=== PATIENT | female | born 1940 | race Caucasian/White ===

== ENCOUNTER 2024-12-20 15:51 | Inpatient (IN) ==
--- NOTE | 2024-12-20 16:07 | Emergency Department Note ---
Impression & Plan Pneumonia, Acute respiratory acidosis, Respiratory failure, AMS (altered mental status) ED Provider Note NAME: CLINTON GALICIA AGE: 84 SEX: F : 1940 ARRIVES VIA: Ambulance INFORMANT: Patient, EMS, the patient's family. ED PROVIDER(S): Lenny Roth DO CHIEF COMPLAINT: Altered mental status HPI: The patient is an 84-year-old female who presented [facility] the emergency department [facility] jail for an evaluation of altered mental status. The patient was having worsening chest pain and difficulty breathing over the course of the last several days. The family went to visit the patient and they sent the patient to the emergency department for further evaluation. The patient himself is not really able to get my history. History is obtained from the family as well as EMS. ROS: See above HPI for pertinent positives & negatives. A total of 10 systems reviewed and were otherwise negative. PAST MEDICAL HISTORY: See Below PAST SURGICAL HISTORY: See Below FAMILY HISTORY: See Below SOCIAL HISTORY: See Below HOME MEDICATIONS: See Below ALLERGIES: See Below VITALS: See Below PHYSICAL EXAMINATION: GENERAL: The patient is listless and slow to respond to questions. EYES: The conjunctivae are clear. The pupils are round and reactive. EARS, NOSE, MOUTH AND THROAT: The nose is without any evidence of any deformity. NECK: The neck is nontender and supple. RESPIRATORY: Diminished breath sounds were noted throughout. Rales are noted in the right lung field. There was significant tachypnea noted. CARDIOVASCULAR: Regular rate and rhythm noted there no murmurs rubs or gallops normal S1 normal S2. GASTROINTESTINAL: The abdomen is soft. Abdomen is nontender. MUSCULOSKELETAL/EXTREMITIES: There is no evidence of gross deformity full range of motion is noted in the hips and shoulders. SKIN: Skin was cool and dry. Pedal edema was noted bilaterally. NEUROLOGIC: Patient is awake to loud verbal commands. Strength was diminished but symmetric. MEDICAL DECISION MAKING: The patient is an 84-year-old female who presented to the emergency department for an evaluation of difficulty breathing. The patient has been having worsening breathing difficulty at her jail over the course the last several days. The patient was seen by the daughter today and was sent to the emergency department for concerns of worsening symptoms. The patient was obtunded. She had abnormal lung sounds. Chest x-ray does appear to be consistent with pneumonia. There was no reported aspiration or vomiting but it is possible that this represents aspiration as well given the location of the infiltrate. The patient was treated with IV fluids and IV antibiotics. The patient was also treated with bronchodilator therapy. I discussed patient's laboratory and radiographic studies with the daughter. At this time the family would still not want the patient to get CPR or be on a ventilator. I [facility] the [facility] have agreed to evaluate the patient in the emergency department for further management and disposition. Triage Nursing notes reviewed. Prior medical records reviewed Vital Signs: reviewed and remarkable for tachypnea and hypoxia. Differential diagnosis: Reactive airway disease, pneumonia, pneumothorax, COPD, CHF, infections, cardiac ischemia, pulmonary embolism, musculoskeletal, gastrointestinal, as well as other pathologies. ER treatment provided: See below Diagnostics interpreted by me: ECG: EKG was obtained in the emergency department. My interpretation is normal sinus rhythm at 84 bpm. There is no ectopy. There is no acute ST segment abnormalities noted. This was compared to a tracing from October 17, 2020. No changes were noted. Cardiac Monitoring: An order was placed for continuous cardiac monitoring. The monitor shows a rate of 73 bpm with sinus rhythm. Laboratory studies: As stated above and show below. Imaging studies: See below. Radiographic imaging was reviewed by myself Consultation(s): Dr. Cummins who [facility]. ED COURSE: Procedures: none Critical Care: I have personally spent greater than 40 minutes of critical care time in the direct management of this patient. This includes bedside care, interpretation of diagnostic studies, and testing, discussion with consultants, patient, and family members, and other required patient management activities. This 40 minutes is in excess of all separately billable procedures. Past Med/Surg History Problem List (Updated 12/20/24 @ 18:00 by Lenny Roth DO) AMS (altered mental status) (Acute) Respiratory failure (Acute) Acute respiratory acidosis (Acute) Pneumonia (Acute) Boles cyst Osteoarthritis of left knee Obesity (BMI 30-39.9) GERD (gastroesophageal reflux disease) Dementia Social History Smoking Status: Unknown if ever smoked Current Living Situation: [facility] current occupational status: retired Feels Safe at Home: Yes Allergies Allergies Allergy/AdvReac Type Severity Reaction Status Date / Time iodine Allergy Unknown ON CENTRE Verified 12/20/24 16:45 CARE MED LIST Penicillins Allergy Unknown ON CENTRE Verified 12/20/24 16:45 CARE MED LIST Sulfa (Sulfonamide Allergy Unknown ON CENTRE Verified 12/20/24 16:45 Antibiotics) CARE MED LIST sulfamethoxazole Allergy Unknown ON CENTRE Verified 12/20/24 16:45 [From Bactrim] CARE MED LIST trimethoprim [From Bactrim] Allergy Unknown ON CENTRE Verified 12/20/24 16:45 CARE MED LIST cephalexin [From Keflex] Allergy ON CENTRE Verified 12/20/24 16:45 CARE MED LIST 131 tositumomab Allergy Unknown ON CENTRE Uncoded 12/20/24 16:45 CARE MED LIST Home Meds Home Medications Medication Instructions Recorded Confirmed acetaminophen 325 mg tablet 650 mg PO Q6 PRN PAIN/FEVER 10/17/20 12/20/24 (Tylenol) bisacodyl 10 mg rectal suppository 10 mg SC DAILY PRN Constipation 10/17/20 12/20/24 (Dulcolax (bisacodyl)) escitalopram oxalate 10 mg tablet 10 mg PO HS 10/17/20 12/20/24 (Lexapro) ferrous sulfate 325 mg (65 mg 325 mg PO QAM 10/17/20 12/20/24 iron) tablet (FeroSul) gabapentin 100 mg tablet 100 mg PO TIDM 10/17/20 12/20/24 lidocaine 4 % topical patch 1 patch topical DAILY 10/17/20 12/20/24 memantine 10 mg tablet 10 mg PO BIDM 10/17/20 12/20/24 nitroglycerin 0.4 mg sublingual 0.4 mg sublingual UD PRN Chest Pain 10/17/20 12/20/24 tablet (Nitrostat) pantoprazole 40 mg tablet,delayed 40 mg PO HS 10/17/20 12/20/24 release Bacillus coagulans 2 billion 1 tab PO BID 12/20/24 12/20/24 cell-vitamin D3 5 mcg chewable tablet (Probiotic (with Vitamin D3)) acetaminophen 325 mg tablet 650 mg PO TIDM 12/20/24 12/20/24 (Tylenol) aluminum-mag hydroxide-simethicone 15 ml PO Q6H PRN EPIGASTRIC PAIN 12/20/24 12/20/24 400 mg-400 mg-40 mg/5 mL oral susp aspirin 81 mg tablet,delayed 81 mg PO DAILY 12/20/24 12/20/24 release atropine 1 % eye drops 2 drp buccal Q1H PRN EXCESSIVE 12/20/24 12/20/24 SECRETIONS bupropion HCl 100 mg tablet 200 mg PO BIDM 12/20/24 12/20/24 lamotrigine 25 mg tablet (Lamictal) 25 mg PO HS 12/20/24 12/20/24 morphine concentrate 20 mg/mL oral 10 mg sublingual Q1H PRN Pain 12/20/24 12/20/24 syringe (FOR ORAL USE ONLY) polyethylene glycol 3350 17 17 g PO DAILY 12/20/24 12/20/24 gram/dose oral powder (Miralax) promethazine 25 mg/mL injection 25 mg IM Q8H PRN NAUSEA/VOMITING 12/20/24 12/20/24 solution FOR 14 DAYS risperidone 0.25 mg tablet 0.25 mg PO BIDM 12/20/24 12/20/24 sennosides 8.6 mg-docusate sodium 1 tab-cap PO BIDM 12/20/24 12/20/24 50 mg tablet (Senna Plus) Results & Data (ED) Vital Signs Vital Signs - 24 hr 12/20/24 16:10 12/20/24 16:10 12/20/24 16:20 Temperature 36.9 C Temperature Source Axillary Pulse Rate 84 Pulse Rate [Apical] 98 H 83 Pulse Rhythm [Apical] Regular Respiratory Rate 26 H 24 25 H Respiratory Effort / Characteristics Spontaneous Labored Spontaneous Labored Spontaneous Labored Respiratory Depth Normal Blood Pressure 95/70 L Blood Pressure [Right Arm] 100/52 L 87/56 L Blood Pressure Mean 78 Blood Pressure Mean [Right Arm] 68 66 Pulse Oximetry 95 94 95 Oxygen Delivery Method Room Air Non-rebreather Non-rebreather Oxygen Flow Rate 15 15 Sepsis Recent Fever Within 48 Hours No Sepsis New/Unexplained Change in Mental Status N/A Sepsis Action Taken by Nursing Physician Notified 12/20/24 16:30 12/20/24 16:33 12/20/24 16:45 Temperature Temperature Source Pulse Rate 81 Pulse Rate [Apical] 83 88 Pulse Rhythm [Apical] Respiratory Rate 24 25 H Respiratory Effort / Characteristics Spontaneous Labored Spontaneous Labored Respiratory Depth Blood Pressure Blood Pressure [Right Arm] 95/70 L 118/62 Blood Pressure Mean Blood Pressure Mean [Right Arm] 78 80 Pulse Oximetry 94 93 Oxygen Delivery Method Non-rebreather Non-rebreather Oxygen Flow Rate 13 13 Sepsis Recent Fever Within 48 Hours Sepsis New/Unexplained Change in Mental Status Sepsis Action Taken by Nursing 12/20/24 16:59 Temperature Temperature Source Pulse Rate 73 Pulse Rate [Apical] Pulse Rhythm [Apical] Respiratory Rate Respiratory Effort / Characteristics Respiratory Depth Blood Pressure Blood Pressure [Right Arm] Blood Pressure Mean Blood Pressure Mean [Right Arm] Pulse Oximetry 93 Oxygen Delivery Method Non-rebreather Oxygen Flow Rate 13 Sepsis Recent Fever Within 48 Hours Sepsis New/Unexplained Change in Mental Status Sepsis Action Taken by [facility] Medications Current Medication List: was personally reviewed by me Laboratory Data Attestation: I reviewed the patient's lab results. 12/20/24 16:03 12/20/24 16:03 Lab Results 12/20/24 12/20/24 12/20/24 Range/Units 16:03 16:41 17:05 WBC 2.96 L (4.8-10.8) K/ul RBC 3.52 L (4.20-5.40) M/uL Hgb 11.0 L (12.0-16.0) g/dl Hct 35.2 L (37.0-47.0) % MCV 100.0 (80.0-100.0) fL MCH 31.3 (25.0-34.0) pg MCHC 31.3 L (32.0-36.0) g/dL RDW Std Deviation 49.1 H (36.4-46.3) fL RDW Coeff of Guilherme 13.3 (11.5-14.5) % Plt Count 169 (130-400) K/uL MPV 10.4 (9.4-12.4) fL Immature Gran % (Auto) 0.3 % Neut % (Auto) 73.0 % Lymph % (Auto) 15.9 % [place] % (Auto) 10.1 % Eos % (Auto) 0.0 % Baso % (Auto) 0.7 % Neut # (Auto) 2.16 (1.40-6.50) K/uL Lymph # (Auto) 0.47 L (1.20-3.40) K/uL [place] # (Auto) 0.30 (0.11-0.59) K/uL Eos # (Auto) 0.00 (0.00-0.50) K/uL Baso # (Auto) 0.02 (0.00-0.20) K/uL Immature Gran # (Auto) 0.01 (0.01-0.20) K/uL PT 11.4 (9.0-12.0) Seconds INR 1.1 (0.9-1.1) APTT 25 (21-31) Seconds PTT Ratio 0.9 VBG pH 7.27 L (7.36-7.41) VBG pCO2 60 H (38-50) mmHg VBG pO2 30 mmHg VBG HCO3 28 mmol/L VBG O2 Saturation < 60.0 % VBG Base Excess -0.6 mEq/L Sodium 142 (136-145) mmol/L Potassium 4.1 (3.5-5.1) mmol/L Chloride 109 H (98-107) mmol/L Carbon Dioxide 27 (21-32) mmol/L Anion Gap 6 (3-11) BUN 23 (6-23) mg/dl Creatinine 0.73 (0.6-1.2) mg/dl Est Cr Clr Drug Dosing 65.3 ml/min eGFR 81.55 BUN/Creatinine Ratio 31.5 H (10-20) Glucose 109 H (70-99(Fasting)) mg/dl Lactate 2.1 H* (0.4-2.0) mmol/L Calcium 8.1 L (8.6-10.3) mg/dl Magnesium 1.8 (1.7-2.4) mg/dl Total Bilirubin 0.8 (0.2-1.0) mg/dl Direct Bilirubin TNP AST 19 (13-39) U/L ALT 10 (7-52) U/L Alkaline Phosphatase 59 (34-104) U/L Troponin I High Sens 37.9 H (0-14) pg/ml Total Protein 5.5 L (6.0-8.3) gm/dl Albumin 3.0 L (3.4-5.0) gm/dl Procalcitonin 2.10 H (0-0.5) ng/ml Urine Color Urine Appearance (Clear) Urine pH (4.5-7.5) Ur Specific [place] (1.000-1.030) Urine Protein (Negative) Urine Glucose (UA) (Negative) Urine Ketones (Negative) Urine Blood (Negative) Urine Nitrite (Negative) Urine Bilirubin (Negative) Urine Urobilinogen (Negative) Ur Leukocyte Esterase (Negative) Urine RBC (0-2) /hpf Urine WBC (0-5) /hpf Ur Epithelial Cells (0-2) /hpf Calcium Oxalate Crystal (None Prsent) Urine Bacteria (None Seen) Urine Comment Adenovirus (PCR) Not Detected (NotDetected) B. pertussis DNA (PCR) Not Detected (NotDetected) B.parapertussis DNA PCR Not Detected (NotDetected) C. pneumoniae DNA (PCR) Not Detected (NotDetected) Coronavirus OC43 (PCR) Not Detected (NotDetected) Coronavirus HKU1 (PCR) Not Detected (NotDetected) Coronavirus 229E (PCR) Not Detected (NotDetected) SARS-CoV-2 (PCR) Not Detected (NotDetected) Coronavirus NL63 (PCR) Not Detected (NotDetected) Human Metapneumovir PCR Not Detected (NotDetected) Influenza Type A (PCR) Not Detected (NotDetected) Influenza Type B (PCR) Not Detected (NotDetected) M. pneumoniae (PCR) Not Detected (NotDetected) Parainfluenza 1 (PCR) Not Detected (NotDetected) Parainfluenza 2 (PCR) Not Detected (NotDetected) Parainfluenza 3 (PCR) Not Detected (NotDetected) Parainfluenza 4 (PCR) Not Detected (NotDetected) RSV (PCR) Not Detected (NotDetected) Entero/Rhino (PCR) Not Detected (NotDetected) 12/20/24 12/20/24 Range/Units 17:07 17:33 WBC (4.8-10.8) K/ul RBC (4.20-5.40) M/uL Hgb (12.0-16.0) g/dl Hct (37.0-47.0) % MCV (80.0-100.0) fL MCH (25.0-34.0) pg MCHC (32.0-36.0) g/dL RDW Std Deviation (36.4-46.3) fL RDW Coeff of Guilherme (11.5-14.5) % Plt Count (130-400) K/uL MPV (9.4-12.4) fL Immature Gran % (Auto) % Neut % (Auto) % Lymph % (Auto) % [place] % (Auto) % Eos % (Auto) % Baso % (Auto) % Neut # (Auto) (1.40-6.50) K/uL Lymph # (Auto) (1.20-3.40) K/uL [place] # (Auto) (0.11-0.59) K/uL Eos # (Auto) (0.00-0.50) K/uL Baso # (Auto) (0.00-0.20) K/uL Immature Gran # (Auto) (0.01-0.20) K/uL PT (9.0-12.0) Seconds INR (0.9-1.1) APTT (21-31) Seconds PTT Ratio VBG pH (7.36-7.41) VBG pCO2 (38-50) mmHg VBG pO2 mmHg VBG HCO3 mmol/L VBG O2 Saturation % VBG Base Excess mEq/L Sodium (136-145) mmol/L Potassium (3.5-5.1) mmol/L Chloride (98-107) mmol/L Carbon Dioxide (21-32) mmol/L Anion Gap (3-11) BUN (6-23) mg/dl Creatinine (0.6-1.2) mg/dl Est Cr Clr Drug Dosing ml/min eGFR BUN/Creatinine Ratio (10-20) Glucose (70-99(Fasting)) mg/dl Lactate (0.4-2.0) mmol/L Calcium (8.6-10.3) mg/dl Magnesium (1.7-2.4) mg/dl Total Bilirubin (0.2-1.0) mg/dl Direct Bilirubin 0.3 H AST (13-39) U/L ALT (7-52) U/L Alkaline Phosphatase (34-104) U/L Troponin I High Sens (0-14) pg/ml Total Protein (6.0-8.3) gm/dl Albumin (3.4-5.0) gm/dl Procalcitonin (0-0.5) ng/ml Urine Color Yellow Urine Appearance Cloudy A (Clear) Urine pH 5.5 (4.5-7.5) Ur Specific [place] 1.025 (1.000-1.030) Urine Protein Trace H (Negative) Urine Glucose (UA) Negative (Negative) Urine Ketones Negative (Negative) Urine Blood Negative (Negative) Urine Nitrite Negative (Negative) Urine Bilirubin Negative (Negative) Urine Urobilinogen Negative (Negative) Ur Leukocyte Esterase 1+ H (Negative) Urine RBC 0-2 (0-2) /hpf Urine WBC 21-50 H (0-5) /hpf Ur Epithelial Cells 11-20 H (0-2) /hpf Calcium Oxalate Crystal Present A (None Prsent) Urine Bacteria 3+ H (None Seen) Urine Comment Adenovirus (PCR) (NotDetected) B. pertussis DNA (PCR) (NotDetected) B.parapertussis DNA PCR (NotDetected) C. pneumoniae DNA (PCR) (NotDetected) Coronavirus OC43 (PCR) (NotDetected) Coronavirus HKU1 (PCR) (NotDetected) Coronavirus 229E (PCR) (NotDetected) SARS-CoV-2 (PCR) (NotDetected) Coronavirus NL63 (PCR) (NotDetected) Human Metapneumovir PCR (NotDetected) Influenza Type A (PCR) (NotDetected) Influenza Type B (PCR) (NotDetected) M. pneumoniae (PCR) (NotDetected) Parainfluenza 1 (PCR) (NotDetected) Parainfluenza 2 (PCR) (NotDetected) Parainfluenza 3 (PCR) (NotDetected) Parainfluenza 4 (PCR) (NotDetected) RSV (PCR) (NotDetected) Entero/Rhino (PCR) (NotDetected) Administered Medications Discontinued Medications Albuterol (Albut/Ipratrop 3mg/0.5mg Neb 3 Ml Vial) 3 ml NEB NOW STA; Protocol Stop: 12/20/24 17:51 Last Admin: 12/20/24 18:07 Dose: 3 ml Documented By: SELENA Ceftriaxone Sodium (Rocephin) 2,000 mg in 50 mls @ 100 mls/hr IV NOW STA Stop: 12/20/24 16:49 Last Admin: 12/20/24 18:01 Dose: 100 mls/hr Documented By: SELENA Sodium Chloride (Nss) 500 mls @ 999 mls/hr IV .Q31M ONE Stop: 12/20/24 17:10 Last Admin: 12/20/24 17:52 Dose: 999 mls/hr Documented By: SELENA Imaging Data Attestation: I personally reviewed and interpreted this imaging study as follows: My Impression: 1 view chest x-ray was obtained in the emergency department. My interpretation is right lower lobe infiltrate with elevation of the right hemidiaphragm, final report below. Radiologist's Impression: Chest X-Ray 12/20/24 15:55 Exam: Chest one view portable Reason for exam: Sepsis Previous studies: 10/17/2020. FINDINGS: Heart is moderately enlarged. Extensive right perihilar lung consolidation is seen with less extensive consolidation in the left perihilar and lower lobe regions. On the right further consolidation seen in the right middle and lower lobe as well. Underlying pulmonary venous congestion is most likely present. Small bilateral pleural effusions present. Chronic elevation of the right hemidiaphragm is unchanged. IMPRESSION: 1. Cardiomegaly with significant pulmonary venous hypertension. 2. Significant abnormal perihilar and lower lobe as well as right middle lobe lung consolidation, right side greater than left, with small pleural effusions. 3. Findings may represent CHF, ARDS with sepsis and/or pneumonitis. Radiographic follow-up is recommended. Electronically signed by Bridger Núñez 12-20-2024 5:01 PM Discharge Plan Visit Data Stated Complaint: CHEST PAIN, SOB ED Provider: Lenny Roth Discharge Problem: Pneumonia, Acute respiratory acidosis, Respiratory failure, AMS (altered mental status) Patient Disposition: Being Evaluated by Hospitalist Condition: Fair Prescriptions Prescriptions: No Action acetaminophen [Tylenol] 325 mg Tablet 650 mg PO Q6 MDD 3 GRAMS APAP/24 HOURS PRN (Reason: PAIN/FEVER) lidocaine 4 % Adhesive Patch,Medicated 1 patch TOPICAL DAILY Rx Instructions: PUT ON QAM, REMOVE AT HS bisacodyl [Dulcolax (bisacodyl)] 10 mg Suppository 10 mg SC DAILY PRN (Reason: Constipation) Rx Instructions: per bowel protocol pantoprazole 40 mg Tablet,Delayed Release (Dr/Ec) 40 mg PO HS ferrous sulfate [FeroSul] 325 mg (65 mg iron) tablet 325 mg PO QAM nitroglycerin [Nitrostat] 0.4 mg Tablet, Sublingual 0.4 mg sublingual UD PRN (Reason: Chest Pain) escitalopram oxalate [Lexapro] 10 mg Tablet 10 mg PO HS memantine 10 mg Tablet 10 mg PO BIDM gabapentin 100 mg Tablet 100 mg PO TIDM acetaminophen [Tylenol] 325 mg Tablet 650 mg PO TIDM MDD 3 GRAMS APAP/24 HOURS sennosides-docusate sodium [Senna Plus] 8.6-50 mg Tablet 1 tab-cap PO BIDM risperidone [Risperdal] 0.25 mg Tablet 0.25 mg PO BIDM aspirin 81 mg Tablet,Delayed Release (Dr/Ec) 81 mg PO DAILY lamotrigine [Lamictal] 25 mg Tablet 25 mg PO HS bupropion HCl 100 mg tablet 200 mg PO BIDM promethazine 25 mg/mL Solution 25 mg IM Q8H PRN (Reason: NAUSEA/VOMITING FOR 14 DAYS) Rx Instructions: STARTED 12/20/24 polyethylene glycol 3350 [Miralax] 17 gram/dose Powder 17 g PO DAILY atropine 1 % Drops 2 drp BUCCAL Q1H PRN (Reason: EXCESSIVE SECRETIONS) alum-mag hydroxide-simeth [Maalox Plus Extra Strength] 400-400-40 mg/5 mL Suspension 15 ml PO Q6H PRN (Reason: EPIGASTRIC PAIN) morphine concentrate 20 mg/mL Syringe 10 mg SUBLINGUAL Q1H PRN (Reason: Pain) Probiotic (with Vitamin D3) 2 billion cell- 5 mcg Tablet,Chewable 1 tab PO BID Referrals Referrals: [facility] [Primary Care Provider] -
[2024-12-20 16:42] LABS: Hematocrit (blood only) 35.2 % (37.0-47.0); Hemoglobin 11.0 g/dl (12.0-16.0); Mean Corpuscular Hemoglobin 31.3 pg (25.0-34.0); Mean Corpuscular Volume 100.0 fL (80.0-100.0); Platelet Count 169 K/uL (130-400); RDW Standard Deviation 49.1 fL (36.4-46.3); Red Blood Count 3.52 M/uL (4.20-5.40); White Blood Count 2.96 K/ul (4.8-10.8)
[2024-12-20 16:43] LABS: Immature Granulocytes # (auto) 0.01 K/uL (0.01-0.20); Immature Granulocytes % (auto) 0.3 %
[2024-12-20 16:49] LABS: Alanine Aminotransferase 10 U/L (7-52); Alkaline Phosphatase 59 U/L (34-104); Anion Gap 6 (3-11); Bilirubin,Total 0.8 mg/dl (0.2-1.0); Blood Urea Nitrogen 23 mg/dl (6-23); Calcium 8.1 mg/dl (8.6-10.3); Carbon Dioxide 27 mmol/L (21-32); Chloride 109 mmol/L (98-107); Creatinine Clr Calc Pharmacy 65.3 ml/min; Glucose 109 mg/dl (70-99(Fasting)); Magnesium 1.8 mg/dl (1.7-2.4); Potassium 4.1 mmol/L (3.5-5.1); Sodium 142 mmol/L (136-145); Total Protein 5.5 gm/dl (6.0-8.3)
[2024-12-20 16:52] LABS: INR 1.1 (0.9-1.1); Partial Thromboplastin Time 25 Seconds (21-31); Prothrombin Time 11.4 Seconds (9.0-12.0)
--- NOTE | 2024-12-20 17:01 | XRay Report ---
Exam: Chest one view portable Reason for exam: Sepsis Previous studies: 10/17/2020. FINDINGS: Heart is moderately enlarged. Extensive right perihilar lung consolidation is seen with less extensive consolidation in the left perihilar and lower lobe regions. On the right further consolidation seen in the right middle and lower lobe as well. Underlying pulmonary venous congestion is most likely present. Small bilateral pleural effusions present. Chronic elevation of the right hemidiaphragm is unchanged. IMPRESSION: 1. Cardiomegaly with significant pulmonary venous hypertension. 2. Significant abnormal perihilar and lower lobe as well as right middle lobe lung consolidation, right side greater than left, with small pleural effusions. 3. Findings may represent CHF, ARDS with sepsis and/or pneumonitis. Radiographic follow-up is recommended. Electronically signed by Bridger úNñez 12-20-2024 5:01 PM
[2024-12-20 17:28] LABS: Base Excess VBG -0.6 mEq/L; HCO3 VBG 28 mmol/L; Oxygen Saturation VBG < 60.0 %; PCO2 VBG 60 mmHg (38-50); PO2 VBG 30 mmHg; pH VBG 7.27 (7.36-7.41)
[2024-12-20 17:47] LABS: Appearance Urine Cloudy (Clear); Glucose Urine UA Negative (Negative)
[2024-12-20 17:48] LABS: Chlamydia pneumoniae PCR Not Detected (NotDetected); Coronavirus 229E PCR Not Detected (NotDetected); Coronavirus CoV-2 (COVID19)PCR Not Detected (NotDetected); Coronavirus HKU1 PCR Not Detected (NotDetected); Coronavirus NL63 PCR Not Detected (NotDetected); Coronavirus OC43PCR Not Detected (NotDetected); Human Metapneumovirus PCR Not Detected (NotDetected); Parainfluenza Virus 1 PCR Not Detected (NotDetected); Parainfluenza Virus 2 PCR Not Detected (NotDetected); Parainfluenza Virus 3 PCR Not Detected (NotDetected); Parainfluenza Virus 4 PCR Not Detected (NotDetected); Respiratory Syncytial VirusPCR Not Detected (NotDetected); Rhinovirus/Enterovirus PCR Not Detected (NotDetected)
[2024-12-20] MEDS: SODIUM CHLORIDE 0.9% 500 ML IV ONE ×2 (17:52→18:56)
[2024-12-20] MEDS: cefTRIAXone SODIUM 2,000 MG/50 ML BAG IV STA (18:01)
[2024-12-20] MEDS: ALBUT/IPRATROP 3MG/0.5MG NEB 3 ML VIAL NEB STA (18:07)
[2024-12-20] MEDS ORDERED: VANCOMYCIN CONSULT ACTIVE PRN (19:06)
--- NOTE | 2024-12-20 19:23 | History & Physical Report ---
Date of Service December 20, 2024 Assessment & Plan (1) Respiratory failure: (2) Acute respiratory acidosis: (3) AMS (altered mental status): (4) Pneumonia: Plan #Hypoxic respiratory failure/hypercapnic respiratory failure appears to have an infiltrateher leukopenia and tachypnea would make this sepsis present on admission, concern about septic shock given her at times hypotensive readings. Concurrently, I have significant concerns about her having pulmonary edema at the same timegiven that that would be indicative of a very severe multiorgan decompensation that may not be able to be stabilized. To better delineate what is going on in her lungs I have ordered a stat noncontrast chest CT to better discern how much is infiltrate and how much is pulmonary edema, case signed out to overnight coverage for ongoing vigilance and follow-up as far as the pneumonia itselfgiven her borderline septic shock as well as respiratory failure, will cover for both MRSA and Pseudomonas until she stabilizes or proven otherwisevancomycin and cefepime for now, MRSA naris, follow cultures, serial exams. - As far as the potential for pulmonary edemaif she has pulmonary edema, it would really depend on what her blood pressures are doingwould hesitate to use bolus dosing of diuretics, but where her pressures are currently could be amenable to a diuretic drip, certainly BiPAP would be of benefit, and she may need ICU for cardiac pressors (daughter is okay with this) #hypotension if it is all sepsis/septic shock, certainly could give more fluid boluses, but if there is pulmonary edema obviously this would be contraindicatedand then we may need to moved to ICU for peripheral vasoconstrictor pressor support sooner rather than later depending on her progress. #Delirium from all of above. Unclear baseline with her history of dementia, although it sounds like it is certainly far better than this. As I described delirium to the patient's daughter she recognized the syndrome and remembered that the patient had it previously about 7 years ago. Discussed the natural history of deliriums and how they often outlast the inciting illnesses #dementia Home meds will have to be on hold until she is alert enough to safely swallow #DVT prophylaxis Lovenox #elevated troponin appears to be consistent with demand ischemia given her hypoxia and hypotensioncontinue to trend until peak. Echocardiogram in the morning. Case discussed with overnight coverage as well as overnight ICU coverage. History of Present Illness Chief Complaint: unresponsive Primary Care Provider: [facility] patient is an 84-year-old female presenting from [facility] unresponsive. Her daughter notes that on Friday she was in her normal state of healthnoting that they were playing [employer] and the patient was correcting some of the daughter's mistakes. Today she found her to be unresponsive. She had very coarse respirations. No HPI or review of systems obtainable from patient. She was sent to the ER for further evaluation. Here she was found to be hypoxic as well as hypercapnic with a chest x-ray consistent with infiltrate and possibly pulmonary edema. Allergies Allergy/AdvReac Type Severity Reaction Status Date / Time iodine Allergy Unknown ON CENTRE Verified 12/20/24 16:45 CARE MED LIST Penicillins Allergy Unknown ON CENTRE Verified 12/20/24 16:45 CARE MED LIST Sulfa (Sulfonamide Allergy Unknown ON CENTRE Verified 12/20/24 16:45 Antibiotics) CARE MED LIST sulfamethoxazole Allergy Unknown ON CENTRE Verified 12/20/24 16:45 [From Bactrim] CARE MED LIST trimethoprim [From Bactrim] Allergy Unknown ON CENTRE Verified 12/20/24 16:45 CARE MED LIST cephalexin [From Keflex] Allergy ON CENTRE Verified 12/20/24 16:45 CARE MED LIST 131 tositumomab Allergy Unknown ON CENTRE Uncoded 12/20/24 16:45 CARE MED LIST Home Medications Medication Instructions Recorded Confirmed Type acetaminophen 325 mg tablet 650 mg PO Q6 PRN PAIN/FEVER 10/17/20 12/20/24 History (Tylenol) bisacodyl 10 mg rectal suppository 10 mg CO DAILY PRN Constipation 10/17/20 12/20/24 History (Dulcolax (bisacodyl)) escitalopram oxalate 10 mg tablet 10 mg PO HS 10/17/20 12/20/24 History (Lexapro) ferrous sulfate 325 mg (65 mg 325 mg PO QAM 10/17/20 12/20/24 History iron) tablet (FeroSul) gabapentin 100 mg tablet 100 mg PO TIDM 10/17/20 12/20/24 History lidocaine 4 % topical patch 1 patch topical DAILY 10/17/20 12/20/24 History memantine 10 mg tablet 10 mg PO BIDM 10/17/20 12/20/24 History nitroglycerin 0.4 mg sublingual 0.4 mg sublingual UD PRN Chest Pain 10/17/20 12/20/24 History tablet (Nitrostat) pantoprazole 40 mg tablet,delayed 40 mg PO HS 10/17/20 12/20/24 History release Bacillus coagulans 2 billion 1 tab PO BID 12/20/24 12/20/24 History cell-vitamin D3 5 mcg chewable tablet (Probiotic (with Vitamin D3)) acetaminophen 325 mg tablet 650 mg PO TIDM 12/20/24 12/20/24 History (Tylenol) aluminum-mag hydroxide-simethicone 15 ml PO Q6H PRN EPIGASTRIC PAIN 12/20/24 12/20/24 History 400 mg-400 mg-40 mg/5 mL oral susp aspirin 81 mg tablet,delayed 81 mg PO DAILY 12/20/24 12/20/24 History release atropine 1 % eye drops 2 drp buccal Q1H PRN EXCESSIVE 12/20/24 12/20/24 History SECRETIONS bupropion HCl 100 mg tablet 200 mg PO BIDM 12/20/24 12/20/24 History lamotrigine 25 mg tablet (Lamictal) 25 mg PO HS 12/20/24 12/20/24 History morphine concentrate 20 mg/mL oral 10 mg sublingual Q1H PRN Pain 12/20/24 12/20/24 History syringe (FOR ORAL USE ONLY) polyethylene glycol 3350 17 17 g PO DAILY 12/20/24 12/20/24 History gram/dose oral powder (Miralax) promethazine 25 mg/mL injection 25 mg IM Q8H PRN NAUSEA/VOMITING 12/20/24 12/20/24 History solution FOR 14 DAYS risperidone 0.25 mg tablet 0.25 mg PO BIDM 12/20/24 12/20/24 History sennosides 8.6 mg-docusate sodium 1 tab-cap PO BIDM 12/20/24 12/20/24 History 50 mg tablet (Senna Plus) Past Med/Surg History Problem List AMS (altered mental status) (Acute) Respiratory failure (Acute) Acute respiratory acidosis (Acute) Pneumonia (Acute) Boles cyst Osteoarthritis of left knee Obesity (BMI 30-39.9) GERD (gastroesophageal reflux disease) Dementia Social History Smoking Status: Unknown if ever smoked Current Living Situation: [facility] current occupational status: retired Feels Safe at Home: Yes Review of Systems Review of Systems: Unobtainable due to cognitive status Physical Exam Physical Exam: Sedated and still appears to be in a degree of respiratory distress with mild degree of tachypnea and occasional accessory muscles. Normocephalic atraumatic mucous membranes moist. Cardio is distant and obscured by lung sounds. Lungs are coarse bilaterally probably a little more quiet on the right than the left, rhonchi maybe scattered rales no overt wheezes occasional accessory muscle use. Abdomen is soft nondistended no notable tenderness guarding rebound or rigidity. Extremities show bilateral lower extremity edema fairly symmetric. Neuro shows cranial nerves II through XII be grossly intact although no real neuroexam was able to be donejust no asymmetry at rest. Muscle tone appears to be equal at rest. Skin with mild pallor. Her CBC shows leukopenia with a white count of 3 hemoglobin 11, platelets 169, VBG shows a respiratory acidosis with a pCO2 of 60 and a pH of 7.27,, chest x-ray shows a right-sided infiltrate and question of some pulmonary edemavery difficult to interpret film. Procalcitonin 2.1. When I was in the room, her blood pressure was briefly 75 systolic, although I am not sure of the reliability of that reading given that rechecks a few minutes later had her up to 90/60 with no intervention. Results & Data Results & Data Vital Signs (Past 12 Hours) Vital Signs Temp Pulse Pulse Resp BP BP Pulse Ox 12/20/24 18:51 81 26 H 114/72 94 12/20/24 18:45 74/57 L 12/20/24 18:24 85 23 91/69 L 92 12/20/24 18:18 77 28 H 90/61 L 93 12/20/24 18:15 77 30 H 75/51 L 97 12/20/24 18:03 80 25 H 92/65 L 95 12/20/24 17:27 85 24 103/47 L 91 12/20/24 16:59 73 93 12/20/24 16:45 88 25 H 118/62 93 12/20/24 16:33 81 12/20/24 16:30 73 23 118/62 92 12/20/24 16:30 83 24 95/70 L 94 12/20/24 16:20 83 25 H 87/56 L 95 12/20/24 16:10 98 H 24 100/52 L 94 12/20/24 16:10 98.4 F 84 26 H 95/70 L 95 O2 Del Method O2 Flow Rate 12/20/24 18:51 Oxymask 7 12/20/24 18:45 12/20/24 18:24 Nebulizer 7 12/20/24 18:18 Nebulizer 12/20/24 18:15 Non-rebreather 12/20/24 18:03 Non-rebreather 12/20/24 17:27 Non-rebreather 12/20/24 16:59 Non-rebreather 12/20/24 16:45 Non-rebreather 12/20/24 16:33 12/20/24 16:30 Non-rebreather 12/20/24 16:30 Non-rebreather 12/20/24 16:20 Non-rebreather 12/20/24 16:10 Non-rebreather 12/20/24 16:10 Room Air PG Care Time/CCT Total # of Minutes Spent Total Time Spent with Patient: Total time spent is greater than 50% in coordination of care (as documented) at patient's floor/unit and/or counseling patient: Coding Level of Care Code 97511 INT INP/OBS CARE 3/75MIN Diagnoses Respiratory failure J96.90 Acute respiratory acidosis J96.02 AMS (altered mental status) R41.82 Pneumonia J18.9
--- NOTE | 2024-12-20 19:51 | CT Scan Report ---
EXAMINATION: Chest CT without CLINICAL HISTORY: Hypoxia, infiltrate versus edema COMPARISON: 12/20/2024 chest radiograph TECHNIQUE: Contiguous axial images were obtained through the chest without the use of intravenous contrast. Sagittal and coronal reformations are supplied. FINDINGS: Severe motion artifact noted. Allowing for this, confluent airspace consolidation present within the lower lobes as well as right upper and right middle lobes. Air bronchograms present. Small bilateral pleural effusions noted. Trachea and mainstem bronchi calcified and patent. Distal bronchioles not well evaluated. Heart size mildly to moderately enlarged. No adenopathy identified. Limited visualization of the upper abdomen shows no acute abnormality with advanced motion artifact. Surgical hardware present on the lumbar spine. Osseous demineralization noted. No displaced rib fracture or pneumothorax. IMPRESSION: Bibasilar airspace consolidation with air bronchograms and patchy opacification throughout the right upper and right middle lobes, likely representing multifocal pneumonia. Close clinical and imaging follow-up suggested. ACT 112: Positive. There are findings on this examination that require communication between the performing entity and the patient following Patient Test Result Information Act ([place] ACT 112) guidelines. Electronically signed by Charlotte Mata 12-20-2024 7:51 PM
[2024-12-20] MEDS: VANCOMYCIN HCL 2,000 MG in SODIUM CHLORIDE 0.9% 500 ML IV ONE (19:53)
[2024-12-20 20:05] LABS: Base Excess VBG -1.7 mEq/L; HCO3 VBG 27 mmol/L; Oxygen Saturation VBG < 60.0 %; PCO2 VBG 61 mmHg (38-50); PO2 VBG < 20 mmHg; pH VBG 7.25 (7.36-7.41)
--- NOTE | 2024-12-20 20:32 | Pharmacy Report ---
Pharmacy PK ABX Note - Date of Service December 20, 2024 - Assessment and Plan Assessment 84 year old F started on vancomycin and cefepime for hypoxic respiratory failure/sepsis and concerns for pneumonia. MRSA nasal and blood cultures pending. Plan Vancomycin * Loading dose: 2000 mg IV x 1 * Maintenance dose: 1000 mg IV every 12 hours * Regimen is predicted to achieve target AUC/SUDHIR of 400-600 mg/L.hr * Plan to obtain level if continued >48 hours Pharmacy will continue to follow and will adjust dose/frequency as necessary. Thank you. Pharmacy has transitioned to AUC monitoring for vancomycin. AUC/SUDHIR is the preferred PK/PD target and is associated with decreased risk of nephrotoxicity compared to traditional trough targets.
[2024-12-20] MEDS: CEFEPIME 2000MG 2,000 MG/20 ML SYR IV SCH (21:24)
[2024-12-20] MEDS ORDERED: GLUCAGON FOR INJ 1 MG VIAL SQ PRN (22:30)
[2024-12-20] MEDS ORDERED: DEXTROSE 50% 50 ML SYRINGE IV PRN (22:30)
[2024-12-20] MEDS ORDERED: GLUCOSE 10 TAB/TUBE PO PRN (22:30)
[2024-12-20] MEDS ORDERED: GLUCOSE 40% GEL 15 GM TUBE PO PRN (22:30)
[2024-12-20] MEDS ORDERED: CARBOHYDRATES FOR HYPOGLYCEMIA PO PRN (22:30)
[2024-12-20] MEDS: INSULIN ASPART PER UNIT CHARGE SC SCH (23:05)
[2024-12-20] MEDS: LACTATED RINGER'S 1,000 ML IV SCH (23:06)
[2024-12-20] MEDS: ENOXAPARIN INJ 40 MG/0.4 ML SYR SQ SCH (23:07)
[2024-12-21 02:27] LABS: Hematocrit (blood only) 36.8 % (37.0-47.0); Hemoglobin 11.5 g/dl (12.0-16.0); Mean Corpuscular Hemoglobin 31.3 pg (25.0-34.0); Mean Corpuscular Volume 100.3 fL (80.0-100.0); Platelet Count 150 K/uL (130-400); RDW Standard Deviation 49.8 fL (36.4-46.3); Red Blood Count 3.67 M/uL (4.20-5.40); White Blood Count 4.52 K/ul (4.8-10.8)
[2024-12-21 02:39] LABS: Anion Gap 6.0 (3-11); Blood Urea Nitrogen 25.0 mg/dl (6-23); Calcium 8.3 mg/dl (8.6-10.3); Carbon Dioxide 23.0 mmol/L (21-32); Chloride 111.0 mmol/L (98-107); Creatinine Clr Calc Pharmacy 67.0 ml/min; Glucose 101.0 mg/dl (70-99(Fasting)); Potassium 4.2 mmol/L (3.5-5.1); Sodium 140.0 mmol/L (136-145)
[2024-12-21 03:20] LABS: ALC (manual) 1.72 K/uL (1.2-3.4); ANC (manual) 2.31 K/uL (1.4-6.5); Large Granular Lymph # (manua 0.86 K/uL; Large Granular Lymph % (manual) 19 %; Polychromasia 1+
[2024-12-21] MEDS: VANCOMYCIN HCL / NSS 1,000 MG/270 ML BAG IV SCH (05:16)
[2024-12-21] MEDS ORDERED: Nursing to Pharmacy Communication SCH (06:15)
[2024-12-21] MEDS: INSULIN ASPART PER UNIT CHARGE SC SCH (06:28)
[2024-12-21] MEDS: ONDANSETRON INJ 2 MG/ML 2 ML VIAL IV PRN (08:08)
--- NOTE | 2024-12-21 09:10 | XCELERA ---
[id number]
[2024-12-21] MEDS: ALBUT/IPRATROP 3MG/0.5MG NEB 3 ML VIAL NEB SCH (09:39)
[2024-12-21] MEDS: SODIUM CHLOR 7% 4 ML NEB NEB SCH (09:39)
--- NOTE | 2024-12-21 09:41 | Electrocardiogram Report ---
Test Reason : Blood Pressure : */* mmHG Vent. Rate : 84 BPM Atrial Rate : 84 BPM P-R Int : 168 ms QRS Dur : 72 ms QT Int : 398 ms P-R-T Axes : 79 -7 33 degrees QTcB Int : 470 ms Normal sinus rhythm Low voltage QRS Poor R wave progression, consider anterior KS vs. lead placement vs. LVH Abnormal ECG When compared with ECG of 17-Oct-2020 12:42, Questionable change in initial forces of Septal leads Nonspecific T wave abnormality now evident in Lateral leads Confirmed by Lenny De León ([id number]) on 12/21/2024 9:41:14 AM Referred By: REFERRED SELF Confirmed By: Lenny De León
--- NOTE | 2024-12-21 10:00 | Electrocardiogram Report ---
Test Reason : Blood Pressure : */* mmHG Vent. Rate : 73 BPM Atrial Rate : 76 BPM P-R Int : 152 ms QRS Dur : 82 ms QT Int : 388 ms P-R-T Axes : 32 -10 87 degrees QTcB Int : 427 ms Normal sinus rhythm Low voltage QRS Septal infarct (cited on or before 17-Oct-2020) Abnormal ECG When compared with ECG of 20-Dec-2024 16:00, Questionable change in initial forces of Septal leads Confirmed by Lenny De León ([id number]) on 12/21/2024 10:00:10 AM Referred By: REFERRED SELF Confirmed By: Lenny De León
[2024-12-21] MEDS: guaiFENesin 600 MG TABCR PO SCH (10:10)
[2024-12-21] MEDS ORDERED: ACETYLCYSTEINE 20% INHAL SOLN 4ML ***DISPENSED BY RESP. INH SCH (11:15)
[2024-12-21] MEDS ORDERED: CEFEPIME 2000MG 2,000 MG/20 ML SYR IV SCH (11:15)
[2024-12-21] MEDS: ALBUMIN 25% 12.5 GM/50 ML VIAL IV ONE (11:20)
[2024-12-21] MEDS: PIPERACILLIN/TAZOBACTAM 4.5 GM/100 ML BAG IV SCH (11:24)
[2024-12-21 11:42] LABS: Hematocrit (blood only) 34.5 % (37.0-47.0); Hemoglobin 10.9 g/dl (12.0-16.0); Mean Corpuscular Hemoglobin 32.0 pg (25.0-34.0); Mean Corpuscular Volume 101.2 fL (80.0-100.0); Platelet Count 141 K/uL (130-400); RDW Standard Deviation 50.0 fL (36.4-46.3); Red Blood Count 3.41 M/uL (4.20-5.40); White Blood Count 7.58 K/ul (4.8-10.8)
[2024-12-21] MEDS: metroNIDAZOLE 500 MG/100 ML BAG IV SCH (11:53)
[2024-12-21 11:58] LABS: Alanine Aminotransferase 14.0 U/L (7-52); Albumin Globulin Ratio 1.2 (0.9-2); Alkaline Phosphatase 59.0 U/L (34-104); Anion Gap 6.0 (3-11); Bilirubin,Total 0.8 mg/dl (0.2-1.0); Blood Urea Nitrogen 27.0 mg/dl (6-23); Calcium 8.7 mg/dl (8.6-10.3); Carbon Dioxide 25.0 mmol/L (21-32); Chloride 111.0 mmol/L (98-107); Creatinine Clr Calc Pharmacy 69.0 ml/min; Globulin 2.5 gm/dl (2.5-4.0); Glucose 88.0 mg/dl (70-99(Fasting)); Potassium 4.2 mmol/L (3.5-5.1); Sodium 142.0 mmol/L (136-145); Total Protein 5.6 gm/dl (6.0-8.3)
[2024-12-21] MEDS: MIDODRINE HCL 2.5 MG TAB PO SCH (12:29)
--- NOTE | 2024-12-21 15:06 | Hospitalist Progress Note ---
Date of Service December 21, 2024 Assessment & Plan (1) Respiratory failure: (2) Acute respiratory acidosis: (3) AMS (altered mental status): (4) Pneumonia: Plan Gloria Romero is a 84 yo woman with PMH of dementia, bipolar depression, shes live in long term and is wheelchair bound her sister is a retired pscyhiatrist. daughter noticed she been having coughing spell and wheezing since last week, on 12/20/2024, presented to our hospital with hypoxic, septic shock, CT chest show pneumonia 12/21, 10-15 liter of oxygen, started on vapoteherm. flagyl added for aspiration coverage, #Hypoxic respiratory failure/hypercapnic respiratory failure septic shock f/u on lactate level cefepime, flagyl and vancomycin suspect microaspiration, HOB at 30 degree speech eval, stright NPO CT chest is more suggestive of pulmonary edema septic shock, lactate elevated was on IV fluid, hold fluid today given concern for volume overload gentle IV albumin, midrodrine monitor lactate level #Delirium, component of septic metabolic encephalopathy from all of above. Unclear baseline with her history of dementia, although it sounds like it is certainly far better than this. As I described delirium to the patient's daughter she recognized the syndrome and remembered that the patient had it previously about 7 years ago. Discussed the natural history of deliriums and how they often outlast the inciting illnesses #dementia Home meds will have to be on hold until she is alert enough to safely swallow - she's can no longer remember what she has for breakfast however, patient still highly verbal and interactive with daughter wheelchair dependence bipolar depression #DVT prophylaxis Lovenox #elevated troponin appears to be consistent with demand ischemia given her hypoxia and hypotensioncontinue to trend until peak. Echocardiogram in the morning. family update, daughter updated in person on 12/21/2024 Admission and Anticipated Discharge Date Admission Date: December 20, 2024 Subjective she's on 10-14 liter of oxygen added flagyl to cefepime for aspiration coverage, off fluid she should be straight NPO until her mental status improved per daughter, last week, have wheezing episode she has memory impairment for many year, but normally verbal and interactive patient can recognize the daughter, her sister is a retired psychiatry Review of Systems Review of Systems: Unable to obtain full ROS given AMS respiratory + for wheezing psych: + for bipolar depression Physical Exam Physical Exam: VITALS: Reviewed. WEIGHT/BMI reviewed. GEN: ill appearing psych; no psychosis HEENT -Head: NC/AT; -Mouth and throat: MMM. Normal gums, muc ernesto, palate,. Good dentition. NECK: Supple, with no masses. CV: RRR, no m/r/g. LUNGS: congested breath sound; wheezing; on 10-15 liter oxygen ABD: Soft, NT/ND, NBS, no masses or organomegaly. : N/A MSK: warm to touch EXT: No clubbing, cyanosis, or edema. NEURO: non-verbal, unable to follow comand Results & Data Results & Data Vital Signs (Past 12 Hours) Vital Signs Temp Pulse Pulse Resp BP Pulse Ox O2 Del Method 12/21/24 14:40 73 12/21/24 14:39 56 L 12/21/24 13:31 76 24 92 Oxymask 12/21/24 11:12 36.2 C L 71 22 124/62 90 Oxymask 12/21/24 09:39 66 24 90 Oxymask 12/21/24 08:08 36.7 C 70 28 H 155/97 H 92 Nasal Cannula 12/21/24 07:37 Oxymask 12/21/24 05:40 63 28 H 100/37 L 97 Oxymask 12/21/24 04:37 76 28 H 116/74 90 Oxymask O2 Flow Rate 12/21/24 14:40 12/21/24 14:39 12/21/24 13:31 13 12/21/24 11:12 15 12/21/24 09:39 5 12/21/24 08:08 5 12/21/24 07:37 5 12/21/24 05:40 5 12/21/24 04:37 4 Laboratory Results Laboratory Results - last 72 hr 12/20/24 12/20/24 12/20/24 16:03 16:41 17:05 WBC 2.96 L RBC 3.52 L Hgb 11.0 L Hct 35.2 L MCV 100.0 MCH 31.3 MCHC 31.3 L RDW Std Deviation 49.1 H RDW Coeff of Guilherme 13.3 Plt Count 169 MPV 10.4 Immature Gran % (Auto) 0.3 Neut % (Auto) 73.0 Lymph % (Auto) 15.9 Mckenzie % (Auto) 10.1 Eos % (Auto) 0.0 Baso % (Auto) 0.7 Neut # (Auto) 2.16 Lymph # (Auto) 0.47 L Mckenzie # (Auto) 0.30 Eos # (Auto) 0.00 Baso # (Auto) 0.02 Immature Gran # (Auto) 0.01 Neutrophils % (Manual) Lymphocytes % (Manual) Monocytes % (Manual) Basophils % (Manual) Metamyelocytes % (Man) Neutrophils # (Manual) Total Absolute Neuts Lymphocytes # (Manual) Total Abs Lymphocytes Monocytes # (Manual) Basophils # (Manual) Metamyelocytes # (Man) Large Granular Lymphs # Lrg Granular Lymphs Polychromasia Echinocytes PT 11.4 INR 1.1 APTT 25 PTT Ratio 0.9 VBG pH 7.27 L VBG pCO2 60 H VBG pO2 30 VBG HCO3 28 VBG O2 Saturation < 60.0 VBG Base Excess -0.6 Sodium 142 Potassium 4.1 Chloride 109 H Carbon Dioxide 27 Anion Gap 6 BUN 23 Creatinine 0.73 Est Cr Clr Drug Dosing 65.3 eGFR 81.55 BUN/Creatinine Ratio 31.5 H Glucose 109 H POC Glucose Lactate 2.1 H* Calcium 8.1 L Magnesium 1.8 Total Bilirubin 0.8 Direct Bilirubin TNP AST 19 ALT 10 Alkaline Phosphatase 59 Troponin I High Sens 37.9 H C-Reactive Protein B-Natriuretic Peptide Total Protein 5.5 L Albumin 3.0 L Globulin Albumin/Globulin Ratio Procalcitonin 2.10 H Urine Color Urine Appearance Urine pH Ur Specific Bern Urine Protein Urine Glucose (UA) Urine Ketones Urine Blood Urine Nitrite Urine Bilirubin Urine Urobilinogen Ur Leukocyte Esterase Urine RBC Urine WBC Ur Epithelial Cells Calcium Oxalate Crystal Urine Bacteria Urine Comment Nasal Screen MRSA (PCR) Adenovirus (PCR) Not Detected B. pertussis DNA (PCR) Not Detected B.parapertussis DNA PCR Not Detected C. pneumoniae DNA (PCR) Not Detected Coronavirus OC43 (PCR) Not Detected Coronavirus HKU1 (PCR) Not Detected Coronavirus 229E (PCR) Not Detected SARS-CoV-2 (PCR) Not Detected Coronavirus NL63 (PCR) Not Detected Human Metapneumovir PCR Not Detected Influenza Type A (PCR) Not Detected Influenza Type B (PCR) Not Detected M. pneumoniae (PCR) Not Detected Parainfluenza 1 (PCR) Not Detected Parainfluenza 2 (PCR) Not Detected Parainfluenza 3 (PCR) Not Detected Parainfluenza 4 (PCR) Not Detected RSV (PCR) Not Detected Entero/Rhino (PCR) Not Detected 12/20/24 12/20/24 12/20/24 17:07 17:33 17:50 WBC RBC Hgb Hct MCV MCH MCHC RDW Std Deviation RDW Coeff of Guilherme Plt Count MPV Immature Gran % (Auto) Neut % (Auto) Lymph % (Auto) Mckenzie % (Auto) Eos % (Auto) Baso % (Auto) Neut # (Auto) Lymph # (Auto) Mckenzie # (Auto) Eos # (Auto) Baso # (Auto) Immature Gran # (Auto) Neutrophils % (Manual) Lymphocytes % (Manual) Monocytes % (Manual) Basophils % (Manual) Metamyelocytes % (Man) Neutrophils # (Manual) Total Absolute Neuts Lymphocytes # (Manual) Total Abs Lymphocytes Monocytes # (Manual) Basophils # (Manual) Metamyelocytes # (Man) Large Granular Lymphs # Lrg Granular Lymphs Polychromasia Echinocytes PT INR APTT PTT Ratio VBG pH VBG pCO2 VBG pO2 VBG HCO3 VBG O2 Saturation VBG Base Excess Sodium Potassium Chloride Carbon Dioxide Anion Gap BUN Creatinine Est Cr Clr Drug Dosing eGFR BUN/Creatinine Ratio Glucose POC Glucose Lactate Calcium Magnesium Total Bilirubin Direct Bilirubin 0.3 H AST ALT Alkaline Phosphatase Troponin I High Sens 67.3 H* D C-Reactive Protein B-Natriuretic Peptide Total Protein Albumin Globulin Albumin/Globulin Ratio Procalcitonin Urine Color Yellow Urine Appearance Cloudy A Urine pH 5.5 Ur Specific Bern 1.025 Urine Protein Trace H Urine Glucose (UA) Negative Urine Ketones Negative Urine Blood Negative Urine Nitrite Negative Urine Bilirubin Negative Urine Urobilinogen Negative Ur Leukocyte Esterase 1+ H Urine RBC 0-2 Urine WBC 21-50 H Ur Epithelial Cells 11-20 H Calcium Oxalate Crystal Present A Urine Bacteria 3+ H Urine Comment Nasal Screen MRSA (PCR) Adenovirus (PCR) B. pertussis DNA (PCR) B.parapertussis DNA PCR C. pneumoniae DNA (PCR) Coronavirus OC43 (PCR) Coronavirus HKU1 (PCR) Coronavirus 229E (PCR) SARS-CoV-2 (PCR) Coronavirus NL63 (PCR) Human Metapneumovir PCR Influenza Type A (PCR) Influenza Type B (PCR) M. pneumoniae (PCR) Parainfluenza 1 (PCR) Parainfluenza 2 (PCR) Parainfluenza 3 (PCR) Parainfluenza 4 (PCR) RSV (PCR) Entero/Rhino (PCR) 12/20/24 12/20/24 12/20/24 19:44 21:29 22:23 WBC RBC Hgb Hct MCV MCH MCHC RDW Std Deviation RDW Coeff of Guilherme Plt Count MPV Immature Gran % (Auto) Neut % (Auto) Lymph % (Auto) Mckenzie % (Auto) Eos % (Auto) Baso % (Auto) Neut # (Auto) Lymph # (Auto) Mckenzie # (Auto) Eos # (Auto) Baso # (Auto) Immature Gran # (Auto) Neutrophils % (Manual) Lymphocytes % (Manual) Monocytes % (Manual) Basophils % (Manual) Metamyelocytes % (Man) Neutrophils # (Manual) Total Absolute Neuts Lymphocytes # (Manual) Total Abs Lymphocytes Monocytes # (Manual) Basophils # (Manual) Metamyelocytes # (Man) Large Granular Lymphs # Lrg Granular Lymphs Polychromasia Echinocytes PT INR APTT PTT Ratio VBG pH 7.25 L VBG pCO2 61 H VBG pO2 < 20 VBG HCO3 27 VBG O2 Saturation < 60.0 VBG Base Excess -1.7 Sodium Potassium Chloride Carbon Dioxide Anion Gap BUN Creatinine Est Cr Clr Drug Dosing eGFR BUN/Creatinine Ratio Glucose POC Glucose 97 Lactate 3.2 H* Calcium Magnesium Total Bilirubin Direct Bilirubin AST ALT Alkaline Phosphatase Troponin I High Sens C-Reactive Protein 7.93 H B-Natriuretic Peptide 444 H Total Protein Albumin Globulin Albumin/Globulin Ratio Procalcitonin Urine Color Urine Appearance Urine pH Ur Specific Bern Urine Protein Urine Glucose (UA) Urine Ketones Urine Blood Urine Nitrite Urine Bilirubin Urine Urobilinogen Ur Leukocyte Esterase Urine RBC Urine WBC Ur Epithelial Cells Calcium Oxalate Crystal Urine Bacteria Urine Comment Nasal Screen MRSA (PCR) Negative Adenovirus (PCR) B. pertussis DNA (PCR) B.parapertussis DNA PCR C. pneumoniae DNA (PCR) Coronavirus OC43 (PCR) Coronavirus HKU1 (PCR) Coronavirus 229E (PCR) SARS-CoV-2 (PCR) Coronavirus NL63 (PCR) Human Metapneumovir PCR Influenza Type A (PCR) Influenza Type B (PCR) M. pneumoniae (PCR) Parainfluenza 1 (PCR) Parainfluenza 2 (PCR) Parainfluenza 3 (PCR) Parainfluenza 4 (PCR) RSV (PCR) Entero/Rhino (PCR) 12/21/24 12/21/24 12/21/24 02:08 06:05 07:41 WBC 4.52 L RBC 3.67 L Hgb 11.5 L Hct 36.8 L MCV 100.3 H MCH 31.3 MCHC 31.3 L RDW Std Deviation 49.8 H RDW Coeff of Guilherme 13.4 Plt Count 150 MPV 9.9 Immature Gran % (Auto) Neut % (Auto) Lymph % (Auto) Mckenzie % (Auto) Eos % (Auto) Baso % (Auto) Neut # (Auto) Lymph # (Auto) Mckenzie # (Auto) Eos # (Auto) Baso # (Auto) Immature Gran # (Auto) Neutrophils % (Manual) 51 Lymphocytes % (Manual) 19 Monocytes % (Manual) 7 Basophils % (Manual) 2 Metamyelocytes % (Man) 2 Neutrophils # (Manual) 2.31 Total Absolute Neuts 2.31 Lymphocytes # (Manual) 0.86 L Total Abs Lymphocytes 1.72 Monocytes # (Manual) 0.32 Basophils # (Manual) 0.09 Metamyelocytes # (Man) 0.09 H Large Granular Lymphs 19 # Lrg Granular Lymphs 0.86 Polychromasia 1+ Echinocytes 1+ PT INR APTT PTT Ratio VBG pH VBG pCO2 VBG pO2 VBG HCO3 VBG O2 Saturation VBG Base Excess Sodium 140 Potassium 4.2 Chloride 111 H Carbon Dioxide 23 Anion Gap 6 BUN 25 H Creatinine 0.71 Est Cr Clr Drug Dosing 67.0 eGFR 84.31 BUN/Creatinine Ratio 35.2 H Glucose 101 H POC Glucose 91 Lactate Calcium 8.3 L Magnesium Total Bilirubin Direct Bilirubin AST ALT Alkaline Phosphatase Troponin I High Sens 109.0 H* D 125.6 H* C-Reactive Protein 14.23 H B-Natriuretic Peptide Total Protein Albumin Globulin Albumin/Globulin Ratio Procalcitonin Urine Color Urine Appearance Urine pH Ur Specific Bern Urine Protein Urine Glucose (UA) Urine Ketones Urine Blood Urine Nitrite Urine Bilirubin Urine Urobilinogen Ur Leukocyte Esterase Urine RBC Urine WBC Ur Epithelial Cells Calcium Oxalate Crystal Urine Bacteria Urine Comment Nasal Screen MRSA (PCR) Adenovirus (PCR) B. pertussis DNA (PCR) B.parapertussis DNA PCR C. pneumoniae DNA (PCR) Coronavirus OC43 (PCR) Coronavirus HKU1 (PCR) Coronavirus 229E (PCR) SARS-CoV-2 (PCR) Coronavirus NL63 (PCR) Human Metapneumovir PCR Influenza Type A (PCR) Influenza Type B (PCR) M. pneumoniae (PCR) Parainfluenza 1 (PCR) Parainfluenza 2 (PCR) Parainfluenza 3 (PCR) Parainfluenza 4 (PCR) RSV (PCR) Entero/Rhino (PCR) 12/21/24 12/21/24 11:23 14:17 WBC 7.58 RBC 3.41 L Hgb 10.9 L Hct 34.5 L MCV 101.2 H MCH 32.0 MCHC 31.6 L RDW Std Deviation 50.0 H RDW Coeff of Guilherme 13.5 Plt Count 141 MPV 10.2 Immature Gran % (Auto) Neut % (Auto) Lymph % (Auto) Mckenzie % (Auto) Eos % (Auto) Baso % (Auto) Neut # (Auto) Lymph # (Auto) Mckenzie # (Auto) Eos # (Auto) Baso # (Auto) Immature Gran # (Auto) Neutrophils % (Manual) Lymphocytes % (Manual) Monocytes % (Manual) Basophils % (Manual) Metamyelocytes % (Man) Neutrophils # (Manual) Total Absolute Neuts Lymphocytes # (Manual) Total Abs Lymphocytes Monocytes # (Manual) Basophils # (Manual) Metamyelocytes # (Man) Large Granular Lymphs # Lrg Granular Lymphs Polychromasia Echinocytes PT INR APTT PTT Ratio VBG pH VBG pCO2 VBG pO2 VBG HCO3 VBG O2 Saturation VBG Base Excess Sodium 142 Potassium 4.2 Chloride 111 H Carbon Dioxide 25 Anion Gap 6 BUN 27 H Creatinine 0.69 Est Cr Clr Drug Dosing 69.0 eGFR 86.06 BUN/Creatinine Ratio 39.1 H Glucose 88 POC Glucose 86 Lactate 1.7 Calcium 8.7 Magnesium Total Bilirubin 0.8 Direct Bilirubin AST 23 ALT 14 Alkaline Phosphatase 59 Troponin I High Sens C-Reactive Protein B-Natriuretic Peptide Total Protein 5.6 L Albumin 3.1 L Globulin 2.5 Albumin/Globulin Ratio 1.2 Procalcitonin Urine Color Urine Appearance Urine pH Ur Specific Bern Urine Protein Urine Glucose (UA) Urine Ketones Urine Blood Urine Nitrite Urine Bilirubin Urine Urobilinogen Ur Leukocyte Esterase Urine RBC Urine WBC Ur Epithelial Cells Calcium Oxalate Crystal Urine Bacteria Urine Comment Nasal Screen MRSA (PCR) Adenovirus (PCR) B. pertussis DNA (PCR) B.parapertussis DNA PCR C. pneumoniae DNA (PCR) Coronavirus OC43 (PCR) Coronavirus HKU1 (PCR) Coronavirus 229E (PCR) SARS-CoV-2 (PCR) Coronavirus NL63 (PCR) Human Metapneumovir PCR Influenza Type A (PCR) Influenza Type B (PCR) M. pneumoniae (PCR) Parainfluenza 1 (PCR) Parainfluenza 2 (PCR) Parainfluenza 3 (PCR) Parainfluenza 4 (PCR) RSV (PCR) Entero/Rhino (PCR) Medications Administered Current Inpatient Medications Acetylcysteine (Acetylcysteine 20% Inhal Soln 4ml Dispensed By Resp.) 5 ml INH Q12R [facility] Stop: 01/20/25 18:59 Albuterol (Albut/Ipratrop 3mg/0.5mg Neb 3 Ml Vial) 3 ml NEB Q6R [facility]; Protocol Stop: 01/20/25 10:34 Last Admin: 12/21/24 13:30 Dose: 3 ml Dextrose (Dextrose 50% 50 Ml Syringe) 25 - 50 ml IV UD PRN; Protocol PRN Reason: Hypoglycemia Protocol Stop: 01/19/25 22:29 Enoxaparin Sodium (Enoxaparin Inj 40 Mg/0.4 Ml Syr) 40 mg SQ Q24H [facility] Stop: 01/19/25 21:59 Last Admin: 12/20/24 23:07 Dose: 40 mg Glucagon (Glucagon For Inj 1 Mg Vial) 1 mg SQ UD PRN; Protocol PRN Reason: Hypoglycemia Protocol Stop: 01/19/25 22:29 Glucose (Glucose 40% Gel 15 Gm Tube) 15 - 30 gm PO UD PRN; Protocol PRN Reason: Hypoglycemia Protocol Stop: 01/19/25 22:29 Glucose (Glucose 10 Tab/Tube) 4 - 8 tab PO UD PRN; Protocol PRN Reason: Hypoglycemia Protocol Stop: 01/19/25 22:29 Guaifenesin (Guaifenesin 600 Mg Tabcr) 1,200 mg PO Q12 [facility] Stop: 01/20/25 08:59 Last Admin: 12/21/24 10:10 Dose: 1,200 mg Cefepime HCl (Maxipime 2000mg) 2,000 mg in 20 mls @ 5 mls/min IV Q8H [facility]; Protocol Stop: 12/25/24 20:59 Last Admin: 12/21/24 12:58 Dose: 5 mls/min Methylprednisolone 20 mg/ (Syringe) 0.32 mls @ 1.5 mls/min IV Q8H [facility] Stop: 01/20/25 11:14 Last Admin: 12/21/24 12:22 Dose: 1.5 mls/min Metronidazole (Flagyl) 500 mg in 100 mls @ 100 mls/hr IV Q8H [facility]; Protocol Stop: 12/26/24 11:14 Last Infusion: 12/21/24 12:57 Dose: Infused Insulin Aspart (Insulin Aspart Per Unit Charge) 0 units SC Q6 [facility] Stop: 01/19/25 22:16 Last Admin: 12/21/24 12:24 Dose: Not Given Midodrine (Midodrine Hcl 2.5 Mg Tab) 5 mg PO TID@0800,1200,1700 [facility] Stop: 01/20/25 11:59 Last Admin: 12/21/24 12:29 Dose: 5 mg Miscellaneous (Carbohydrates For Hypoglycemia ) 15 - 30 gm PO UD PRN PRN Reason: Hypoglycemia Treatment Stop: 01/19/25 22:29 Ondansetron HCl (Ondansetron Inj 2 Mg/Ml 2 Ml Vial) 4 mg IV Q6H PRN PRN Reason: Nausea Stop: 01/19/25 22:16 Last Admin: 12/21/24 08:08 Dose: 4 mg Sodium Chloride (Sodium Chlor 7% 4 Ml Neb) 4 ml NEB BIDR [facility] Stop: 01/20/25 09:59 Last Admin: 12/21/24 09:39 Dose: 4 ml PG Care Time/CCT Total # of Minutes Spent Total Time Spent with Patient: Total time spent is greater than 50% in coordination of care (as documented) at patient's floor/unit and/or counseling patient: Coding Level of Care Code 29079 SUB INP/OBS CARE 2/35MIN Diagnoses Respiratory failure J96.90 Acute respiratory acidosis J96.02 AMS (altered mental status) R41.82 Pneumonia J18.9
[2024-12-21] MEDS ORDERED: ACETAMINOPHEN 10MG/ML Custom 1,000 MG in EMPTY BAG 0 ML IV PRN (18:07)
[2024-12-21] MEDS: ACETAMINOPHEN 1,000 MG/100 ML VIAL IV PRN (18:24)
[2024-12-21] MEDS: ACETYLCYSTEINE 20% INHAL SOLN 4ML ***DISPENSED BY RESP. INH SCH (19:51)
[2024-12-22 07:18] LABS: Hematocrit (blood only) 34.6 % (37.0-47.0); Hemoglobin 10.8 g/dl (12.0-16.0); Mean Corpuscular Hemoglobin 31.4 pg (25.0-34.0); Mean Corpuscular Volume 100.6 fL (80.0-100.0); Platelet Count 135 K/uL (130-400); RDW Standard Deviation 50.1 fL (36.4-46.3); Red Blood Count 3.44 M/uL (4.20-5.40); White Blood Count 9.07 K/ul (4.8-10.8)
[2024-12-22 07:41] LABS: Anion Gap 6.0 (3-11); Bilirubin,Total 0.8 mg/dl (0.2-1.0); Calcium 9.1 mg/dl (8.6-10.3); Carbon Dioxide 22.0 mmol/L (21-32); Chloride 111.0 mmol/L (98-107); Potassium 4.1 mmol/L (3.5-5.1); Sodium 139.0 mmol/L (136-145)
[2024-12-22 07:47] LABS: Alanine Aminotransferase 12.0 U/L (7-52); Albumin Globulin Ratio 1.2 (0.9-2); Alkaline Phosphatase 56.0 U/L (34-104); Blood Urea Nitrogen 28.0 mg/dl (6-23); Creatinine Clr Calc Pharmacy 88.1 ml/min; Globulin 2.7 gm/dl (2.5-4.0); Glucose 112.0 mg/dl (70-99(Fasting)); Total Protein 6.0 gm/dl (6.0-8.3)
[2024-12-22] MEDS: MoRPHine SULFATE 2 MG/ML CARP IV PRN (09:16)
[2024-12-22] MEDS: FUROSEMIDE INJ 20 MG/2 ML VIAL IV ONE (12:13)
--- NOTE | 2024-12-22 12:36 | Hospitalist Progress Note ---
Date of Service December 22, 2024 Assessment & Plan (1) Respiratory failure: (2) Acute respiratory acidosis: (3) AMS (altered mental status): (4) Pneumonia: Plan Gloria Romero is a 84 yo woman with PMH of dementia, bipolar depression, [facility]s [facility] and is wheelchair bound her sister is a retired pscyhiatrist. daughter noticed she been having coughing spell and wheezing since last week, on 12/20/2024, presented to our hospital with hypoxic, septic shock, CT chest show pneumonia 12/21, 10-15 liter of oxygen, started on vapoteherm. flagyl added for aspiration coverage, 12/22/ on 60 liter oxygen; straight NPO, lactate improved. low dose IV lasix. 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 Unclear baseline with her history of dementia, although it sounds like it is certainly far better than this. As I described delirium to the patient's daughter she recognized the syndrome and remembered that the patient had it previously about 7 years ago. Discussed the natural history of deliriums and how they often outlast the inciting illnesses #dementia Home meds will have to be on hold until she is alert enough to safely swallow - she's can no longer remember what she has for breakfast however, patient still highly verbal and interactive with daughter code status; intubation okay; no CPR wheelchair dependence bipolar depression #DVT prophylaxis Lovenox #elevated troponin appears to be consistent with demand ischemia given her hypoxia and hypotensioncontinue to trend until peak. Echocardiogram in the morning. family update, daughter updated in person on 12/21/2024, sister updated on 12/21/2024 5pm Admission and Anticipated Discharge Date Admission Date: December 20, 2024 Subjective she is now on 60 liter, her BP since improved to 150 significant respiratory distress; low dose morphine her sister, who is a retired psychiatrist, agreeable for ventilator if she's decompensated, but no CPR c/w cefepime, flagyl, straight NPo given AMS low dose IV lasix 20mg Physical Exam Physical Exam: VITALS: Reviewed. WEIGHT/BMI reviewed. GEN: chronically ill appearing; PSYCH: no hallucination HEENT -Head: NC/AT; -Ears: External ears are normal. Normal TMs. -Mouth and throat: MMM. Normal gums, muc ernesto, palate,. Good dentition. NECK: no JVD noted CV: RRR, no m/r/g. LUNGS: congested breath sound; on 60 liter ABD: Soft, NT/ND, NBS, no masses or organomegaly. MSK: No deformities, Normal gait. EXT: No clubbing, cyanosis, or edema. NEURO: only oriented to herself; follow simple command Results & Data Results & Data Vital Signs (Past 12 Hours) Vital Signs Temp Pulse Resp BP Pulse Ox O2 Del Method O2 Flow Rate 12/22/24 11:28 37 C 85 24 150/96 H 100 High Flow Nasal Cannula 60 12/22/24 10:43 82 18 100 High Flow Nasal Cannula 60 12/22/24 08:19 36.6 C 76 23 136/73 99 High Flow Nasal Cannula 10 12/22/24 07:45 High Flow Nasal Cannula 40 12/22/24 06:17 77 31 H 94 High Flow Nasal Cannula 40 12/22/24 05:49 78 32 H 89 L Oxymask 15 12/22/24 03:11 37.0 C 82 24 101/55 L 94 Oxymask 10 12/22/24 01:31 77 25 H 93 Oxymask 11 FiO2 12/22/24 11:28 90 12/22/24 10:43 90 12/22/24 08:19 12/22/24 07:45 100 12/22/24 06:17 100 12/22/24 05:49 12/22/24 03:11 12/22/24 01:31 Laboratory Results Laboratory Results - last 72 hr 12/20/24 12/20/24 12/20/24 16:03 16:41 17:05 WBC 2.96 L RBC 3.52 L Hgb 11.0 L Hct 35.2 L MCV 100.0 MCH 31.3 MCHC 31.3 L RDW Std Deviation 49.1 H RDW Coeff of Guilherme 13.3 Plt Count 169 MPV 10.4 Immature Gran % (Auto) 0.3 Neut % (Auto) 73.0 Lymph % (Auto) 15.9 [place] % (Auto) 10.1 Eos % (Auto) 0.0 Baso % (Auto) 0.7 Neut # (Auto) 2.16 Lymph # (Auto) 0.47 L [place] # (Auto) 0.30 Eos # (Auto) 0.00 Baso # (Auto) 0.02 Immature Gran # (Auto) 0.01 Neutrophils % (Manual) Lymphocytes % (Manual) Monocytes % (Manual) Basophils % (Manual) Metamyelocytes % (Man) Neutrophils # (Manual) Total Absolute Neuts Lymphocytes # (Manual) Total Abs Lymphocytes Monocytes # (Manual) Basophils # (Manual) Metamyelocytes # (Man) Large Granular Lymphs # Lrg Granular Lymphs Polychromasia Echinocytes PT 11.4 INR 1.1 APTT 25 PTT Ratio 0.9 VBG pH 7.27 L VBG pCO2 60 H VBG pO2 30 VBG HCO3 28 VBG O2 Saturation < 60.0 VBG Base Excess -0.6 Sodium 142 Potassium 4.1 Chloride 109 H Carbon Dioxide 27 Anion Gap 6 BUN 23 Creatinine 0.73 Est Cr Clr Drug Dosing 65.3 eGFR 81.55 BUN/Creatinine Ratio 31.5 H Glucose 109 H POC Glucose Lactate 2.1 H* Calcium 8.1 L Magnesium 1.8 Total Bilirubin 0.8 Direct Bilirubin TNP AST 19 ALT 10 Alkaline Phosphatase 59 Troponin I High Sens 37.9 H C-Reactive Protein B-Natriuretic Peptide Total Protein 5.5 L Albumin 3.0 L Globulin Albumin/Globulin Ratio Procalcitonin 2.10 H Urine Color Urine Appearance Urine pH Ur Specific [place] Urine Protein Urine Glucose (UA) Urine Ketones Urine Blood Urine Nitrite Urine Bilirubin Urine Urobilinogen Ur Leukocyte Esterase Urine RBC Urine WBC Ur Epithelial Cells Calcium Oxalate Crystal Urine Bacteria Urine Comment Nasal Screen MRSA (PCR) Adenovirus (PCR) Not Detected B. pertussis DNA (PCR) Not Detected B.parapertussis DNA PCR Not Detected C. pneumoniae DNA (PCR) Not Detected Coronavirus OC43 (PCR) Not Detected Coronavirus HKU1 (PCR) Not Detected Coronavirus 229E (PCR) Not Detected SARS-CoV-2 (PCR) Not Detected Coronavirus NL63 (PCR) Not Detected Human Metapneumovir PCR Not Detected Influenza Type A (PCR) Not Detected Influenza Type B (PCR) Not Detected M. pneumoniae (PCR) Not Detected Parainfluenza 1 (PCR) Not Detected Parainfluenza 2 (PCR) Not Detected Parainfluenza 3 (PCR) Not Detected Parainfluenza 4 (PCR) Not Detected RSV (PCR) Not Detected Entero/Rhino (PCR) Not Detected 12/20/24 12/20/24 12/20/24 17:07 17:33 17:50 WBC RBC Hgb Hct MCV MCH MCHC RDW Std Deviation RDW Coeff of Guilherme Plt Count MPV Immature Gran % (Auto) Neut % (Auto) Lymph % (Auto) [place] % (Auto) Eos % (Auto) Baso % (Auto) Neut # (Auto) Lymph # (Auto) [place] # (Auto) Eos # (Auto) Baso # (Auto) Immature Gran # (Auto) Neutrophils % (Manual) Lymphocytes % (Manual) Monocytes % (Manual) Basophils % (Manual) Metamyelocytes % (Man) Neutrophils # (Manual) Total Absolute Neuts Lymphocytes # (Manual) Total Abs Lymphocytes Monocytes # (Manual) Basophils # (Manual) Metamyelocytes # (Man) Large Granular Lymphs # Lrg Granular Lymphs Polychromasia Echinocytes PT INR APTT PTT Ratio VBG pH VBG pCO2 VBG pO2 VBG HCO3 VBG O2 Saturation VBG Base Excess Sodium Potassium Chloride Carbon Dioxide Anion Gap BUN Creatinine Est Cr Clr Drug Dosing eGFR BUN/Creatinine Ratio Glucose POC Glucose Lactate Calcium Magnesium Total Bilirubin Direct Bilirubin 0.3 H AST ALT Alkaline Phosphatase Troponin I High Sens 67.3 H* D C-Reactive Protein B-Natriuretic Peptide Total Protein Albumin Globulin Albumin/Globulin Ratio Procalcitonin Urine Color Yellow Urine Appearance Cloudy A Urine pH 5.5 Ur Specific [place] 1.025 Urine Protein Trace H Urine Glucose (UA) Negative Urine Ketones Negative Urine Blood Negative Urine Nitrite Negative Urine Bilirubin Negative Urine Urobilinogen Negative Ur Leukocyte Esterase 1+ H Urine RBC 0-2 Urine WBC 21-50 H Ur Epithelial Cells 11-20 H Calcium Oxalate Crystal Present A Urine Bacteria 3+ H Urine Comment Nasal Screen MRSA (PCR) Adenovirus (PCR) B. pertussis DNA (PCR) B.parapertussis DNA PCR C. pneumoniae DNA (PCR) Coronavirus OC43 (PCR) Coronavirus HKU1 (PCR) Coronavirus 229E (PCR) SARS-CoV-2 (PCR) Coronavirus NL63 (PCR) Human Metapneumovir PCR Influenza Type A (PCR) Influenza Type B (PCR) M. pneumoniae (PCR) Parainfluenza 1 (PCR) Parainfluenza 2 (PCR) Parainfluenza 3 (PCR) Parainfluenza 4 (PCR) RSV (PCR) Entero/Rhino (PCR) 12/20/24 12/20/24 12/20/24 19:44 21:29 22:23 WBC RBC Hgb Hct MCV MCH MCHC RDW Std Deviation RDW Coeff of Guilherme Plt Count MPV Immature Gran % (Auto) Neut % (Auto) Lymph % (Auto) [place] % (Auto) Eos % (Auto) Baso % (Auto) Neut # (Auto) Lymph # (Auto) [place] # (Auto) Eos # (Auto) Baso # (Auto) Immature Gran # (Auto) Neutrophils % (Manual) Lymphocytes % (Manual) Monocytes % (Manual) Basophils % (Manual) Metamyelocytes % (Man) Neutrophils # (Manual) Total Absolute Neuts Lymphocytes # (Manual) Total Abs Lymphocytes Monocytes # (Manual) Basophils # (Manual) Metamyelocytes # (Man) Large Granular Lymphs # Lrg Granular Lymphs Polychromasia Echinocytes PT INR APTT PTT Ratio VBG pH 7.25 L VBG pCO2 61 H VBG pO2 < 20 VBG HCO3 27 VBG O2 Saturation < 60.0 VBG Base Excess -1.7 Sodium Potassium Chloride Carbon Dioxide Anion Gap BUN Creatinine Est Cr Clr Drug Dosing eGFR BUN/Creatinine Ratio Glucose POC Glucose 97 Lactate 3.2 H* Calcium Magnesium Total Bilirubin Direct Bilirubin AST ALT Alkaline Phosphatase Troponin I High Sens C-Reactive Protein 7.93 H B-Natriuretic Peptide 444 H Total Protein Albumin Globulin Albumin/Globulin Ratio Procalcitonin Urine Color Urine Appearance Urine pH Ur Specific [place] Urine Protein Urine Glucose (UA) Urine Ketones Urine Blood Urine Nitrite Urine Bilirubin Urine Urobilinogen Ur Leukocyte Esterase Urine RBC Urine WBC Ur Epithelial Cells Calcium Oxalate Crystal Urine Bacteria Urine Comment Nasal Screen MRSA (PCR) Negative Adenovirus (PCR) B. pertussis DNA (PCR) B.parapertussis DNA PCR C. pneumoniae DNA (PCR) Coronavirus OC43 (PCR) Coronavirus HKU1 (PCR) Coronavirus 229E (PCR) SARS-CoV-2 (PCR) Coronavirus NL63 (PCR) Human Metapneumovir PCR Influenza Type A (PCR) Influenza Type B (PCR) M. pneumoniae (PCR) Parainfluenza 1 (PCR) Parainfluenza 2 (PCR) Parainfluenza 3 (PCR) Parainfluenza 4 (PCR) RSV (PCR) Entero/Rhino (PCR) 12/21/24 12/21/24 12/21/24 02:08 06:05 07:41 WBC 4.52 L RBC 3.67 L Hgb 11.5 L Hct 36.8 L MCV 100.3 H MCH 31.3 MCHC 31.3 L RDW Std Deviation 49.8 H RDW Coeff of Guilherme 13.4 Plt Count 150 MPV 9.9 Immature Gran % (Auto) Neut % (Auto) Lymph % (Auto) [place] % (Auto) Eos % (Auto) Baso % (Auto) Neut # (Auto) Lymph # (Auto) [place] # (Auto) Eos # (Auto) Baso # (Auto) Immature Gran # (Auto) Neutrophils % (Manual) 51 Lymphocytes % (Manual) 19 Monocytes % (Manual) 7 Basophils % (Manual) 2 Metamyelocytes % (Man) 2 Neutrophils # (Manual) 2.31 Total Absolute Neuts 2.31 Lymphocytes # (Manual) 0.86 L Total Abs Lymphocytes 1.72 Monocytes # (Manual) 0.32 Basophils # (Manual) 0.09 Metamyelocytes # (Man) 0.09 H Large Granular Lymphs 19 # Lrg Granular Lymphs 0.86 Polychromasia 1+ Echinocytes 1+ PT INR APTT PTT Ratio VBG pH VBG pCO2 VBG pO2 VBG HCO3 VBG O2 Saturation VBG Base Excess Sodium 140 Potassium 4.2 Chloride 111 H Carbon Dioxide 23 Anion Gap 6 BUN 25 H Creatinine 0.71 Est Cr Clr Drug Dosing 67.0 eGFR 84.31 BUN/Creatinine Ratio 35.2 H Glucose 101 H POC Glucose 91 Lactate Calcium 8.3 L Magnesium Total Bilirubin Direct Bilirubin AST ALT Alkaline Phosphatase Troponin I High Sens 109.0 H* D 125.6 H* C-Reactive Protein 14.23 H B-Natriuretic Peptide Total Protein Albumin Globulin Albumin/Globulin Ratio Procalcitonin Urine Color Urine Appearance Urine pH Ur Specific [place] Urine Protein Urine Glucose (UA) Urine Ketones Urine Blood Urine Nitrite Urine Bilirubin Urine Urobilinogen Ur Leukocyte Esterase Urine RBC Urine WBC Ur Epithelial Cells Calcium Oxalate Crystal Urine Bacteria Urine Comment Nasal Screen MRSA (PCR) Adenovirus (PCR) B. pertussis DNA (PCR) B.parapertussis DNA PCR C. pneumoniae DNA (PCR) Coronavirus OC43 (PCR) Coronavirus HKU1 (PCR) Coronavirus 229E (PCR) SARS-CoV-2 (PCR) Coronavirus NL63 (PCR) Human Metapneumovir PCR Influenza Type A (PCR) Influenza Type B (PCR) M. pneumoniae (PCR) Parainfluenza 1 (PCR) Parainfluenza 2 (PCR) Parainfluenza 3 (PCR) Parainfluenza 4 (PCR) RSV (PCR) Entero/Rhino (PCR) 12/21/24 12/21/24 12/21/24 11:23 14:17 18:26 WBC 7.58 RBC 3.41 L Hgb 10.9 L Hct 34.5 L MCV 101.2 H MCH 32.0 MCHC 31.6 L RDW Std Deviation 50.0 H RDW Coeff of Guilherme 13.5 Plt Count 141 MPV 10.2 Immature Gran % (Auto) Neut % (Auto) Lymph % (Auto) [place] % (Auto) Eos % (Auto) Baso % (Auto) Neut # (Auto) Lymph # (Auto) [place] # (Auto) Eos # (Auto) Baso # (Auto) Immature Gran # (Auto) Neutrophils % (Manual) Lymphocytes % (Manual) Monocytes % (Manual) Basophils % (Manual) Metamyelocytes % (Man) Neutrophils # (Manual) Total Absolute Neuts Lymphocytes # (Manual) Total Abs Lymphocytes Monocytes # (Manual) Basophils # (Manual) Metamyelocytes # (Man) Large Granular Lymphs # Lrg Granular Lymphs Polychromasia Echinocytes PT INR APTT PTT Ratio VBG pH VBG pCO2 VBG pO2 VBG HCO3 VBG O2 Saturation VBG Base Excess Sodium 142 Potassium 4.2 Chloride 111 H Carbon Dioxide 25 Anion Gap 6 BUN 27 H Creatinine 0.69 Est Cr Clr Drug Dosing 69.0 eGFR 86.06 BUN/Creatinine Ratio 39.1 H Glucose 88 POC Glucose 86 89 Lactate 1.7 Calcium 8.7 Magnesium Total Bilirubin 0.8 Direct Bilirubin AST 23 ALT 14 Alkaline Phosphatase 59 Troponin I High Sens 81.1 H* D C-Reactive Protein B-Natriuretic Peptide Total Protein 5.6 L Albumin 3.1 L Globulin 2.5 Albumin/Globulin Ratio 1.2 Procalcitonin Urine Color Urine Appearance Urine pH Ur Specific [place] Urine Protein Urine Glucose (UA) Urine Ketones Urine Blood Urine Nitrite Urine Bilirubin Urine Urobilinogen Ur Leukocyte Esterase Urine RBC Urine WBC Ur Epithelial Cells Calcium Oxalate Crystal Urine Bacteria Urine Comment Nasal Screen MRSA (PCR) Adenovirus (PCR) B. pertussis DNA (PCR) B.parapertussis DNA PCR C. pneumoniae DNA (PCR) Coronavirus OC43 (PCR) Coronavirus HKU1 (PCR) Coronavirus 229E (PCR) SARS-CoV-2 (PCR) Coronavirus NL63 (PCR) Human Metapneumovir PCR Influenza Type A (PCR) Influenza Type B (PCR) M. pneumoniae (PCR) Parainfluenza 1 (PCR) Parainfluenza 2 (PCR) Parainfluenza 3 (PCR) Parainfluenza 4 (PCR) RSV (PCR) Entero/Rhino (PCR) 12/21/24 12/22/24 12/22/24 20:30 00:08 06:14 WBC RBC Hgb Hct MCV MCH MCHC RDW Std Deviation RDW Coeff of Guilherme Plt Count MPV Immature Gran % (Auto) Neut % (Auto) Lymph % (Auto) [place] % (Auto) Eos % (Auto) Baso % (Auto) Neut # (Auto) Lymph # (Auto) [place] # (Auto) Eos # (Auto) Baso # (Auto) Immature Gran # (Auto) Neutrophils % (Manual) Lymphocytes % (Manual) Monocytes % (Manual) Basophils % (Manual) Metamyelocytes % (Man) Neutrophils # (Manual) Total Absolute Neuts Lymphocytes # (Manual) Total Abs Lymphocytes Monocytes # (Manual) Basophils # (Manual) Metamyelocytes # (Man) Large Granular Lymphs # Lrg Granular Lymphs Polychromasia Echinocytes PT INR APTT PTT Ratio VBG pH VBG pCO2 VBG pO2 VBG HCO3 VBG O2 Saturation VBG Base Excess Sodium Potassium Chloride Carbon Dioxide Anion Gap BUN Creatinine Est Cr Clr Drug Dosing eGFR BUN/Creatinine Ratio Glucose POC Glucose 100 H 99 Lactate Calcium Magnesium Total Bilirubin Direct Bilirubin AST ALT Alkaline Phosphatase Troponin I High Sens 59.5 H* D C-Reactive Protein B-Natriuretic Peptide Total Protein Albumin Globulin Albumin/Globulin Ratio Procalcitonin Urine Color Urine Appearance Urine pH Ur Specific [place] Urine Protein Urine Glucose (UA) Urine Ketones Urine Blood Urine Nitrite Urine Bilirubin Urine Urobilinogen Ur Leukocyte Esterase Urine RBC Urine WBC Ur Epithelial Cells Calcium Oxalate Crystal Urine Bacteria Urine Comment Nasal Screen MRSA (PCR) Adenovirus (PCR) B. pertussis DNA (PCR) B.parapertussis DNA PCR C. pneumoniae DNA (PCR) Coronavirus OC43 (PCR) Coronavirus HKU1 (PCR) Coronavirus 229E (PCR) SARS-CoV-2 (PCR) Coronavirus NL63 (PCR) Human Metapneumovir PCR Influenza Type A (PCR) Influenza Type B (PCR) M. pneumoniae (PCR) Parainfluenza 1 (PCR) Parainfluenza 2 (PCR) Parainfluenza 3 (PCR) Parainfluenza 4 (PCR) RSV (PCR) Entero/Rhino (PCR) 12/22/24 12/22/24 06:54 12:11 WBC 9.07 RBC 3.44 L Hgb 10.8 L Hct 34.6 L MCV 100.6 H MCH 31.4 MCHC 31.2 L RDW Std Deviation 50.1 H RDW Coeff of Guilherme 13.6 Plt Count 135 MPV 10.6 Immature Gran % (Auto) Neut % (Auto) Lymph % (Auto) [place] % (Auto) Eos % (Auto) Baso % (Auto) Neut # (Auto) Lymph # (Auto) [place] # (Auto) Eos # (Auto) Baso # (Auto) Immature Gran # (Auto) Neutrophils % (Manual) Lymphocytes % (Manual) Monocytes % (Manual) Basophils % (Manual) Metamyelocytes % (Man) Neutrophils # (Manual) Total Absolute Neuts Lymphocytes # (Manual) Total Abs Lymphocytes Monocytes # (Manual) Basophils # (Manual) Metamyelocytes # (Man) Large Granular Lymphs # Lrg Granular Lymphs Polychromasia Echinocytes PT INR APTT PTT Ratio VBG pH VBG pCO2 VBG pO2 VBG HCO3 VBG O2 Saturation VBG Base Excess Sodium 139 Potassium 4.1 Chloride 111 H Carbon Dioxide 22 Anion Gap 6 BUN 28 H Creatinine 0.54 L Est Cr Clr Drug Dosing 88.1 eGFR 91.29 BUN/Creatinine Ratio 51.9 H Glucose 112 H POC Glucose 124 H Lactate Calcium 9.1 Magnesium Total Bilirubin 0.8 Direct Bilirubin AST 23 ALT 12 Alkaline Phosphatase 56 Troponin I High Sens 32.1 H D C-Reactive Protein B-Natriuretic Peptide Total Protein 6.0 Albumin 3.3 L Globulin 2.7 Albumin/Globulin Ratio 1.2 Procalcitonin Urine Color Urine Appearance Urine pH Ur Specific [place] Urine Protein Urine Glucose (UA) Urine Ketones Urine Blood Urine Nitrite Urine Bilirubin Urine Urobilinogen Ur Leukocyte Esterase Urine RBC Urine WBC Ur Epithelial Cells Calcium Oxalate Crystal Urine Bacteria Urine Comment Nasal Screen MRSA (PCR) Adenovirus (PCR) B. pertussis DNA (PCR) B.parapertussis DNA PCR C. pneumoniae DNA (PCR) Coronavirus OC43 (PCR) Coronavirus HKU1 (PCR) Coronavirus 229E (PCR) SARS-CoV-2 (PCR) Coronavirus NL63 (PCR) Human Metapneumovir PCR Influenza Type A (PCR) Influenza Type B (PCR) M. pneumoniae (PCR) Parainfluenza 1 (PCR) Parainfluenza 2 (PCR) Parainfluenza 3 (PCR) Parainfluenza 4 (PCR) RSV (PCR) Entero/Rhino (PCR) PG Care Time/CCT Total # of Minutes Spent Total Time Spent with Patient: Total time spent is greater than 50% in coordination of care (as documented) at patient's floor/unit and/or counseling patient: Coding Level of Care Code 85422 SUB INP/OBS CARE 2/35MIN Diagnoses Respiratory failure J96.90 Acute respiratory acidosis J96.02 AMS (altered mental status) R41.82 Pneumonia J18.9 Time Spent (min) 35
--- NOTE | 2024-12-22 14:41 | Ultrasound Report ---
BILATERAL LOWER EXTREMITY VENOUS DOPPLER HISTORY: resp failure, wheelchair bounded COMPARISON STUDY: 10/17/2020 FINDINGS: No evidence of DVT seen in the right lower extremity. Evaluation of the left lower extremity was not completed due to patient refusal to complete the exam. No DVT seen at the left common femoral vein or greater saphenous vein. IMPRESSION: Incomplete evaluation of the left lower extremity. No DVT seen bilaterally. ACT 112: Negative or not required by law. Electronically signed by: Bridger Henry M.D. 12/22/2024 2:40 PM
[2024-12-22] MEDS: FAMOTIDINE 20MG IV PUSH 20 MG/5 ML SYR IV STA (20:51)
[2024-12-22 23:57] LABS: Base Excess VBG 3.1 mEq/L; HCO3 VBG 30 mmol/L; Oxygen Saturation VBG 82.7 %; PCO2 VBG 51 mmHg (38-50); PO2 VBG 50 mmHg; pH VBG 7.37 (7.36-7.41)
[2024-12-23] MEDS: FUROSEMIDE INJ 20 MG/2 ML VIAL IV ONE ×2 (00:20→07:38)
--- NOTE | 2024-12-23 01:50 | XRay Report ---
Exam(s): XR CXR 1 VIEW EXAM: XR Chest, 1 View CLINICAL HISTORY: Reason for exam: hypoxia. TECHNIQUE: Frontal view of the chest. COMPARISON: 12/20/2024. FINDINGS: Lungs: There are bilateral areas of consolidation.. Pleural space: No pleural effusion is seen.. No pneumothorax. Heart: The heart appears top normal in size.. Mediastinum: There is uncoiling of thoracic aorta. . IMPRESSION: Poor inspiratory effort. There are bilateral areas of consolidation which have worsened compared to previous exam Electronically signed by: Kareem Lora MD 12/23/24 01:49 AM
[2024-12-23 05:55] LABS: Hematocrit (blood only) 34.6 % (37.0-47.0); Hemoglobin 11.3 g/dl (12.0-16.0); Mean Corpuscular Hemoglobin 32.4 pg (25.0-34.0); Mean Corpuscular Volume 99.1 fL (80.0-100.0); Platelet Count 151 K/uL (130-400); RDW Standard Deviation 48.6 fL (36.4-46.3); Red Blood Count 3.49 M/uL (4.20-5.40); White Blood Count 11.22 K/ul (4.8-10.8)
[2024-12-23 06:18] LABS: Bilirubin,Total 0.7 mg/dl (0.2-1.0); Calcium 9.4 mg/dl (8.6-10.3); Carbon Dioxide 26.0 mmol/L (21-32)
[2024-12-23 06:24] LABS: Alanine Aminotransferase 11.0 U/L (7-52); Albumin Globulin Ratio 1.0 (0.9-2); Alkaline Phosphatase 60.0 U/L (34-104); Blood Urea Nitrogen 28.0 mg/dl (6-23); Creatinine Clr Calc Pharmacy 79.3 ml/min; Globulin 3.1 gm/dl (2.5-4.0); Glucose 90.0 mg/dl (70-99(Fasting)); Total Protein 6.3 gm/dl (6.0-8.3)
[2024-12-23 06:33] LABS: Anion Gap 7.0 (3-11); Chloride 109.0 mmol/L (98-107); Potassium 3.9 mmol/L (3.5-5.1); Sodium 142.0 mmol/L (136-145)
[2024-12-23] MEDS ORDERED: HALOPERIDOL LACTATE 5 MG/ML 1 ML VIAL IV PRN (07:36)
--- NOTE | 2024-12-23 10:11 | Pulmonary Consultation ---
Date of Consultation December 23, 2024 Assessment & Plan (1) ARDS (adult respiratory distress syndrome): Patient essentially with ARDS. We are transitioning to BiPAP. Suspect aspiration likely culprit for patient's ARDS. Patient is rapidly worsening and may need intubation with mechanical ventilation. Given her dementia status and the severity of her pneumonia, her mortality at this time is high. We are trying to reach out to family to discuss goals of care. Palliative care has been consulted and were discussed with them as well. Otherwise, continue cefepime, Flagyl and azithromycin. Continue to maintain euvolemia and even hypovolemia given ARDS status. (2) AMS (altered mental status): Altered mental status likely related to hypoxemia delirium while in the hospital. (3) Respiratory failure: See comments above. Plan I spent 60 minutes reviewing the electronic medical record/relevant imaging, 30 minutes discussing diagnosis and treatment plan with patient/family, and 30 minutes discussing care plan with ancillary staff such as RT/RN/pharmacist/camp housekeeper/PT/OT/other consulting medical services. CRITICAL CARE TIME I have personally spent 60 minutes of critical care time in the direct management of this patient. This is a life/limb threatening event. This includes time spent evaluating patient, direct bedside care, chart review, placing orders, interpretation of diagnostic studies, discussion with consultants, patient, and family members, as well as other required patient management activities. This time is exclusive of all separately billable procedures, and teaching time and separate from and in addition to any other critical care service time. History of Present Illness Reason for Consultation: Pneumonia and hypoxic respiratory failure Attending Physician: Jennifer Moncada DO History of Present Illness 84-year-old female with a past medical history of dementia, bipolar depression and GERD who is presenting to the hospital due to worsening shortness of breath and hypoxemia. Upon my evaluation the patient is confused and has high flow oxygen along with an oxy mask. She feels very lethargic and says that she feels like "shit". She denies any chest pain. No fevers or chills. Her cough is weak. Chest CT imaging this admission revealed dense consolidations bilaterally, right greater than left. She has a mildly elevated BNP. MRSA screen was - 12/20/2024. Urine cultures 12/20/2024 revealed E. coli. Blood cultures have been negative. Patient currently on vancomycin, azithromycin and cefepime. She has also been started on methylprednisone 40 mg every 8 by the hospitalist service for severe pneumonia. She also has chronic hypotension and is on midodrine. Family was attempted to be contacted by the pulmonary [employer], but the patient's daughter's voicemail was full. Right now the patient is a DNR, but okay for intubation per the CODE STATUS listed. Allergies Allergy/AdvReac Type Severity Reaction Status Date / Time iodine Allergy Unknown ON CENTRE Verified 12/20/24 16:45 CARE MED LIST Penicillins Allergy Unknown ON CENTRE Verified 12/20/24 16:45 CARE MED LIST Sulfa (Sulfonamide Allergy Unknown ON CENTRE Verified 12/20/24 16:45 Antibiotics) CARE MED LIST sulfamethoxazole Allergy Unknown ON CENTRE Verified 12/20/24 16:45 [From Bactrim] CARE MED LIST trimethoprim [From Bactrim] Allergy Unknown ON CENTRE Verified 12/20/24 16:45 CARE MED LIST cephalexin [From Keflex] Allergy ON CENTRE Verified 12/20/24 16:45 CARE MED LIST 131 tositumomab Allergy Unknown ON CENTRE Uncoded 12/20/24 16:45 CARE MED LIST Home Medications Medication Instructions Recorded Confirmed Type acetaminophen 325 mg tablet 650 mg PO Q6 PRN PAIN/FEVER 10/17/20 12/20/24 History (Tylenol) bisacodyl 10 mg rectal suppository 10 mg AR DAILY PRN Constipation 10/17/2012/06 History (Dulcolax (bisacodyl)) escitalopram oxalate 10 mg tablet 10 mg PO HS 10/17/20 12/20/24 History (Lexapro) ferrous sulfate 325 mg (65 mg 325 mg PO QAM 10/17/20 12/20/24 History iron) tablet (FeroSul) gabapentin 100 mg tablet 100 mg PO TIDM 10/17/20 12/20/24 History lidocaine 4 % topical patch 1 patch topical DAILY 10/17/20 12/20/24 History memantine 10 mg tablet 10 mg PO BIDM 10/17/20 12/20/24 History nitroglycerin 0.4 mg sublingual 0.4 mg sublingual UD PRN Chest Pain 10/17/20 12/20/24 History tablet (Nitrostat) pantoprazole 40 mg tablet,delayed 40 mg PO HS 10/17/20 12/20/24 History release Bacillus coagulans 2 billion 1 tab PO BID 12/20/24 12/20/24 History cell-vitamin D3 5 mcg chewable tablet (Probiotic (with Vitamin D3)) acetaminophen 325 mg tablet 650 mg PO TIDM 12/20/24 12/20/24 History (Tylenol) aluminum-mag hydroxide-simethicone 15 ml PO Q6H PRN EPIGASTRIC PAIN 12/20/24 12/20/24 History 400 mg-400 mg-40 mg/5 mL oral susp aspirin 81 mg tablet,delayed 81 mg PO DAILY 12/20/24 12/20/24 History release atropine 1 % eye drops 2 drp buccal Q1H PRN EXCESSIVE 12/20/24 12/20/24 History SECRETIONS bupropion HCl 100 mg tablet 200 mg PO BIDM 12/20/24 12/20/24 History lamotrigine 25 mg tablet (Lamictal) 25 mg PO HS 12/20/24 12/20/24 History morphine concentrate 20 mg/mL oral 10 mg sublingual Q1H PRN Pain 12/20/24 12/20/24 History syringe (FOR ORAL USE ONLY) polyethylene glycol 3350 17 17 g PO DAILY 12/20/24 12/20/24 History gram/dose oral powder (Miralax) promethazine 25 mg/mL injection 25 mg IM Q8H PRN NAUSEA/VOMITING 12/20/24 12/20/24 History solution FOR 14 DAYS risperidone 0.25 mg tablet 0.25 mg PO BIDM 12/20/24 12/20/24 History sennosides 8.6 mg-docusate sodium 1 tab-cap PO BIDM 12/20/24 12/20/24 History 50 mg tablet (Senna Plus) Patient History Social History Smoking Status: Never smoker Hx Substance Use: No Communication Ability: Impaired Current Living Situation: [facility] Current Living Situation Comment: [facility] current occupational status: retired Feels Safe at Home: Yes Assistive Devices: Walker and Wheelchair Assistive Devices Comment: Home O2 (uncertain if continuous) Review of Systems Review of Systems: All systems reviewed & are unremarkable except as noted in HPI & below Physical Exam Physical Exam: Constitutional: Obese. Elderly appearing fatigued. Fragile. Eyes: Pupils are equal round and reactive to light. Conjunctivae are normal. Anicteric sclera. Ears nose, mouth and throat: Mallampati class 2. Normal posterior oropharynx. Uvula is midline. Nasal cannula in place. Perioral cyanosis noted. Neck: Trachea is midline. Visual inspection is normal. Respiratory: Diffuse rhonchi and crackles in the lower lobes. Tachypneic. Cardiovascular: Regular rate and rhythm. No murmurs. No edema. Gastrointestinal: Normal bowel sounds, soft, nontender and nondistended. No hepatosplenomegaly noted. Musculoskeletal: No cyanosis. Patient is able to move all extremities. Strength is 5 out of 5 in the upper and lower extremities. Skin: No rashes, warm dry and intact. Neurologic: No obvious focal neurological deficits seen. Psychiatric: Alert and oriented x1 with a depressed mood. Results & Data Results & Data Vital Signs (Past 12 Hours) Vital Signs Temp Pulse Pulse Resp BP Pulse Ox O2 Del Method 12/23/24 08:00 Oxymask, High Flow Nasal Cannula 12/23/24 07:47 76 24 90 High Flow Nasal Cannula 12/23/24 06:55 36.5 C 77 24 138/77 92 Oxymask, High Flow Nasal Cannula 12/23/24 03:31 78 18 92 Oxymask, High Flow Nasal Cannula 12/23/24 03:28 76 12/23/24 02:43 37.1 C 75 30 H 123/70 91 Oxymask, High Flow Nasal Cannula 12/22/24 23:30 36.6 C 73 26 H 119/75 91 Oxymask, High Flow Nasal Cannula 12/22/24 23:29 80 26 H 89 L Oxymask, High Flow Nasal Cannula O2 Flow Rate FiO2 12/23/24 08:00 75 100 12/23/24 07:47 60 100 12/23/24 06:55 60 99 12/23/24 03:31 60 100 12/23/24 03:28 12/23/24 02:43 60 100 12/22/24 23:30 60 12/22/24 23:29 60 100 PG Care Time/CCT Total # of Minutes Spent Total Time Spent with Patient: Total time spent is greater than 50% in coordination of care (as documented) at patient's floor/unit and/or counseling patient: Coding Level of Care Code 30349 CRITICAL CARE 1ST 30-74M Diagnoses ARDS (adult respiratory distress syndrome) J80 AMS (altered mental status) R41.82 Respiratory failure J96.90
[2024-12-23] MEDS: AZITHROMYCIN 500 MG/255 ML BAG IV SCH (11:41)
--- NOTE | 2024-12-23 12:16 | Hospitalist Progress Note ---
Date of Service December 23, 2024 Assessment & Plan (1) Respiratory failure: (2) Acute respiratory acidosis: (3) AMS (altered mental status): (4) Pneumonia: Plan Gloria Romero is a 84 yo woman with PMH of dementia, bipolar depression, shes live in intermediate and is wheelchair bound her sister is a retired pscyhiatrist. daughter noticed she been having coughing spell and wheezing since last week, on 12/20/2024, presented to our hospital with hypoxic, septic shock, CT chest show pneumonia 12/21, 10-15 liter of oxygen, started on vapoteherm. flagyl added for aspiration coverage, 12/22/ on 60 liter oxygen; straight NPO, lactate improved. low dose IV lasix. #Hypoxic respiratory failure/hypercapnic respiratory failure septic shock she's currently on 60 liter oxygen, physiotherapy vest. 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 Unclear baseline with her history of dementia, although it sounds like it is certainly far better than this. As I described delirium to the patient's daughter she recognized the syndrome and remembered that the patient had it previously about 7 years ago. Discussed the natural history of deliriums and how they often outlast the inciting illnesses #dementia Home meds will have to be on hold until she is alert enough to safely swallow - she's can no longer remember what she has for breakfast however, patient still highly verbal and interactive with daughter code status; intubation okay; no CPR wheelchair dependence bipolar depression #DVT prophylaxis Lovenox #elevated troponin appears to be consistent with demand ischemia given her hypoxia and hypotensioncontinue to trend until peak. Echocardiogram in the morning. family update, daughter updated in person on 12/21/2024, sister updated on 12/21/2024 5pm Admission and Anticipated Discharge Date Admission Date: December 20, 2024 Subjective she still on 60 liter oxygen, she's on cefepime and flagyl pulmoary cognos consultant s/p low dose morphine for comfort s/p low dose lasix, BP stable sister mentioned paradoxic disinhibition with ativan Physical Exam Physical Exam: VITALS: Reviewed. WEIGHT/BMI reviewed. GEN: chronically ill appearing -Head: NC/AT; NECK: Supple, with no masses. CV: RRR, no m/r/g. LUNGS: congested breath sound; on 60 liter oxygen; crackles. ABD: Soft, NT/ND, NBS, no masses or organomegaly. SKIN: Warm, well perfused. No skin rashes or abnormal lesions. MSK: + for edema EXT: No clubbing, cyanosis, or edema. NEURO: able to follow command. slow mentation Results & Data Results & Data Vital Signs (Past 12 Hours) Vital Signs Temp Pulse Pulse Resp BP Pulse Ox O2 Del Method 12/23/24 11:00 37.1 C 71 24 115/73 98 BiPAP 12/23/24 10:10 151/83 H 12/23/24 10:03 71 27 H 94 12/23/24 08:00 Oxymask, High Flow Nasal Cannula 12/23/24 07:47 76 24 90 High Flow Nasal Cannula 12/23/24 07:00 78 12/23/24 06:55 36.5 C 77 24 138/77 92 Oxymask, High Flow Nasal Cannula 12/23/24 03:31 78 18 92 Oxymask, High Flow Nasal Cannula 12/23/24 03:28 76 12/23/24 02:43 37.1 C 75 30 H 123/70 91 Oxymask, High Flow Nasal Cannula O2 Flow Rate FiO2 12/23/24 11:00 12/23/24 10:10 12/23/24 10:03 60 12/23/24 08:00 75 100 12/23/24 07:47 60 100 12/23/24 07:00 12/23/24 06:55 60 99 12/23/24 03:31 60 100 12/23/24 03:28 12/23/24 02:43 60 100 Laboratory Results Laboratory Results - last 72 hr 12/20/24 12/20/24 12/20/24 16:03 16:41 17:05 WBC 2.96 L RBC 3.52 L Hgb 11.0 L Hct 35.2 L MCV 100.0 MCH 31.3 MCHC 31.3 L RDW Std Deviation 49.1 H RDW Coeff of Guilherme 13.3 Plt Count 169 MPV 10.4 Immature Gran % (Auto) 0.3 Neut % (Auto) 73.0 Lymph % (Auto) 15.9 [place] % (Auto) 10.1 Eos % (Auto) 0.0 Baso % (Auto) 0.7 Neut # (Auto) 2.16 Lymph # (Auto) 0.[address] [place] # (Auto) 0.30 Eos # (Auto) 0.00 Baso # (Auto) 0.02 Immature Gran # (Auto) 0.01 Neutrophils % (Manual) Lymphocytes % (Manual) Monocytes % (Manual) Basophils % (Manual) Metamyelocytes % (Man) Neutrophils # (Manual) Total Absolute Neuts Lymphocytes # (Manual) Total Abs Lymphocytes Monocytes # (Manual) Basophils # (Manual) Metamyelocytes # (Man) Large Granular Lymphs # Lrg Granular Lymphs Polychromasia Echinocytes PT 11.4 INR 1.1 APTT 25 PTT Ratio 0.9 VBG pH 7.27 L VBG pCO2 60 H VBG pO2 30 VBG HCO3 28 VBG O2 Saturation < 60.0 VBG Base Excess -0.6 Sodium 142 Potassium 4.1 Chloride 109 H Carbon Dioxide 27 Anion Gap 6 BUN 23 Creatinine 0.73 Est Cr Clr Drug Dosing 65.3 eGFR 81.55 BUN/Creatinine Ratio 31.5 H Glucose 109 H POC Glucose Lactate 2.1 H* Calcium 8.1 L Magnesium 1.8 Total Bilirubin 0.8 Direct Bilirubin TNP AST 19 ALT 10 Alkaline Phosphatase 59 Troponin I High Sens 37.9 H C-Reactive Protein B-Natriuretic Peptide Total Protein 5.5 L Albumin 3.0 L Globulin Albumin/Globulin Ratio Procalcitonin 2.10 H Urine Color Urine Appearance Urine pH Ur Specific [place] Urine Protein Urine Glucose (UA) Urine Ketones Urine Blood Urine Nitrite Urine Bilirubin Urine Urobilinogen Ur Leukocyte Esterase Urine RBC Urine WBC Ur Epithelial Cells Calcium Oxalate Crystal Urine Bacteria Urine Comment Nasal Screen MRSA (PCR) Adenovirus (PCR) Not Detected B. pertussis DNA (PCR) Not Detected B.parapertussis DNA PCR Not Detected C. pneumoniae DNA (PCR) Not Detected Coronavirus OC43 (PCR) Not Detected Coronavirus HKU1 (PCR) Not Detected Coronavirus 229E (PCR) Not Detected SARS-CoV-2 (PCR) Not Detected Coronavirus NL63 (PCR) Not Detected Human Metapneumovir PCR Not Detected Influenza Type A (PCR) Not Detected Influenza Type B (PCR) Not Detected M. pneumoniae (PCR) Not Detected Parainfluenza 1 (PCR) Not Detected Parainfluenza 2 (PCR) Not Detected Parainfluenza 3 (PCR) Not Detected Parainfluenza 4 (PCR) Not Detected RSV (PCR) Not Detected Entero/Rhino (PCR) Not Detected 12/20/24 12/20/24 12/20/24 17:07 17:33 17:50 WBC RBC Hgb Hct MCV MCH MCHC RDW Std Deviation RDW Coeff of Guilherme Plt Count MPV Immature Gran % (Auto) Neut % (Auto) Lymph % (Auto) [place] % (Auto) Eos % (Auto) Baso % (Auto) Neut # (Auto) Lymph # (Auto) [place] # (Auto) Eos # (Auto) Baso # (Auto) Immature Gran # (Auto) Neutrophils % (Manual) Lymphocytes % (Manual) Monocytes % (Manual) Basophils % (Manual) Metamyelocytes % (Man) Neutrophils # (Manual) Total Absolute Neuts Lymphocytes # (Manual) Total Abs Lymphocytes Monocytes # (Manual) Basophils # (Manual) Metamyelocytes # (Man) Large Granular Lymphs # Lrg Granular Lymphs Polychromasia Echinocytes PT INR APTT PTT Ratio VBG pH VBG pCO2 VBG pO2 VBG HCO3 VBG O2 Saturation VBG Base Excess Sodium Potassium Chloride Carbon Dioxide Anion Gap BUN Creatinine Est Cr Clr Drug Dosing eGFR BUN/Creatinine Ratio Glucose POC Glucose Lactate Calcium Magnesium Total Bilirubin Direct Bilirubin 0.3 H AST ALT Alkaline Phosphatase Troponin I High Sens 67.3 H* D C-Reactive Protein B-Natriuretic Peptide Total Protein Albumin Globulin Albumin/Globulin Ratio Procalcitonin Urine Color Yellow Urine Appearance Cloudy A Urine pH 5.5 Ur Specific [place] 1.025 Urine Protein Trace H Urine Glucose (UA) Negative Urine Ketones Negative Urine Blood Negative Urine Nitrite Negative Urine Bilirubin Negative Urine Urobilinogen Negative Ur Leukocyte Esterase 1+ H Urine RBC 0-2 Urine WBC 21-50 H Ur Epithelial Cells 11-20 H Calcium Oxalate Crystal Present A Urine Bacteria 3+ H Urine Comment Nasal Screen MRSA (PCR) Adenovirus (PCR) B. pertussis DNA (PCR) B.parapertussis DNA PCR C. pneumoniae DNA (PCR) Coronavirus OC43 (PCR) Coronavirus HKU1 (PCR) Coronavirus 229E (PCR) SARS-CoV-2 (PCR) Coronavirus NL63 (PCR) Human Metapneumovir PCR Influenza Type A (PCR) Influenza Type B (PCR) M. pneumoniae (PCR) Parainfluenza 1 (PCR) Parainfluenza 2 (PCR) Parainfluenza 3 (PCR) Parainfluenza 4 (PCR) RSV (PCR) Entero/Rhino (PCR) 12/20/24 12/20/24 12/20/24 19:44 21:29 22:23 WBC RBC Hgb Hct MCV MCH MCHC RDW Std Deviation RDW Coeff of Guilherme Plt Count MPV Immature Gran % (Auto) Neut % (Auto) Lymph % (Auto) [place] % (Auto) Eos % (Auto) Baso % (Auto) Neut # (Auto) Lymph # (Auto) [place] # (Auto) Eos # (Auto) Baso # (Auto) Immature Gran # (Auto) Neutrophils % (Manual) Lymphocytes % (Manual) Monocytes % (Manual) Basophils % (Manual) Metamyelocytes % (Man) Neutrophils # (Manual) Total Absolute Neuts Lymphocytes # (Manual) Total Abs Lymphocytes Monocytes # (Manual) Basophils # (Manual) Metamyelocytes # (Man) Large Granular Lymphs # Lrg Granular Lymphs Polychromasia Echinocytes PT INR APTT PTT Ratio VBG pH 7.25 L VBG pCO2 61 H VBG pO2 < 20 VBG HCO3 27 VBG O2 Saturation < 60.0 VBG Base Excess -1.7 Sodium Potassium Chloride Carbon Dioxide Anion Gap BUN Creatinine Est Cr Clr Drug Dosing eGFR BUN/Creatinine Ratio Glucose POC Glucose 97 Lactate 3.2 H* Calcium Magnesium Total Bilirubin Direct Bilirubin AST ALT Alkaline Phosphatase Troponin I High Sens C-Reactive Protein 7.93 H B-Natriuretic Peptide 444 H Total Protein Albumin Globulin Albumin/Globulin Ratio Procalcitonin Urine Color Urine Appearance Urine pH Ur Specific [place] Urine Protein Urine Glucose (UA) Urine Ketones Urine Blood Urine Nitrite Urine Bilirubin Urine Urobilinogen Ur Leukocyte Esterase Urine RBC Urine WBC Ur Epithelial Cells Calcium Oxalate Crystal Urine Bacteria Urine Comment Nasal Screen MRSA (PCR) Negative Adenovirus (PCR) B. pertussis DNA (PCR) B.parapertussis DNA PCR C. pneumoniae DNA (PCR) Coronavirus OC43 (PCR) Coronavirus HKU1 (PCR) Coronavirus 229E (PCR) SARS-CoV-2 (PCR) Coronavirus NL63 (PCR) Human Metapneumovir PCR Influenza Type A (PCR) Influenza Type B (PCR) M. pneumoniae (PCR) Parainfluenza 1 (PCR) Parainfluenza 2 (PCR) Parainfluenza 3 (PCR) Parainfluenza 4 (PCR) RSV (PCR) Entero/Rhino (PCR) 12/21/24 12/21/24 12/21/24 02:08 06:05 07:41 WBC 4.52 L RBC 3.67 L Hgb 11.5 L Hct 36.8 L MCV 100.3 H MCH 31.3 MCHC 31.3 L RDW Std Deviation 49.8 H RDW Coeff of Guilherme 13.4 Plt Count 150 MPV 9.9 Immature Gran % (Auto) Neut % (Auto) Lymph % (Auto) [place] % (Auto) Eos % (Auto) Baso % (Auto) Neut # (Auto) Lymph # (Auto) [place] # (Auto) Eos # (Auto) Baso # (Auto) Immature Gran # (Auto) Neutrophils % (Manual) 51 Lymphocytes % (Manual) 19 Monocytes % (Manual) 7 Basophils % (Manual) 2 Metamyelocytes % (Man) 2 Neutrophils # (Manual) 2.31 Total Absolute Neuts 2.31 Lymphocytes # (Manual) 0.86 L Total Abs Lymphocytes 1.72 Monocytes # (Manual) 0.32 Basophils # (Manual) 0.09 Metamyelocytes # (Man) 0.09 H Large Granular Lymphs 19 # Lrg Granular Lymphs 0.86 Polychromasia 1+ Echinocytes 1+ PT INR APTT PTT Ratio VBG pH VBG pCO2 VBG pO2 VBG HCO3 VBG O2 Saturation VBG Base Excess Sodium 140 Potassium 4.2 Chloride 111 H Carbon Dioxide 23 Anion Gap 6 BUN 25 H Creatinine 0.71 Est Cr Clr Drug Dosing 67.0 eGFR 84.31 BUN/Creatinine Ratio 35.2 H Glucose 101 H POC Glucose 91 Lactate Calcium 8.3 L Magnesium Total Bilirubin Direct Bilirubin AST ALT Alkaline Phosphatase Troponin I High Sens 109.0 H* D 125.6 H* C-Reactive Protein 14.23 H B-Natriuretic Peptide Total Protein Albumin Globulin Albumin/Globulin Ratio Procalcitonin Urine Color Urine Appearance Urine pH Ur Specific [place] Urine Protein Urine Glucose (UA) Urine Ketones Urine Blood Urine Nitrite Urine Bilirubin Urine Urobilinogen Ur Leukocyte Esterase Urine RBC Urine WBC Ur Epithelial Cells Calcium Oxalate Crystal Urine Bacteria Urine Comment Nasal Screen MRSA (PCR) Adenovirus (PCR) B. pertussis DNA (PCR) B.parapertussis DNA PCR C. pneumoniae DNA (PCR) Coronavirus OC43 (PCR) Coronavirus HKU1 (PCR) Coronavirus 229E (PCR) SARS-CoV-2 (PCR) Coronavirus NL63 (PCR) Human Metapneumovir PCR Influenza Type A (PCR) Influenza Type B (PCR) M. pneumoniae (PCR) Parainfluenza 1 (PCR) Parainfluenza 2 (PCR) Parainfluenza 3 (PCR) Parainfluenza 4 (PCR) RSV (PCR) Entero/Rhino (PCR) 12/21/24 12/21/24 12/21/24 11:23 14:17 18:26 WBC 7.58 RBC 3.41 L Hgb 10.9 L Hct 34.5 L MCV 101.2 H MCH 32.0 MCHC 31.6 L RDW Std Deviation 50.0 H RDW Coeff of Guilherme 13.5 Plt Count 141 MPV 10.2 Immature Gran % (Auto) Neut % (Auto) Lymph % (Auto) [place] % (Auto) Eos % (Auto) Baso % (Auto) Neut # (Auto) Lymph # (Auto) [place] # (Auto) Eos # (Auto) Baso # (Auto) Immature Gran # (Auto) Neutrophils % (Manual) Lymphocytes % (Manual) Monocytes % (Manual) Basophils % (Manual) Metamyelocytes % (Man) Neutrophils # (Manual) Total Absolute Neuts Lymphocytes # (Manual) Total Abs Lymphocytes Monocytes # (Manual) Basophils # (Manual) Metamyelocytes # (Man) Large Granular Lymphs # Lrg Granular Lymphs Polychromasia Echinocytes PT INR APTT PTT Ratio VBG pH VBG pCO2 VBG pO2 VBG HCO3 VBG O2 Saturation VBG Base Excess Sodium 142 Potassium 4.2 Chloride 111 H Carbon Dioxide 25 Anion Gap 6 BUN 27 H Creatinine 0.69 Est Cr Clr Drug Dosing 69.0 eGFR 86.06 BUN/Creatinine Ratio 39.1 H Glucose 88 POC Glucose 86 89 Lactate 1.7 Calcium 8.7 Magnesium Total Bilirubin 0.8 Direct Bilirubin AST 23 ALT 14 Alkaline Phosphatase 59 Troponin I High Sens 81.1 H* D C-Reactive Protein B-Natriuretic Peptide Total Protein 5.6 L Albumin 3.1 L Globulin 2.5 Albumin/Globulin Ratio 1.2 Procalcitonin Urine Color Urine Appearance Urine pH Ur Specific [place] Urine Protein Urine Glucose (UA) Urine Ketones Urine Blood Urine Nitrite Urine Bilirubin Urine Urobilinogen Ur Leukocyte Esterase Urine RBC Urine WBC Ur Epithelial Cells Calcium Oxalate Crystal Urine Bacteria Urine Comment Nasal Screen MRSA (PCR) Adenovirus (PCR) B. pertussis DNA (PCR) B.parapertussis DNA PCR C. pneumoniae DNA (PCR) Coronavirus OC43 (PCR) Coronavirus HKU1 (PCR) Coronavirus 229E (PCR) SARS-CoV-2 (PCR) Coronavirus NL63 (PCR) Human Metapneumovir PCR Influenza Type A (PCR) Influenza Type B (PCR) M. pneumoniae (PCR) Parainfluenza 1 (PCR) Parainfluenza 2 (PCR) Parainfluenza 3 (PCR) Parainfluenza 4 (PCR) RSV (PCR) Entero/Rhino (PCR) 12/21/24 12/22/24 12/22/24 20:30 00:08 06:14 WBC RBC Hgb Hct MCV MCH MCHC RDW Std Deviation RDW Coeff of Guilherme Plt Count MPV Immature Gran % (Auto) Neut % (Auto) Lymph % (Auto) [place] % (Auto) Eos % (Auto) Baso % (Auto) Neut # (Auto) Lymph # (Auto) [place] # (Auto) Eos # (Auto) Baso # (Auto) Immature Gran # (Auto) Neutrophils % (Manual) Lymphocytes % (Manual) Monocytes % (Manual) Basophils % (Manual) Metamyelocytes % (Man) Neutrophils # (Manual) Total Absolute Neuts Lymphocytes # (Manual) Total Abs Lymphocytes Monocytes # (Manual) Basophils # (Manual) Metamyelocytes # (Man) Large Granular Lymphs # Lrg Granular Lymphs Polychromasia Echinocytes PT INR APTT PTT Ratio VBG pH VBG pCO2 VBG pO2 VBG HCO3 VBG O2 Saturation VBG Base Excess Sodium Potassium Chloride Carbon Dioxide Anion Gap BUN Creatinine Est Cr Clr Drug Dosing eGFR BUN/Creatinine Ratio Glucose POC Glucose 100 H 99 Lactate Calcium Magnesium Total Bilirubin Direct Bilirubin AST ALT Alkaline Phosphatase Troponin I High Sens 59.5 H* D C-Reactive Protein B-Natriuretic Peptide Total Protein Albumin Globulin Albumin/Globulin Ratio Procalcitonin Urine Color Urine Appearance Urine pH Ur Specific [place] Urine Protein Urine Glucose (UA) Urine Ketones Urine Blood Urine Nitrite Urine Bilirubin Urine Urobilinogen Ur Leukocyte Esterase Urine RBC Urine WBC Ur Epithelial Cells Calcium Oxalate Crystal Urine Bacteria Urine Comment Nasal Screen MRSA (PCR) Adenovirus (PCR) B. pertussis DNA (PCR) B.parapertussis DNA PCR C. pneumoniae DNA (PCR) Coronavirus OC43 (PCR) Coronavirus HKU1 (PCR) Coronavirus 229E (PCR) SARS-CoV-2 (PCR) Coronavirus NL63 (PCR) Human Metapneumovir PCR Influenza Type A (PCR) Influenza Type B (PCR) M. pneumoniae (PCR) Parainfluenza 1 (PCR) Parainfluenza 2 (PCR) Parainfluenza 3 (PCR) Parainfluenza 4 (PCR) RSV (PCR) Entero/Rhino (PCR) 12/22/24 12/22/24 12/22/24 06:54 12:11 17:26 WBC 9.07 RBC 3.44 L Hgb 10.8 L Hct 34.6 L MCV 100.6 H MCH 31.4 MCHC 31.2 L RDW Std Deviation 50.1 H RDW Coeff of Guilherme 13.6 Plt Count 135 MPV 10.6 Immature Gran % (Auto) Neut % (Auto) Lymph % (Auto) [place] % (Auto) Eos % (Auto) Baso % (Auto) Neut # (Auto) Lymph # (Auto) [place] # (Auto) Eos # (Auto) Baso # (Auto) Immature Gran # (Auto) Neutrophils % (Manual) Lymphocytes % (Manual) Monocytes % (Manual) Basophils % (Manual) Metamyelocytes % (Man) Neutrophils # (Manual) Total Absolute Neuts Lymphocytes # (Manual) Total Abs Lymphocytes Monocytes # (Manual) Basophils # (Manual) Metamyelocytes # (Man) Large Granular Lymphs # Lrg Granular Lymphs Polychromasia Echinocytes PT INR APTT PTT Ratio VBG pH VBG pCO2 VBG pO2 VBG HCO3 VBG O2 Saturation VBG Base Excess Sodium 139 Potassium 4.1 Chloride 111 H Carbon Dioxide 22 Anion Gap 6 BUN 28 H Creatinine 0.54 L Est Cr Clr Drug Dosing 88.1 eGFR 91.29 BUN/Creatinine Ratio 51.9 H Glucose 112 H POC Glucose 124 H 100 H Lactate Calcium 9.1 Magnesium Total Bilirubin 0.8 Direct Bilirubin AST 23 ALT 12 Alkaline Phosphatase 56 Troponin I High Sens 32.1 H D C-Reactive Protein B-Natriuretic Peptide Total Protein 6.0 Albumin 3.3 L Globulin 2.7 Albumin/Globulin Ratio 1.2 Procalcitonin Urine Color Urine Appearance Urine pH Ur Specific [place] Urine Protein Urine Glucose (UA) Urine Ketones Urine Blood Urine Nitrite Urine Bilirubin Urine Urobilinogen Ur Leukocyte Esterase Urine RBC Urine WBC Ur Epithelial Cells Calcium Oxalate Crystal Urine Bacteria Urine Comment Nasal Screen MRSA (PCR) Adenovirus (PCR) B. pertussis DNA (PCR) B.parapertussis DNA PCR C. pneumoniae DNA (PCR) Coronavirus OC43 (PCR) Coronavirus HKU1 (PCR) Coronavirus 229E (PCR) SARS-CoV-2 (PCR) Coronavirus NL63 (PCR) Human Metapneumovir PCR Influenza Type A (PCR) Influenza Type B (PCR) M. pneumoniae (PCR) Parainfluenza 1 (PCR) Parainfluenza 2 (PCR) Parainfluenza 3 (PCR) Parainfluenza 4 (PCR) RSV (PCR) Entero/Rhino (PCR) 12/22/24 12/23/24 12/23/24 23:43 00:02 05:38 WBC 11.22 H RBC 3.49 L Hgb 11.3 L Hct 34.6 L MCV 99.1 MCH 32.4 MCHC 32.7 RDW Std Deviation 48.6 H RDW Coeff of Guilherme 13.3 Plt Count 151 MPV 10.6 Immature Gran % (Auto) Neut % (Auto) Lymph % (Auto) [place] % (Auto) Eos % (Auto) Baso % (Auto) Neut # (Auto) Lymph # (Auto) [place] # (Auto) Eos # (Auto) Baso # (Auto) Immature Gran # (Auto) Neutrophils % (Manual) Lymphocytes % (Manual) Monocytes % (Manual) Basophils % (Manual) Metamyelocytes % (Man) Neutrophils # (Manual) Total Absolute Neuts Lymphocytes # (Manual) Total Abs Lymphocytes Monocytes # (Manual) Basophils # (Manual) Metamyelocytes # (Man) Large Granular Lymphs # Lrg Granular Lymphs Polychromasia Echinocytes PT INR APTT PTT Ratio VBG pH 7.37 VBG pCO2 51 H VBG pO2 50 VBG HCO3 30 VBG O2 Saturation 82.7 VBG Base Excess 3.1 Sodium 142 Potassium 3.9 Chloride 109 H Carbon Dioxide 26 Anion Gap 7 BUN 28 H Creatinine 0.60 Est Cr Clr Drug Dosing 79.3 eGFR 89.01 BUN/Creatinine Ratio 46.7 H Glucose 90 POC Glucose 105 H Lactate Calcium 9.4 Magnesium Total Bilirubin 0.7 Direct Bilirubin AST 18 ALT 11 Alkaline Phosphatase 60 Troponin I High Sens C-Reactive Protein B-Natriuretic Peptide Total Protein 6.3 Albumin 3.2 L Globulin 3.1 Albumin/Globulin Ratio 1.0 Procalcitonin Urine Color Urine Appearance Urine pH Ur Specific [place] Urine Protein Urine Glucose (UA) Urine Ketones Urine Blood Urine Nitrite Urine Bilirubin Urine Urobilinogen Ur Leukocyte Esterase Urine RBC Urine WBC Ur Epithelial Cells Calcium Oxalate Crystal Urine Bacteria Urine Comment Nasal Screen MRSA (PCR) Adenovirus (PCR) B. pertussis DNA (PCR) B.parapertussis DNA PCR C. pneumoniae DNA (PCR) Coronavirus OC43 (PCR) Coronavirus HKU1 (PCR) Coronavirus 229E (PCR) SARS-CoV-2 (PCR) Coronavirus NL63 (PCR) Human Metapneumovir PCR Influenza Type A (PCR) Influenza Type B (PCR) M. pneumoniae (PCR) Parainfluenza 1 (PCR) Parainfluenza 2 (PCR) Parainfluenza 3 (PCR) Parainfluenza 4 (PCR) RSV (PCR) Entero/Rhino (PCR) 12/23/24 12/23/24 05:41 11:49 WBC RBC Hgb Hct MCV MCH MCHC RDW Std Deviation RDW Coeff of Guilherme Plt Count MPV Immature Gran % (Auto) Neut % (Auto) Lymph % (Auto) [place] % (Auto) Eos % (Auto) Baso % (Auto) Neut # (Auto) Lymph # (Auto) [place] # (Auto) Eos # (Auto) Baso # (Auto) Immature Gran # (Auto) Neutrophils % (Manual) Lymphocytes % (Manual) Monocytes % (Manual) Basophils % (Manual) Metamyelocytes % (Man) Neutrophils # (Manual) Total Absolute Neuts Lymphocytes # (Manual) Total Abs Lymphocytes Monocytes # (Manual) Basophils # (Manual) Metamyelocytes # (Man) Large Granular Lymphs # Lrg Granular Lymphs Polychromasia Echinocytes PT INR APTT PTT Ratio VBG pH VBG pCO2 VBG pO2 VBG HCO3 VBG O2 Saturation VBG Base Excess Sodium Potassium Chloride Carbon Dioxide Anion Gap BUN Creatinine Est Cr Clr Drug Dosing eGFR BUN/Creatinine Ratio Glucose POC Glucose 96 Lactate 1.1 Calcium Magnesium Total Bilirubin Direct Bilirubin AST ALT Alkaline Phosphatase Troponin I High Sens C-Reactive Protein B-Natriuretic Peptide Total Protein Albumin Globulin Albumin/Globulin Ratio Procalcitonin Urine Color Urine Appearance Urine pH Ur Specific [place] Urine Protein Urine Glucose (UA) Urine Ketones Urine Blood Urine Nitrite Urine Bilirubin Urine Urobilinogen Ur Leukocyte Esterase Urine RBC Urine WBC Ur Epithelial Cells Calcium Oxalate Crystal Urine Bacteria Urine Comment Nasal Screen MRSA (PCR) Adenovirus (PCR) B. pertussis DNA (PCR) B.parapertussis DNA PCR C. pneumoniae DNA (PCR) Coronavirus OC43 (PCR) Coronavirus HKU1 (PCR) Coronavirus 229E (PCR) SARS-CoV-2 (PCR) Coronavirus NL63 (PCR) Human Metapneumovir PCR Influenza Type A (PCR) Influenza Type B (PCR) M. pneumoniae (PCR) Parainfluenza 1 (PCR) Parainfluenza 2 (PCR) Parainfluenza 3 (PCR) Parainfluenza 4 (PCR) RSV (PCR) Entero/Rhino (PCR) PG Care Time/CCT Total # of Minutes Spent Total Time Spent with Patient: Total time spent is greater than 50% in coordination of care (as documented) at patient's floor/unit and/or counseling patient: Coding Level of Care Code 10173 SUB INP/OBS CARE 1/25MIN Diagnoses Respiratory failure J96.90 Acute respiratory acidosis J96.02 AMS (altered mental status) R41.82 Pneumonia J18.9 Time Spent (min) 25
[2024-12-23 13:30] LABS: iSTAT Art Bld Gas Base Excess 4.0 meg/L (-9-1.8); iSTAT Art Bld Gas pCO2 Correct 45 mmHg (35-46); iSTAT Art Bld Gas pH Corrected 7.408 (7.35-7.45); iSTAT Arterial Blood Gas pO2 C 69
[2024-12-23] MEDS: HALOPERIDOL LACTATE 5 MG/ML 1 ML VIAL IV PRN (23:55)
[2024-12-24 06:41] LABS: Hematocrit (blood only) 36.1 % (37.0-47.0); Hemoglobin 11.4 g/dl (12.0-16.0); Mean Corpuscular Hemoglobin 31.6 pg (25.0-34.0); Mean Corpuscular Volume 100.0 fL (80.0-100.0); Platelet Count 170 K/uL (130-400); RDW Standard Deviation 49.2 fL (36.4-46.3); Red Blood Count 3.61 M/uL (4.20-5.40); White Blood Count 10.70 K/ul (4.8-10.8)
[2024-12-24 07:03] LABS: Alanine Aminotransferase 10.0 U/L (7-52); Albumin Globulin Ratio 1.1 (0.9-2); Alkaline Phosphatase 57.0 U/L (34-104); Anion Gap 8.0 (3-11); Bilirubin,Total 0.6 mg/dl (0.2-1.0); Blood Urea Nitrogen 39.0 mg/dl (6-23); Calcium 9.2 mg/dl (8.6-10.3); Carbon Dioxide 29.0 mmol/L (21-32); Chloride 108.0 mmol/L (98-107); Creatinine Clr Calc Pharmacy 86.4 ml/min; Globulin 2.8 gm/dl (2.5-4.0); Glucose 112.0 mg/dl (70-99(Fasting)); Potassium 3.7 mmol/L (3.5-5.1); Sodium 145.0 mmol/L (136-145); Total Protein 5.9 gm/dl (6.0-8.3)
[2024-12-24] MEDS: FUROSEMIDE 40 MG/4 ML VIAL IV ONE (12:00)
--- NOTE | 2024-12-24 12:03 | Hospitalist Progress Note ---
Date of Service December 24, 2024 Assessment & Plan (1) Respiratory failure: (2) Acute respiratory acidosis: (3) AMS (altered mental status): (4) Pneumonia: Plan Gloria Romero is a 84 yo woman with PMH of dementia, bipolar depression, shes live in jail and is wheelchair bound her sister is a retired pscyhiatrist. daughter noticed she been having coughing spell and wheezing since last week, on 12/20/2024, presented to our hospital with hypoxic, septic shock, CT chest show pneumonia 12/21, 10-15 liter of oxygen, started on vapoteherm. flagyl added for aspiration coverage, 12/22/ on 60 liter oxygen; straight NPO, lactate improved. low dose IV lasix. 12/23/ started on bipap; tolerating, mentation stable, lasix 20mg IV, creatinine stable 12/23; tolreating bipap overnight, BP stable, lasix 40mg IV #Hypoxic respiratory failure/hypercapnic respiratory failure septic shock she's currently on 60 liter oxygen, started on bipap on 12/23. tolerating that . 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 Unclear baseline with her history of dementia, although it sounds like it is certainly far better than this. As I described delirium to the patient's daughter she recognized the syndrome and remembered that the patient had it previously about 7 years ago. Discussed the natural history of deliriums and how they often outlast the inciting illnesses #dementia Home meds will have to be on hold until she is alert enough to safely swallow - she's can no longer remember what she has for breakfast however, patient still highly verbal and interactive with daughter code status; intubation okay; no CPR wheelchair dependence bipolar depression in the past, jail try to take off her risperidone and that result in psychosis she's also on lamital before #DVT prophylaxis Lovenox #elevated troponin appears to be consistent with demand ischemia given her hypoxia and hypotensioncontinue to trend until peak. Echocardiogram in the morning. family update, daughter updated in person on 12/21/2024, sister updated on 12/21/2024 5pm Admission and Anticipated Discharge Date Admission Date: December 20, 2024 Subjective she tolerating bipap overnight. BP stable, daughter at bedside, stated mentation is stable pulmonary following c/w lasix for volume overload still has leg edema Physical Exam Physical Exam: VITALS: Reviewed. WEIGHT/BMI reviewed. GEN: Healthy appearing, well-developed, NAD. -Head: NC/AT; -Eyes: PERRL, EOMI. No discharge or redn ess; -Ears: External ears are normal. Normal TMs. CV: RRR, no m/r/g. LUNGS: CTAB, no w/r/c. congested breath sound on bipap ABD: Soft, NT/ND, NBS, no masses or organomegaly. : N/A MSK: No deformities, Normal gait. EXT: + for edema NEURO: able to follow command, open/close eye spontaneously Results & Data Results & Data Vital Signs (Past 12 Hours) Vital Signs Temp Pulse Pulse Resp BP Pulse Ox O2 Del Method 12/24/24 11:05 36.6 C 74 17 130/96 94 BiPAP 12/24/24 10:17 54 L 12/24/24 07:46 55 L 21 95 12/24/24 07:45 56 L 21 94 BiPAP 12/24/24 07:38 BiPAP 12/24/24 07:05 36.6 C 69 23 167/88 H 99 BiPAP 12/24/24 04:59 36.9 C 55 L 21 133/69 91 CPAP 12/24/24 03:39 70 31 H 96 12/24/24 00:37 66 22 97 Nasal Cannula O2 Flow Rate FiO2 12/24/24 11:05 12/24/24 10:17 12/24/24 07:46 60 12/24/24 07:45 60 12/24/24 07:38 12/24/24 07:05 12/24/24 04:59 12/24/24 03:39 50 12/24/24 00:37 10 Laboratory Results Laboratory Results - last 72 hr 12/21/24 12/21/24 12/21/24 14:17 18:26 20:30 WBC RBC Hgb POC Hgb Hct POC Hct MCV MCH MCHC RDW Std Deviation RDW Coeff of Guilherme Plt Count MPV Specimen Type Sample Site POC pH POC pCO2 POC pO2 POC HCO3 POC Total CO2 POC Base Excess O2 Sat Pulse Oximetry ABG pH (Temp Correct) ABG pCO2 (Temp Corrct POC ABG pO2 at Pt Temp POC ABG O2 Sat Nabor Test VBG pH VBG pCO2 VBG pO2 VBG HCO3 VBG O2 Saturation VBG Base Excess O2 Delivery Device POC FiO2 EPAP IPAP POC Sodium Sodium POC Potassium Potassium Chloride Carbon Dioxide Anion Gap BUN Creatinine Est Cr Clr Drug Dosing eGFR BUN/Creatinine Ratio Glucose POC Glucose 89 Lactate 1.7 Calcium Total Bilirubin AST ALT Alkaline Phosphatase Troponin I High Sens 81.1 H* D 59.5 H* D Total Protein Albumin Globulin Albumin/Globulin Ratio 12/22/24 12/22/24 12/22/24 00:08 06:14 06:54 WBC 9.07 RBC 3.44 L Hgb 10.8 L POC Hgb Hct 34.6 L POC Hct MCV 100.6 H MCH 31.4 MCHC 31.2 L RDW Std Deviation 50.1 H RDW Coeff of Guilherme 13.6 Plt Count 135 MPV 10.6 Specimen Type Sample Site POC pH POC pCO2 POC pO2 POC HCO3 POC Total CO2 POC Base Excess O2 Sat Pulse Oximetry ABG pH (Temp Correct) ABG pCO2 (Temp Corrct POC ABG pO2 at Pt Temp POC ABG O2 Sat Nabor Test VBG pH VBG pCO2 VBG pO2 VBG HCO3 VBG O2 Saturation VBG Base Excess O2 Delivery Device POC FiO2 EPAP IPAP POC Sodium Sodium 139 POC Potassium Potassium 4.1 Chloride 111 H Carbon Dioxide 22 Anion Gap 6 BUN 28 H Creatinine 0.54 L Est Cr Clr Drug Dosing 88.1 eGFR 91.29 BUN/Creatinine Ratio 51.9 H Glucose 112 H POC Glucose 100 H 99 Lactate Calcium 9.1 Total Bilirubin 0.8 AST 23 ALT 12 Alkaline Phosphatase 56 Troponin I High Sens 32.1 H D Total Protein 6.0 Albumin 3.3 L Globulin 2.7 Albumin/Globulin Ratio 1.2 12/22/24 12/22/24 12/22/24 12:11 17:26 23:43 WBC RBC Hgb POC Hgb Hct POC Hct MCV MCH MCHC RDW Std Deviation RDW Coeff of Guilherme Plt Count MPV Specimen Type Sample Site POC pH POC pCO2 POC pO2 POC HCO3 POC Total CO2 POC Base Excess O2 Sat Pulse Oximetry ABG pH (Temp Correct) ABG pCO2 (Temp Corrct POC ABG pO2 at Pt Temp POC ABG O2 Sat Nabor Test VBG pH 7.37 VBG pCO2 51 H VBG pO2 50 VBG HCO3 30 VBG O2 Saturation 82.7 VBG Base Excess 3.1 O2 Delivery Device POC FiO2 EPAP IPAP POC Sodium Sodium POC Potassium Potassium Chloride Carbon Dioxide Anion Gap BUN Creatinine Est Cr Clr Drug Dosing eGFR BUN/Creatinine Ratio Glucose POC Glucose 124 H 100 H Lactate Calcium Total Bilirubin AST ALT Alkaline Phosphatase Troponin I High Sens Total Protein Albumin Globulin Albumin/Globulin Ratio 12/23/24 12/23/24 12/23/24 00:02 05:38 05:41 WBC 11.22 H RBC 3.49 L Hgb 11.3 L POC Hgb Hct 34.6 L POC Hct MCV 99.1 MCH 32.4 MCHC 32.7 RDW Std Deviation 48.6 H RDW Coeff of Guilherme 13.3 Plt Count 151 MPV 10.6 Specimen Type Sample Site POC pH POC pCO2 POC pO2 POC HCO3 POC Total CO2 POC Base Excess O2 Sat Pulse Oximetry ABG pH (Temp Correct) ABG pCO2 (Temp Corrct POC ABG pO2 at Pt Temp POC ABG O2 Sat Nabor Test VBG pH VBG pCO2 VBG pO2 VBG HCO3 VBG O2 Saturation VBG Base Excess O2 Delivery Device POC FiO2 EPAP IPAP POC Sodium Sodium 142 POC Potassium Potassium 3.9 Chloride 109 H Carbon Dioxide 26 Anion Gap 7 BUN 28 H Creatinine 0.60 Est Cr Clr Drug Dosing 79.3 eGFR 89.01 BUN/Creatinine Ratio 46.7 H Glucose 90 POC Glucose 105 H Lactate 1.1 Calcium 9.4 Total Bilirubin 0.7 AST 18 ALT 11 Alkaline Phosphatase 60 Troponin I High Sens Total Protein 6.3 Albumin 3.2 L Globulin 3.1 Albumin/Globulin Ratio 1.0 12/23/24 12/23/24 12/23/24 11:49 13:14 18:04 WBC RBC Hgb POC Hgb 12.2 Hct POC Hct 36 L MCV MCH MCHC RDW Std Deviation RDW Coeff of Guilherme Plt Count MPV Specimen Type Arterial Sample Site R Radial POC pH 7.41 POC pCO2 45 POC pO2 69 L POC HCO3 29 H POC Total CO2 30 POC Base Excess 4.0 H O2 Sat Pulse Oximetry 95 ABG pH (Temp Correct) 7.408 ABG pCO2 (Temp Corrct 45 POC ABG pO2 at Pt Temp 69 POC ABG O2 Sat 94.0 Nabor Test Pass VBG pH VBG pCO2 VBG pO2 VBG HCO3 VBG O2 Saturation VBG Base Excess O2 Delivery Device BIPAP POC FiO2 50 EPAP 5 IPAP 12 POC Sodium 142 Sodium POC Potassium 3.8 Potassium Chloride Carbon Dioxide Anion Gap BUN Creatinine Est Cr Clr Drug Dosing eGFR BUN/Creatinine Ratio Glucose POC Glucose 96 106 H Lactate Calcium Total Bilirubin AST ALT Alkaline Phosphatase Troponin I High Sens Total Protein Albumin Globulin Albumin/Globulin Ratio 12/23/24 12/24/24 12/24/24 23:57 05:43 05:47 WBC 10.70 RBC 3.61 L Hgb 11.4 L POC Hgb Hct 36.1 L POC Hct MCV 100.0 MCH 31.6 MCHC 31.6 L RDW Std Deviation 49.2 H RDW Coeff of Guilherme 13.2 Plt Count 170 MPV 10.8 Specimen Type Sample Site POC pH POC pCO2 POC pO2 POC HCO3 POC Total CO2 POC Base Excess O2 Sat Pulse Oximetry ABG pH (Temp Correct) ABG pCO2 (Temp Corrct POC ABG pO2 at Pt Temp POC ABG O2 Sat Nabor Test VBG pH VBG pCO2 VBG pO2 VBG HCO3 VBG O2 Saturation VBG Base Excess O2 Delivery Device POC FiO2 EPAP IPAP POC Sodium Sodium 145 POC Potassium Potassium 3.7 Chloride 108 H Carbon Dioxide 29 Anion Gap 8 BUN 39 H Creatinine 0.54 L Est Cr Clr Drug Dosing 86.4 eGFR 91.29 BUN/Creatinine Ratio 72.2 H Glucose 112 H POC Glucose 110 H 118 H Lactate Calcium 9.2 Total Bilirubin 0.6 AST 16 ALT 10 Alkaline Phosphatase 57 Troponin I High Sens Total Protein 5.9 L Albumin 3.1 L Globulin 2.8 Albumin/Globulin Ratio 1.1 Medications Administered Current Inpatient Medications Acetylcysteine (Acetylcysteine 20% Inhal Soln 4ml Dispensed By Resp.) 5 ml INH Q12R [facility] Stop: 01/20/25 18:59 Last Admin: 12/24/24 07:43 Dose: 5 ml Albuterol (Albut/Ipratrop 3mg/0.5mg Neb 3 Ml Vial) 3 ml NEB Q6R VIRGILIO; Protocol Stop: 01/20/25 10:34 Last Admin: 12/24/24 07:43 Dose: 3 ml Dextrose (Dextrose 50% 50 Ml Syringe) 25 - 50 ml IV UD PRN; Protocol PRN Reason: Hypoglycemia Protocol Stop: 01/19/25 22:29 Enoxaparin Sodium (Enoxaparin Inj 40 Mg/0.4 Ml Syr) 40 mg SQ Q24H [facility] Stop: 01/19/25 21:59 Last Admin: 12/23/24 21:19 Dose: 40 mg Furosemide (Furosemide 40 Mg/4 Ml Vial) 40 mg IV ONE ONE Stop: 12/24/24 11:59 Glucagon (Glucagon For Inj 1 Mg Vial) 1 mg SQ UD PRN; Protocol PRN Reason: Hypoglycemia Protocol Stop: 01/19/25 22:29 Glucose (Glucose 40% Gel 15 Gm Tube) 15 - 30 gm PO UD PRN; Protocol PRN Reason: Hypoglycemia Protocol Stop: 01/19/25 22:29 Glucose (Glucose 10 Tab/Tube) 4 - 8 tab PO UD PRN; Protocol PRN Reason: Hypoglycemia Protocol Stop: 01/19/25 22:29 Guaifenesin (Guaifenesin 600 Mg Tabcr) 1,200 mg PO Q12 [facility] Stop: 01/20/25 08:59 Last Admin: 12/24/24 08:15 Dose: Not Given Haloperidol Lactate (Haloperidol Lactate 5 Mg/Ml 1 Ml Vial) 2.5 mg IV Q6H PRN PRN Reason: Anxiety/Agitation Stop: 01/22/25 15:03 Last Admin: 12/23/24 23:55 Dose: 2.5 mg Cefepime HCl (Maxipime 2000mg) 2,000 mg in 20 mls @ 5 mls/min IV Q8H [facility]; Protocol Stop: 12/25/24 20:59 Last Admin: 12/24/24 05:45 Dose: 5 mls/min Metronidazole (Flagyl) 500 mg in 100 mls @ 100 mls/hr IV Q8H [facility]; Protocol Stop: 12/26/24 11:14 Last Infusion: 12/24/24 11:43 Dose: Infused Acetaminophen (Ofirmev) 1,000 mg in 100 mls @ 400 mls/hr IV Q8H PRN; Protocol PRN Reason: Pain or Fever Stop: 12/24/24 18:14 Last Infusion: 12/23/24 10:42 Dose: Infused Methylprednisolone 40 mg/ (Syringe) 0.64 mls @ 1.5 mls/min IV Q8H [facility] Stop: 01/22/25 10:59 Last Admin: 12/24/24 10:48 Dose: 1.5 mls/min Azithromycin (Zithromax) 500 mg in 255 mls @ 127.5 mls/hr IV Q24H [facility] Stop: 12/28/24 09:29 Last Infusion: 12/24/24 10:49 Dose: Infused Insulin Aspart (Insulin Aspart Per Unit Charge) 0 units SC Q6 [facility] Stop: 01/19/25 22:16 Last Admin: 12/24/24 05:48 Dose: Not Given Midodrine (Midodrine Hcl 2.5 Mg Tab) 5 mg PO TID@0800,1200,1700 [facility] Stop: 01/20/25 11:59 Last Admin: 12/24/24 11:37 Dose: Not Given Miscellaneous (Carbohydrates For Hypoglycemia ) 15 - 30 gm PO UD PRN PRN Reason: Hypoglycemia Treatment Stop: 01/19/25 22:29 Morphine Sulfate (Morphine Sulfate 2 Mg/Ml Carp) 2 mg IV Q4 PRN PRN Reason: Moderate Pain (Scale 4, 5, 6) Stop: 01/05/25 09:11 Last Admin: 12/23/24 20:19 Dose: 2 mg Ondansetron HCl (Ondansetron Inj 2 Mg/Ml 2 Ml Vial) 4 mg IV Q6H PRN PRN Reason: Nausea Stop: 01/19/25 22:16 Last Admin: 12/23/24 09:54 Dose: 4 mg Sodium Chloride (Sodium Chlor 7% 4 Ml Neb) 4 ml NEB BIDR [facility] Stop: 01/20/25 09:59 Last Admin: 12/24/24 07:43 Dose: 4 ml PG Care Time/CCT Total # of Minutes Spent Total Time Spent with Patient: Total time spent is greater than 50% in coordination of care (as documented) at patient's floor/unit and/or counseling patient: Coding Level of Care Code 69092 SUB INP/OBS CARE 25MIN Diagnoses Respiratory failure J96.90 Acute respiratory acidosis J96.02 AMS (altered mental status) R41.82 Pneumonia J18.9 Time Spent (min) 25
--- NOTE | 2024-12-24 15:59 | XRay Report ---
XR chest 1V portable CLINICAL HISTORY: [facility] COMPARISON STUDY: 12/22/2024 FINDINGS: Stable cardiomegaly with mild pulmonary vascular congestion. There are are diffuse faint in terstitial and patchy pulmonary opacities, improved. No pleural effusion or pneumothorax seen. Stable elevation of the right hemidiaphragm. No pneumothorax. IMPRESSION: 1. Mild CHF, improved. 2. Persistent pulmonary opacities, also improved. ACT 112: Negative or not required by law. Electronically signed by: Bridger Henry M.D. 12/24/2024 3:58 PM
[2024-12-24] MEDS ORDERED: PROCHLORPERAZINE 5 MG in SYRINGE 4 ML IV PRN (18:15)
[2024-12-24] MEDS: SIMETHICONE 80 MG CHEW PO ONE (18:23)
[2024-12-25 06:14] LABS: Hematocrit (blood only) 37.5 % (37.0-47.0); Hemoglobin 12.6 g/dl (12.0-16.0); Mean Corpuscular Hemoglobin 32.7 pg (25.0-34.0); Mean Corpuscular Volume 97.4 fL (80.0-100.0); Platelet Count 183 K/uL (130-400); RDW Standard Deviation 46.4 fL (36.4-46.3); Red Blood Count 3.85 M/uL (4.20-5.40); White Blood Count 7.56 K/ul (4.8-10.8)
[2024-12-25 06:32] LABS: Alanine Aminotransferase 13.0 U/L (7-52); Albumin Globulin Ratio 1.0 (0.9-2); Alkaline Phosphatase 57.0 U/L (34-104); Anion Gap 7.0 (3-11); Bilirubin,Total 0.7 mg/dl (0.2-1.0); Blood Urea Nitrogen 39.0 mg/dl (6-23); Calcium 9.3 mg/dl (8.6-10.3); Carbon Dioxide 33.0 mmol/L (21-32); Chloride 104.0 mmol/L (98-107); Creatinine Clr Calc Pharmacy 81.5 ml/min; Globulin 3.2 gm/dl (2.5-4.0); Glucose 138.0 mg/dl (70-99(Fasting)); Potassium 3.3 mmol/L (3.5-5.1); Sodium 144.0 mmol/L (136-145); Total Protein 6.4 gm/dl (6.0-8.3)
--- NOTE | 2024-12-25 06:33 | Electrocardiogram Report ---
Test Reason : Blood Pressure : */* mmHG Vent. 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
--- NOTE | 2024-12-25 10:33 | XRay Report ---
Technique: A frontal view of the chest was obtained Comparison is made to the prior examination dated 12/22/2024 Findings: Diffuse interstitial pulmonary opacities are again seen bilaterally, slightly improved. The heart size is at the upper limit of normal. No definite pleural effusion or pneumothorax is seen. There is elevation of the right hemidiaphragm No fracture is noted. There is thoracic scoliosis and degenerative disc disease Impression: Slight improvement in diffuse pulmonary opacities, which may represent improving pneumonia ACT 112: Positive. There are findings on this exam that require communication between the performing entity and the patient following Patient Test Result Information Act ([place] ACT 112) guidelines. Electronically signed by Seymour Cardoso 12-25-2024 10:28 AM
[2024-12-25] MEDS: POTASSIUM CHLORIDE 20 MEQ/15 ML UDC PO STA (10:51)
--- NOTE | 2024-12-25 11:38 | Hospitalist Progress Note ---
Date of Service December 25, 2024 Assessment & Plan (1) Respiratory failure: (2) Acute respiratory acidosis: (3) AMS (altered mental status): (4) Pneumonia: Plan Gloria Romero is a 84 yo woman with PMH of dementia, bipolar depression, [facility]s [facility] and is wheelchair bound her sister is a retired pscyhiatrist. daughter noticed she been having coughing spell and wheezing since last week, on 12/20/2024, presented to our hospital with hypoxic, septic shock, CT chest show pneumonia 12/21, 10-15 liter of oxygen, started on vapoteherm. flagyl added for aspiration coverage, 12/22/ on 60 liter oxygen; straight NPO, lactate improved. low dose IV lasix. 12/23/ started on bipap; tolerating, mentation stable, lasix 20mg IV, creatinine stable 12/23; tolreating bipap overnight, BP stable, lasix 40mg IV #Hypoxic respiratory failure/hypercapnic respiratory failure septic shock BP improving, cutting down midodrine dose she's been tolerating bipap for 48 hours low dose lasix. started on bipap on 12/23. tolerating that . 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 Unclear baseline with her history of dementia, although it sounds like it is certainly far better than this. As I described delirium to the patient's daughter she recognized the syndrome and remembered that the patient had it previously about 7 years ago. Discussed the natural history of deliriums and how they often outlast the inciting illnesses #dementia Home meds will have to be on hold until she is alert enough to safely swallow - she's can no longer remember what she has for breakfast however, patient still highly verbal and interactive with daughter code status; intubation okay; no CPR wheelchair dependence bipolar depression in the past, [facility]iary try to take off her risperidone and that result in psychosis she's also on lamital before #DVT prophylaxis Lovenox #elevated troponin appears to be consistent with demand ischemia given her hypoxia and hypote nsioncontinue to trend until peak. Echocardiogram in the morning. family update, daughter updated in person on 12/21/2024, sister updated on 12/21/2024 5pm Admission and Anticipated Discharge Date Admission Date: December 20, 2024 Subjective she's on bipap and continue to remained comfortable mentation improving BP been 150> higher cutting down midodrine dose c/w IV antibiotics Physical Exam Physical Exam: VITALS: Reviewed. WEIGHT/BMI reviewed. GEN: Healthy appearing, well-developed, NAD. on bipap -Head: NC/AT; -Eyes: PERRL, EOMI. No discharge or redn ess; -Mouth and throat: MMM. Normal gums, muc ernesto, palate,. Good dentition. NECK: Supple, with no masses. CV: RRR, no m/r/g. LUNGS: congested breath sound. on bipap treatment. ABD: Soft, NT/ND, NBS, no masses or organomegaly. : N/A MSK: No deformities, Normal gait. EXT: No clubbing, cyanosis, or edema. Neuro: awake; alert. Results & Data Results & Data Vital Signs (Past 12 Hours) Vital Signs Temp Pulse Pulse Resp BP Pulse Ox O2 Del Method 12/25/24 11:13 36.5 C 71 20 166/91 H 99 BiPAP 12/25/24 08:54 BiPAP 12/25/24 07:23 37.5 C 78 20 152/85 H 96 BiPAP 12/25/24 07:04 67 24 95 12/25/24 07:04 67 24 95 BiPAP 12/25/24 03:49 36.5 C 56 L 19 131/75 100 BiPAP 12/25/24 02:15 55 L 22 96 12/25/24 02:15 52 L 19 98 BiPAP FiO2 12/25/24 11:13 12/25/24 08:54 12/25/24 07:23 12/25/24 07:04 50 12/25/24 07:04 50 12/25/24 03:49 12/25/24 02:15 50 12/25/24 02:15 40 Laboratory Results Laboratory Results - last 72 hr 12/22/24 12/22/24 12/22/24 12:11 17:26 23:43 WBC RBC Hgb POC Hgb Hct POC Hct MCV MCH MCHC RDW Std Deviation RDW Coeff of Guilherme Plt Count MPV Absolute Nucleated RBC Nucleated RBC % (auto) Specimen Type Sample Site POC pH POC pCO2 POC pO2 POC HCO3 POC Total CO2 POC Base Excess O2 Sat Pulse Oximetry ABG pH (Temp Correct) ABG pCO2 (Temp Corrct POC ABG pO2 at Pt Temp POC ABG O2 Sat Nabor Test VBG pH 7.37 VBG pCO2 51 H VBG pO2 50 VBG HCO3 30 VBG O2 Saturation 82.7 VBG Base Excess 3.1 O2 Delivery Device POC FiO2 EPAP IPAP POC Sodium Sodium POC Potassium Potassium Chloride Carbon Dioxide Anion Gap BUN Creatinine Est Cr Clr Drug Dosing eGFR BUN/Creatinine Ratio Glucose POC Glucose 124 H 100 H Lactate Calcium Total Bilirubin AST ALT Alkaline Phosphatase Total Protein Albumin Globulin Albumin/Globulin Ratio 12/23/24 12/23/24 12/23/24 00:02 05:38 05:41 WBC 11.22 H RBC 3.49 L Hgb 11.3 L POC Hgb Hct 34.6 L POC Hct MCV 99.1 MCH 32.4 MCHC 32.7 RDW Std Deviation 48.6 H RDW Coeff of Guilherme 13.3 Plt Count 151 MPV 10.6 Absolute Nucleated RBC Nucleated RBC % (auto) Specimen Type Sample Site POC pH POC pCO2 POC pO2 POC HCO3 POC Total CO2 POC Base Excess O2 Sat Pulse Oximetry ABG pH (Temp Correct) ABG pCO2 (Temp Corrct POC ABG pO2 at Pt Temp POC ABG O2 Sat Nabor Test VBG pH VBG pCO2 VBG pO2 VBG HCO3 VBG O2 Saturation VBG Base Excess O2 Delivery Device POC FiO2 EPAP IPAP POC Sodium Sodium 142 POC Potassium Potassium 3.9 Chloride 109 H Carbon Dioxide 26 Anion Gap 7 BUN 28 H Creatinine 0.60 Est Cr Clr Drug Dosing 79.3 eGFR 89.01 BUN/Creatinine Ratio 46.7 H Glucose 90 POC Glucose 105 H Lactate 1.1 Calcium 9.4 Total Bilirubin 0.7 AST 18 ALT 11 Alkaline Phosphatase 60 Total Protein 6.3 Albumin 3.2 L Globulin 3.1 Albumin/Globulin Ratio 1.0 12/23/24 12/23/24 12/23/24 11:49 13:14 18:04 WBC RBC Hgb POC Hgb 12.2 Hct POC Hct 36 L MCV MCH MCHC RDW Std Deviation RDW Coeff of Guilherme Plt Count MPV Absolute Nucleated RBC Nucleated RBC % (auto) Specimen Type Arterial Sample Site R Radial POC pH 7.41 POC pCO2 45 POC pO2 69 L POC HCO3 29 H POC Total CO2 30 POC Base Excess 4.0 H O2 Sat Pulse Oximetry 95 ABG pH (Temp Correct) 7.408 ABG pCO2 (Temp Corrct 45 POC ABG pO2 at Pt Temp 69 POC ABG O2 Sat 94.0 Nabor Test Pass VBG pH VBG pCO2 VBG pO2 VBG HCO3 VBG O2 Saturation VBG Base Excess O2 Delivery Device BIPAP POC FiO2 50 EPAP 5 IPAP 12 POC Sodium 142 Sodium POC Potassium 3.8 Potassium Chloride Carbon Dioxide Anion Gap BUN Creatinine Est Cr Clr Drug Dosing eGFR BUN/Creatinine Ratio Glucose POC Glucose 96 106 H Lactate Calcium Total Bilirubin AST ALT Alkaline Phosphatase Total Protein Albumin Globulin Albumin/Globulin Ratio 12/23/24 12/24/24 12/24/24 23:57 05:43 05:47 WBC 10.70 RBC 3.61 L Hgb 11.4 L POC Hgb Hct 36.1 L POC Hct MCV 100.0 MCH 31.6 MCHC 31.6 L RDW Std Deviation 49.2 H RDW Coeff of Guilherme 13.2 Plt Count 170 MPV 10.8 Absolute Nucleated RBC Nucleated RBC % (auto) Specimen Type Sample Site POC pH POC pCO2 POC pO2 POC HCO3 POC Total CO2 POC Base Excess O2 Sat Pulse Oximetry ABG pH (Temp Correct) ABG pCO2 (Temp Corrct POC ABG pO2 at Pt Temp POC ABG O2 Sat Nabor Test VBG pH VBG pCO2 VBG pO2 VBG HCO3 VBG O2 Saturation VBG Base Excess O2 Delivery Device POC FiO2 EPAP IPAP POC Sodium Sodium 145 POC Potassium Potassium 3.7 Chloride 108 H Carbon Dioxide 29 Anion Gap 8 BUN 39 H Creatinine 0.54 L Est Cr Clr Drug Dosing 86.4 eGFR 91.29 BUN/Creatinine Ratio 72.2 H Glucose 112 H POC Glucose 110 H 118 H Lactate Calcium 9.2 Total Bilirubin 0.6 AST 16 ALT 10 Alkaline Phosphatase 57 Total Protein 5.9 L Albumin 3.1 L Globulin 2.8 Albumin/Globulin Ratio 1.1 12/24/24 12/24/24 12/25/24 12:07 17:59 00:17 WBC RBC Hgb POC Hgb Hct POC Hct MCV MCH MCHC RDW Std Deviation RDW Coeff of Guilherme Plt Count MPV Absolute Nucleated RBC Nucleated RBC % (auto) Specimen Type Sample Site POC pH POC pCO2 POC pO2 POC HCO3 POC Total CO2 POC Base Excess O2 Sat Pulse Oximetry ABG pH (Temp Correct) ABG pCO2 (Temp Corrct POC ABG pO2 at Pt Temp POC ABG O2 Sat Nabor Test VBG pH VBG pCO2 VBG pO2 VBG HCO3 VBG O2 Saturation VBG Base Excess O2 Delivery Device POC FiO2 EPAP IPAP POC Sodium Sodium POC Potassium Potassium Chloride Carbon Dioxide Anion Gap BUN Creatinine Est Cr Clr Drug Dosing eGFR BUN/Creatinine Ratio Glucose POC Glucose 120 H 123 H 140 H Lactate Calcium Total Bilirubin AST ALT Alkaline Phosphatase Total Protein Albumin Globulin Albumin/Globulin Ratio 12/25/24 12/25/24 05:47 05:56 WBC 7.56 RBC 3.85 L Hgb 12.6 POC Hgb Hct 37.5 POC Hct MCV 97.4 MCH 32.7 MCHC 33.6 RDW Std Deviation 46.4 H RDW Coeff of Guilherme 13.0 Plt Count 183 MPV 10.6 Absolute Nucleated RBC 0.02 Nucleated RBC % (auto) 0.3 Specimen Type Sample Site POC pH POC pCO2 POC pO2 POC HCO3 POC Total CO2 POC Base Excess O2 Sat Pulse Oximetry ABG pH (Temp Correct) ABG pCO2 (Temp Corrct POC ABG pO2 at Pt Temp POC ABG O2 Sat Nabor Test VBG pH VBG pCO2 VBG pO2 VBG HCO3 VBG O2 Saturation VBG Base Excess O2 Delivery Device POC FiO2 EPAP IPAP POC Sodium Sodium 144 POC Potassium Potassium 3.3 L Chloride 104 Carbon Dioxide 33 H Anion Gap 7 BUN 39 H Creatinine 0.56 L Est Cr Clr Drug Dosing 81.5 eGFR 90.50 BUN/Creatinine Ratio 69.6 H Glucose 138 H POC Glucose 123 H Lactate Calcium 9.3 Total Bilirubin 0.7 AST 18 ALT 13 Alkaline Phosphatase 57 Total Protein 6.4 Albumin 3.2 L Globulin 3.2 Albumin/Globulin Ratio 1.0 PG Care Time/CCT Total # of Minutes Spent Total Time Spent with Patient: Total time spent is greater than 50% in coordination of care (as documented) at patient's floor/unit and/or counseling patient: Coding Level of Care Code 90745 SUB INP/OBS CARE 1/25MIN Diagnoses Respiratory failure J96.90 Acute respiratory acidosis J96.02 AMS (altered mental status) R41.82 Pneumonia J18.9 Time Spent (min) 25
[2024-12-25] MEDS: OPTIRAY 320 125ml IV ONE (12:43)
--- NOTE | 2024-12-25 13:04 | Pulmonology Progress Note ---
Date of Service December 25, 2024 Assessment & Plan (1) ARDS (adult respiratory distress syndrome): Plan: Respiratory status appears to be improving with improving hypoxemia and improved chest imaging. Still requiring BiPAP as needed which I think may be potentially anxiety mediated as well. Continue broad-spectrum antibiotics with steroids for severe CAP. (2) AMS (altered mental status): Plan: Altered mental status likely related to hypoxemia delirium while in the hospital. (3) Respiratory failure: Plan: See comments above. (4) Chest pain: Plan: EKG without acute ischemic changes. Troponin mildly elevated compared to prior. This can be trended by the hospitalist service. Follow her chest pain telemetry closely. Chest CT personally reviewed with significant improvement in dense consolidative opacities in the right lower lobe and right upper lobe. There is still appears to be diffuse mild ground glass changes and mild opacities in the right lower lobe. No obvious pulmonary embolism identified. Official CT chest report pending. Admission and Anticipated Discharge Date Admission Date: December 20, 2024 Subjective Patient's oxygen requirements are improving, but she remains anxious and short of breath at times. No fevers or chills. No hemodynamic issues. She endorses mild chest pain anteriorly. EKG completed at the time of chest pain without overt ischemic changes. Review of Systems Review of Systems: All systems reviewed & are unremarkable except as noted in HPI & below Physical Exam Physical Exam: Constitutional: Obese. Elderly appearing fatigued. Fragile. Eyes: Pupils are equal round and reactive to light. Conjunctivae are normal. Anicteric sclera. Ears nose, mouth and throat: Mallampati class 2. Normal posterior oropharynx. Uvula is midline. Nasal cannula in place. Perioral cyanosis noted. Neck: Trachea is midline. Visual inspection is normal. Respiratory: Diffuse rhonchi and crackles in the lower lobes. Tachypneic. Cardiovascular: Regular rate and rhythm. No murmurs. No edema. Gastrointestinal: Normal bowel sounds, soft, nontender and nondistended. No hepatosplenomegaly noted. Musculoskeletal: No cyanosis. Patient is able to move all extremities. Strength is 5 out of 5 in the upper and lower extremities. Skin: No rashes, warm dry and intact. Neurologic: No obvious focal neurological deficits seen. Psychiatric: Alert and oriented x1 with a depressed mood. Results & Data Results & Data Vital Signs (Past 12 Hours) Vital Signs Temp Pulse Pulse Resp BP Pulse Ox O2 Del Method 12/25/24 11:13 36.5 C 71 20 166/91 H 99 BiPAP 12/25/24 08:54 BiPAP 12/25/24 07:23 37.5 C 78 20 152/85 H 96 BiPAP 12/25/24 07:04 67 24 95 12/25/24 07:04 67 24 95 BiPAP 12/25/24 03:49 36.5 C 56 L 19 131/75 100 BiPAP 12/25/24 02:15 55 L 22 96 12/25/24 02:15 52 L 19 98 BiPAP FiO2 12/25/24 11:13 12/25/24 08:54 12/25/24 07:23 12/25/24 07:04 50 12/25/24 07:04 50 12/25/24 03:49 12/25/24 02:15 50 12/25/24 02:15 40 PG Care Time/CCT Total # of Minutes Spent Total Time Spent with Patient: Total time spent is greater than 50% in coordination of care (as documented) at patient's floor/unit and/or counseling patient: Coding Level of Care Code 33662 SUB INP/OBS CARE 2/35MIN Diagnoses ARDS (adult respiratory distress syndrome) J80 AMS (altered mental status) R41.82 Respiratory failure J96.90 Chest pain R07.9
[2024-12-25] MEDS: SIMETHICONE 80 MG CHEW PO SCH (13:15)
--- NOTE | 2024-12-25 13:44 | CT Scan Report ---
Clinical history: Rule out pulmonary embolism Technique: Axial computed tomography images were obtained of the chest after the administration of intravenous contrast according to the CT angiogram protocol Comparison is made to the prior CT dated 12/20/2024 Findings: There is no definite sign of pulmonary embolism. There are multifocal groundglass infiltrates bilaterally. There is bilateral lower lobe atelectasis. There is a small left pleural effusion. There is no right pleural effusion or pneumothorax. No endobronchial lesion is seen There is no mediastinal, hilar, or axillary adenopathy. The thoracic aorta appears unremarkable with no sign of aneurysm or dissection. There is no pericardial effusion There is elevation of the right hemidiaphragm. The gallbladder has been removed. There is a small hiatal hernia. No fracture is seen. No focal osseous lesion is evident Impression: 1. No definite sign of pulmonary embolism 2. Multifocal groundglass infiltrates that may be due to viral pneumonitis 3. Elevation of the right hemidiaphragm and bilateral lower lobe atelectasis 4. Small hiatal hernia 5. Small left pleural effusion ACT 112: Positive. There are findings on this exam that require communication between the performing entity and the patient following Patient Test Result Information Act ([place] ACT 112) guidelines. Electronically signed by Seymour Cardoso 12-25-2024 13:43 PM
[2024-12-26 06:35] LABS: Alanine Aminotransferase 15.0 U/L (7-52); Albumin Globulin Ratio 1.0 (0.9-2); Alkaline Phosphatase 54.0 U/L (34-104); Anion Gap 5.0 (3-11); Bilirubin,Total 0.7 mg/dl (0.2-1.0); Blood Urea Nitrogen 34.0 mg/dl (6-23); Calcium 9.3 mg/dl (8.6-10.3); Carbon Dioxide 34.0 mmol/L (21-32); Chloride 105.0 mmol/L (98-107); Creatinine Clr Calc Pharmacy 87.8 ml/min; Globulin 3.1 gm/dl (2.5-4.0); Glucose 149.0 mg/dl (70-99(Fasting)); Potassium 3.7 mmol/L (3.5-5.1); Sodium 144.0 mmol/L (136-145); Total Protein 6.3 gm/dl (6.0-8.3)
[2024-12-26] MEDS: BUMETANIDE 0.5 MG in SYRINGE 0 ML IV ONE (08:31)
--- NOTE | 2024-12-26 11:38 | Hospitalist Progress Note ---
Date of Service December 26, 2024 Assessment & Plan (1) Respiratory failure: (2) Acute respiratory acidosis: (3) AMS (altered mental status): (4) Pneumonia: Plan Gloria Romero is a 84 yo woman with PMH of dementia, bipolar depression, shes live in residential and is wheelchair bound her sister is a retired pscyhiatrist. daughter noticed she been having coughing spell and wheezing since last week, on 12/20/2024, presented to our hospital with hypoxic, septic shock, CT chest show pneumonia 12/21, 10-15 liter of oxygen, started on vapoteherm. flagyl added for aspiration coverage, 12/22/ on 60 liter oxygen; straight NPO, lactate improved. low dose IV lasix. 12/23/ started on bipap; tolerating, mentation stable, lasix 20mg IV, creatinine stable 12/23; tolreating bipap overnight, BP stable, lasix 40mg IV #Hypoxic respiratory failure/hypercapnic respiratory failure septic shock BP stable off midodrine she's continue to tolerate bipap currently on 60 liter high flow . 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 her mentation does improve with family present #dementia seen by speech and cleared for diet as now as she's no somnolent, okay to give oral med Home meds will have to be on hold until she is alert enough to safely swallow - she's can no longer remember what she has for breakfast however, patient still highly verbal and interactive with daughter code status; intubation okay; no CPR wheelchair dependence bipolar depression in the past, residential try to take off her risperidone and that result in psychosis she's also on lamital before #DVT prophylaxis Lovenox #elevated troponin appears to be consistent with demand ischemia given her hypoxia and hypotensio ncontinue to trend until peak. Echocardiogram in the morning. family update, daughter updated in person on 12/21/2024, sister updated on 12/21/2024 5pm Admission and Anticipated Discharge Date Admission Date: December 20, 2024 Subjective her BP is stable off midodrine still on 60 liter, tolerating bipap oveernight without issues speech cleared her for pureed and thin liquid today switching cefepime, flagyl to ceftriaxone reviewed CTA chest, negative for PE continue aggressive mucinex and hypertonic saline Review of Systems Review of Systems: general: no fever heart: no chest pain lung: no worsening shortness of breath abdomen: no nausea, no vomiting Physical Exam Physical Exam: VITALS: Reviewed. WEIGHT/BMI reviewed. GEN: chronically ill appearing psych: calm; cooperative -Head: NC/AT; NECK: Supple, with no masses. CV: RRR, no m/r/g. LUNGS: congested breath sound; on 60 liter; ABD: Soft, NT/ND, NBS, no masses or organomegaly. MSK: No deformities, Normal gait. EXT: No clubbing, cyanosis, or edema. NEURO: following simple command. no involuntary movement. Results & Data Results & Data Vital Signs (Past 12 Hours) Vital Signs Temp Pulse Pulse Resp BP Pulse Ox O2 Del Method 12/26/24 10:45 High Flow Nasal Cannula 12/26/24 09:29 77 20 94 High Flow Nasal Cannula 12/26/24 08:05 36.9 C 88 161/98 H 100 BiPAP 12/26/24 07:05 55 L 18 100 12/26/24 07:05 55 L 18 100 BiPAP 12/26/24 02:54 72 22 100 12/26/24 02:38 36.5 C 73 18 139/85 100 CPAP 12/26/24 00:52 69 18 97 12/26/24 00:03 69 20 100 BiPAP O2 Flow Rate FiO2 12/26/24 10:45 12/26/24 09:29 50 60 12/26/24 08:05 50 12/26/24 07:05 60 12/26/24 07:05 60 12/26/24 02:54 60 12/26/24 02:38 12/26/24 00:52 60 12/26/24 00:03 60 Laboratory Results Laboratory Results - last 72 hr 12/23/24 12/23/24 12/23/24 11:49 13:14 18:04 WBC RBC Hgb POC Hgb 12.2 Hct POC Hct 36 L MCV MCH MCHC RDW Std Deviation RDW Coeff of Guilherme Plt Count MPV Absolute Nucleated RBC Nucleated RBC % (auto) Specimen Type Arterial Sample Site R Radial POC pH 7.41 POC pCO2 45 POC pO2 69 L POC HCO3 29 H POC Total CO2 30 POC Base Excess 4.0 H O2 Sat Pulse Oximetry 95 ABG pH (Temp Correct) 7.408 ABG pCO2 (Temp Corrct 45 POC ABG pO2 at Pt Temp 69 POC ABG O2 Sat 94.0 Nabor Test Pass O2 Delivery Device BIPAP POC FiO2 50 EPAP 5 IPAP 12 POC Sodium 142 Sodium POC Potassium 3.8 Potassium Chloride Carbon Dioxide Anion Gap BUN Creatinine Est Cr Clr Drug Dosing eGFR BUN/Creatinine Ratio Glucose POC Glucose 96 106 H Calcium Total Bilirubin AST ALT Alkaline Phosphatase Troponin I High Sens Total Protein Albumin Globulin Albumin/Globulin Ratio 12/23/24 12/24/24 12/24/24 23:57 05:43 05:47 WBC 10.70 RBC 3.61 L Hgb 11.4 L POC Hgb Hct 36.1 L POC Hct MCV 100.0 MCH 31.6 MCHC 31.6 L RDW Std Deviation 49.2 H RDW Coeff of Guilherme 13.2 Plt Count 170 MPV 10.8 Absolute Nucleated RBC Nucleated RBC % (auto) Specimen Type Sample Site POC pH POC pCO2 POC pO2 POC HCO3 POC Total CO2 POC Base Excess O2 Sat Pulse Oximetry ABG pH (Temp Correct) ABG pCO2 (Temp Corrct POC ABG pO2 at Pt Temp POC ABG O2 Sat Nabor Test O2 Delivery Device POC FiO2 EPAP IPAP POC Sodium Sodium 145 POC Potassium Potassium 3.7 Chloride 108 H Carbon Dioxide 29 Anion Gap 8 BUN 39 H Creatinine 0.54 L Est Cr Clr Drug Dosing 86.4 eGFR 91.29 BUN/Creatinine Ratio 72.2 H Glucose 112 H POC Glucose 110 H 118 H Calcium 9.2 Total Bilirubin 0.6 AST 16 ALT 10 Alkaline Phosphatase 57 Troponin I High Sens Total Protein 5.9 L Albumin 3.1 L Globulin 2.8 Albumin/Globulin Ratio 1.1 12/24/24 12/24/24 12/25/24 12:07 17:59 00:17 WBC RBC Hgb POC Hgb Hct POC Hct MCV MCH MCHC RDW Std Deviation RDW Coeff of Guilherme Plt Count MPV Absolute Nucleated RBC Nucleated RBC % (auto) Specimen Type Sample Site POC pH POC pCO2 POC pO2 POC HCO3 POC Total CO2 POC Base Excess O2 Sat Pulse Oximetry ABG pH (Temp Correct) ABG pCO2 (Temp Corrct POC ABG pO2 at Pt Temp POC ABG O2 Sat Nabor Test O2 Delivery Device POC FiO2 EPAP IPAP POC Sodium Sodium POC Potassium Potassium Chloride Carbon Dioxide Anion Gap BUN Creatinine Est Cr Clr Drug Dosing eGFR BUN/Creatinine Ratio Glucose POC Glucose 120 H 123 H 140 H Calcium Total Bilirubin AST ALT Alkaline Phosphatase Troponin I High Sens Total Protein Albumin Globulin Albumin/Globulin Ratio 12/25/24 12/25/24 12/25/24 05:47 05:56 11:39 WBC 7.56 RBC 3.85 L Hgb 12.6 POC Hgb Hct 37.5 POC Hct MCV 97.4 MCH 32.7 MCHC 33.6 RDW Std Deviation 46.4 H RDW Coeff of Guilherme 13.0 Plt Count 183 MPV 10.6 Absolute Nucleated RBC 0.02 Nucleated RBC % (auto) 0.3 Specimen Type Sample Site POC pH POC pCO2 POC pO2 POC HCO3 POC Total CO2 POC Base Excess O2 Sat Pulse Oximetry ABG pH (Temp Correct) ABG pCO2 (Temp Corrct POC ABG pO2 at Pt Temp POC ABG O2 Sat Nabor Test O2 Delivery Device POC FiO2 EPAP IPAP POC Sodium Sodium 144 POC Potassium Potassium 3.3 L Chloride 104 Carbon Dioxide 33 H Anion Gap 7 BUN 39 H Creatinine 0.56 L Est Cr Clr Drug Dosing 81.5 eGFR 90.50 BUN/Creatinine Ratio 69.6 H Glucose 138 H POC Glucose 123 H 158 H Calcium 9.3 Total Bilirubin 0.7 AST 18 ALT 13 Alkaline Phosphatase 57 Troponin I High Sens Total Protein 6.4 Albumin 3.2 L Globulin 3.2 Albumin/Globulin Ratio 1.0 12/25/24 12/25/24 12/26/24 11:47 17:41 00:57 WBC RBC Hgb POC Hgb Hct POC Hct MCV MCH MCHC RDW Std Deviation RDW Coeff of Guilherme Plt Count MPV Absolute Nucleated RBC Nucleated RBC % (auto) Specimen Type Sample Site POC pH POC pCO2 POC pO2 POC HCO3 POC Total CO2 POC Base Excess O2 Sat Pulse Oximetry ABG pH (Temp Correct) ABG pCO2 (Temp Corrct POC ABG pO2 at Pt Temp POC ABG O2 Sat Nabor Test O2 Delivery Device POC FiO2 EPAP IPAP POC Sodium Sodium POC Potassium Potassium Chloride Carbon Dioxide Anion Gap BUN Creatinine Est Cr Clr Drug Dosing eGFR BUN/Creatinine Ratio Glucose POC Glucose 144 H 148 H Calcium Total Bilirubin AST ALT Alkaline Phosphatase Troponin I High Sens 47.9 H Total Protein Albumin Globulin Albumin/Globulin Ratio 12/26/24 12/26/24 05:49 11:31 WBC RBC Hgb POC Hgb Hct POC Hct MCV MCH MCHC RDW Std Deviation RDW Coeff of Guilherme Plt Count MPV Absolute Nucleated RBC Nucleated RBC % (auto) Specimen Type Sample Site POC pH POC pCO2 POC pO2 POC HCO3 POC Total CO2 POC Base Excess O2 Sat Pulse Oximetry ABG pH (Temp Correct) ABG pCO2 (Temp Corrct POC ABG pO2 at Pt Temp POC ABG O2 Sat Nabor Test O2 Delivery Device POC FiO2 EPAP IPAP POC Sodium Sodium 144 POC Potassium Potassium 3.7 Chloride 105 Carbon Dioxide 34 H Anion Gap 5 BUN 34 H Creatinine 0.52 L Est Cr Clr Drug Dosing 87.8 eGFR 92.13 BUN/Creatinine Ratio 65.4 H Glucose 149 H POC Glucose 163 H Calcium 9.3 Total Bilirubin 0.7 AST 20 ALT 15 Alkaline Phosphatase 54 Troponin I High Sens Total Protein 6.3 Albumin 3.2 L Globulin 3.1 Albumin/Globulin Ratio 1.0 PG Care Time/CCT Total # of Minutes Spent Total Time Spent with Patient: Total time spent is greater than 50% in coordination of care (as documented) at patient's floor/unit and/or counseling patient: Coding Level of Care Code 83533 SUB INP/OBS CARE 2/35MIN Diagnoses Respiratory failure J96.90 Acute respiratory acidosis J96.02 AMS (altered mental status) R41.82 Pneumonia J18.9 Time Spent (min) 36
[2024-12-26] MEDS ORDERED: VANCOMYCIN CONSULT ACTIVE PRN (11:39)
[2024-12-26] MEDS: VANCOMYCIN HCL 1,250 MG in SODIUM CHLORIDE 0.9% 250 ML IV SCH (11:55)
--- NOTE | 2024-12-26 12:41 | Pulmonology Progress Note ---
Date of Service December 26, 2024 Assessment & Plan (1) ARDS (adult respiratory distress syndrome): Plan: Respiratory status appears to be improving with improving hypoxemia and improved chest imaging. Weaning high flow down. Continue Rocephin and azithromycin. Recommend weaning down IV methylprednisone. Vancomycin added by hospital service. No indication for vancomycin at this time as imaging is improving, white count improving and oxygenation is improving. Vancomycin discontinued. (2) AMS (altered mental status): Plan: Altered mental status likely related to hypoxemia delirium while in the hospital. (3) Respiratory failure: Plan: See comments above. (4) Chest pain: Plan: No additional chest pain today. CT chest yesterday without evidence of PE. EKG without ischemic findings. Troponin minimally elevated likely due to demand ischemia. Plan Pulmonary to sign off at this time. Please call with questions. Thank you for the consult. Admission and Anticipated Discharge Date Admission Date: December 20, 2024 Subjective Respiratory status significantly improved today with decreasing oxygen requirements. Patient appears more comfortable. No fevers or chills overnight. White count continues to improve. Review of Systems Review of Systems: All systems reviewed & are unremarkable except as noted in HPI & below Physical Exam Physical Exam: Constitutional: Obese. Elderly appearing fatigued. Fragile. Eyes: Pupils are equal round and reactive to light. Conjunctivae are normal. Anicteric sclera. Ears nose, mouth and throat: Mallampati class 2. Normal posterior oropharynx. Uvula is midline. Nasal cannula in place. Perioral cyanosis noted. Neck: Trachea is midline. Visual inspection is normal. Respiratory: Diffuse rhonchi and crackles in the lower lobes. Tachypneic. Cardiovascular: Regular rate and rhythm. No murmurs. No edema. Gastrointestinal: Normal bowel sounds, soft, nontender and nondistended. No hepatosplenomegaly noted. Musculoskeletal: No cyanosis. Patient is able to move all extremities. Strength is 5 out of 5 in the upper and lower extremities. Skin: No rashes, warm dry and intact. Neurologic: No obvious focal neurological deficits seen. Psychiatric: Alert and oriented x1 with a depressed mood. Results & Data Results & Data Vital Signs (Past 12 Hours) Vital Signs Temp Pulse Pulse Resp BP Pulse Ox O2 Del Method 12/26/24 12:23 64 16 97 Nasal Cannula 12/26/24 10:45 High Flow Nasal Cannula 09/14/25 09:29 77 20 94 High Flow Nasal Cannula 12/26/24 08:05 36.9 C 88 161/98 H 100 BiPAP 12/26/24 07:05 55 L 18 100 12/26/24 07:05 55 L 18 100 BiPAP 12/26/24 02:54 72 22 100 12/26/24 02:38 36.5 C 73 18 139/85 100 CPAP 12/26/24 00:52 69 18 97 O2 Flow Rate FiO2 12/26/24 12:23 10 12/26/24 10:45 12/26/24 09:29 50 60 12/26/24 08:05 50 12/26/24 07:05 60 12/26/24 07:05 60 12/26/24 02:54 60 12/26/24 02:38 12/26/24 00:52 60 PG Care Time/CCT Total # of Minutes Spent Total Time Spent with Patient: Total time spent is greater than 50% in coordination of care (as documented) at patient's floor/unit and/or counseling patient: Coding Level of Care Code 40419 SUB INP/OBS CARE 2/35MIN Diagnoses ARDS (adult respiratory distress syndrome) J80 AMS (altered mental status) R41.82 Respiratory failure J96.90 Chest pain R07.9
[2024-12-26] MEDS: cefTRIAXone SODIUM 2,000 MG/50 ML BAG IV SCH (12:52)
[2024-12-26] MEDS ORDERED: Nursing to Pharmacy Communication SCH (20:15)
[2024-12-26] MEDS: INSULIN ASPART PER UNIT CHARGE SC SCH (21:21)
[2024-12-27 07:04] LABS: Hematocrit (blood only) 40.4 % (37.0-47.0); Hemoglobin 12.9 g/dl (12.0-16.0); Mean Corpuscular Hemoglobin 31.5 pg (25.0-34.0); Mean Corpuscular Volume 98.5 fL (80.0-100.0); Platelet Count 223 K/uL (130-400); RDW Standard Deviation 46.4 fL (36.4-46.3); Red Blood Count 4.10 M/uL (4.20-5.40); White Blood Count 9.91 K/ul (4.8-10.8)
[2024-12-27 07:30] LABS: Alanine Aminotransferase 15.0 U/L (7-52); Albumin Globulin Ratio 1.1 (0.9-2); Alkaline Phosphatase 51.0 U/L (34-104); Anion Gap 7.0 (3-11); Bilirubin,Total 0.6 mg/dl (0.2-1.0); Blood Urea Nitrogen 32.0 mg/dl (6-23); Calcium 9.1 mg/dl (8.6-10.3); Carbon Dioxide 35.0 mmol/L (21-32); Chloride 101.0 mmol/L (98-107); Creatinine Clr Calc Pharmacy 92.7 ml/min; Globulin 2.9 gm/dl (2.5-4.0); Glucose 150.0 mg/dl (70-99(Fasting)); Potassium 3.7 mmol/L (3.5-5.1); Sodium 143.0 mmol/L (136-145); Total Protein 6.2 gm/dl (6.0-8.3)
[2024-12-27] MEDS: SENNA 8.6 MG TAB PO SCH (08:58)
--- NOTE | 2024-12-27 09:46 | Hospitalist Progress Note ---
Date of Service December 27, 2024 Assessment & Plan (1) Respiratory failure: (2) Acute respiratory acidosis: (3) AMS (altered mental status): (4) Pneumonia: Plan Gloria Romero is a 84 yo woman with PMH of dementia, bipolar depression, shes live in [facility] and is wheelchair bound her sister is a retired pscyhiatrist. daughter noticed she been having coughing spell and wheezing since last week, on 12/20/2024, presented to our hospital with hypoxic, septic shock, CT chest show pneumonia 12/21, 10-15 liter of oxygen, started on vapoteherm. flagyl added for aspiration coverage, 12/22/ on 60 liter oxygen; straight NPO, lactate improved. low dose IV lasix. 12/23/ started on bipap; tolerating, mentation stable, lasix 20mg IV, creatinine stable 12/23; tolreating bipap overnight, BP stable, lasix 40mg IV 12/26; wean from high flow to nasal cannula, tolerate pureed diet 12/27, she's currently on 6 liter, plan for MBS today daughter and sister, requested for placement to [facility] overall plan MBS to r/o microaspiration, HOB at 90 degree with oral intake, no feeding if somnolence or tired ceftriaxone for aspiration pNA, mucinex, flutter valve to mucolytics begin evaluating for [facility] rehab #Hypoxic respiratory failure/hypercapnic respiratory failure septic shock BP stable off midodrine she was on 40-60 liter she been wean to 4-6 liter oxygen . mucinex, flutter valve. 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 #dementia seen by speech and cleared for diet as now as she's no somnolent, okay to give oral med Home meds will have to be on hold until she is alert enough to safely swallow - she's can no longer remember what she has for breakfast however, patient still highly verbal and interactive with daughter code status; intubation okay; no CPR wheelchair dependence bipolar depression in the past, [facility] try to take off her risperidone and that result in psychosis she's also on lamital before #DVT prophylaxis Lovenox #elevated troponin appears to be consistent with demand ischemia given her hypoxia and hypotensioncontinue to trend until peak. Echocardiogram in the morning. family update daughter and sister updated again on 12/26/2024; at 3pm Admission and Anticipated Discharge Date Admission Date: December 20, 2024 Subjective she is weaning from high flow to 6 liter oxygen today however, still appeared frail, c/w ceftriaxone for aspiration PNA plan for MBS today sister and daughter updated at length yesterday she from [facility] and there is rehab component of [facility] she has memory impairment from bipolar, unable to provide detail ROS Physical Exam Physical Exam: VITALS: Reviewed. WEIGHT/BMI reviewed. GEN: chronically ill appearing; frail -Head: NC/AT; NECK: Supple, with no masses. CV: RRR, no m/r/g. LUNGS: CTAB, no w/r/c. congested breath sound; on 6 litre oxygen ABD: Soft, NT/ND, NBS, no masses or organomegaly. SKIN: Warm, well perfused. No skin rashes or abnormal lesions. MSK: No deformities, Normal gait. EXT: No clubbing, cyanosis, or edema. NEURO: only follow simple command Results & Data Results & Data Vital Signs (Past 12 Hours) Vital Signs Temp Pulse Pulse Resp BP BP Pulse Ox 12/27/24 09:15 59 L 12/27/24 09:15 12/27/24 07:19 61 18 90 12/27/24 07:14 36.8 C 64 20 164/82 H 89 L 12/27/24 04:21 12/27/24 03:38 66 26 H 96 12/27/24 03:13 36.7 C 58 L 16 128/87 96 12/27/24 01:01 63 26 H 96 12/26/24 23:29 36.9 C 61 18 161/73 H 95 12/26/24 22:02 57 L 12/26/24 22:00 Pulse Ox O2 Del Method O2 Del Method O2 Flow Rate FiO2 12/27/24 09:15 12/27/24 09:15 Nasal Cannula 6 12/27/24 07:19 Nasal Cannula 6 12/27/24 07:14 High Flow Nasal Cannula 89 12/27/24 04:21 BiPAP 12/27/24 03:38 40 12/27/24 03:13 BiPAP 12/27/24 01:01 BiPAP 40 12/26/24 23:29 BiPAP 12/26/24 22:02 12/26/24 22:00 95 [facility] Laboratory Results Laboratory Results - last 72 hr 12/24/24 12/24/24 12/25/24 12:07 17:59 00:17 WBC RBC Hgb Hct MCV MCH MCHC RDW Std Deviation RDW Coeff of Guilherme Plt Count MPV Absolute Nucleated RBC Nucleated RBC % (auto) Sodium Potassium Chloride Carbon Dioxide Anion Gap BUN Creatinine Est Cr Clr Drug Dosing eGFR BUN/Creatinine Ratio Glucose POC Glucose 120 H 123 H 140 H Calcium Total Bilirubin AST ALT Alkaline Phosphatase Troponin I High Sens Total Protein Albumin Globulin Albumin/Globulin Ratio 12/25/24 12/25/24 12/25/24 05:47 05:56 11:39 WBC 7.56 RBC 3.85 L Hgb 12.6 Hct 37.5 MCV 97.4 MCH 32.7 MCHC 33.6 RDW Std Deviation 46.4 H RDW Coeff of Guilherme 13.0 Plt Count 183 MPV 10.6 Absolute Nucleated RBC 0.02 Nucleated RBC % (auto) 0.3 Sodium 144 Potassium 3.3 L Chloride 104 Carbon Dioxide 33 H Anion Gap 7 BUN 39 H Creatinine 0.56 L Est Cr Clr Drug Dosing 81.5 eGFR 90.50 BUN/Creatinine Ratio 69.6 H Glucose 138 H POC Glucose 123 H 158 H Calcium 9.3 Total Bilirubin 0.7 AST 18 ALT 13 Alkaline Phosphatase 57 Troponin I High Sens Total Protein 6.4 Albumin 3.2 L Globulin 3.2 Albumin/Globulin Ratio 1.0 12/25/24 12/25/24 12/26/24 11:47 17:41 00:57 WBC RBC Hgb Hct MCV MCH MCHC RDW Std Deviation RDW Coeff of Guilherme Plt Count MPV Absolute Nucleated RBC Nucleated RBC % (auto) Sodium Potassium Chloride Carbon Dioxide Anion Gap BUN Creatinine Est Cr Clr Drug Dosing eGFR BUN/Creatinine Ratio Glucose POC Glucose 144 H 148 H Calcium Total Bilirubin AST ALT Alkaline Phosphatase Troponin I High Sens 47.9 H Total Protein Albumin Globulin Albumin/Globulin Ratio 12/26/24 12/26/24 12/26/24 05:49 11:31 16:08 WBC RBC Hgb Hct MCV MCH MCHC RDW Std Deviation RDW Coeff of Guilherme Plt Count MPV Absolute Nucleated RBC Nucleated RBC % (auto) Sodium 144 Potassium 3.7 Chloride 105 Carbon Dioxide 34 H Anion Gap 5 BUN 34 H Creatinine 0.52 L Est Cr Clr Drug Dosing 87.8 eGFR 92.13 BUN/Creatinine Ratio 65.4 H Glucose 149 H POC Glucose 163 H 156 H Calcium 9.3 Total Bilirubin 0.7 AST 20 ALT 15 Alkaline Phosphatase 54 Troponin I High Sens Total Protein 6.3 Albumin 3.2 L Globulin 3.1 Albumin/Globulin Ratio 1.0 12/26/24 12/27/24 12/27/24 20:37 05:51 07:18 WBC 9.91 RBC 4.10 L Hgb 12.9 Hct 40.4 MCV 98.5 MCH 31.5 MCHC 31.9 L RDW Std Deviation 46.4 H RDW Coeff of Guilherme 12.9 Plt Count 223 MPV 10.8 Absolute Nucleated RBC Nucleated RBC % (auto) Sodium 143 Potassium 3.7 Chloride 101 Carbon Dioxide 35 H Anion Gap 7 BUN 32 H Creatinine 0.49 L Est Cr Clr Drug Dosing 92.7 eGFR 93.46 BUN/Creatinine Ratio 65.3 H Glucose 150 H POC Glucose 153 H 146 H Calcium 9.1 Total Bilirubin 0.6 AST 22 ALT 15 Alkaline Phosphatase 51 Troponin I High Sens Total Protein 6.2 Albumin 3.3 L Globulin 2.9 Albumin/Globulin Ratio 1.1 Medications Administered Current Inpatient Medications Albuterol (Albut/Ipratrop 3mg/0.5mg Neb 3 Ml Vial) 3 ml NEB Q6R VIRGILIO; Protocol Stop: 01/20/25 10:34 Last Admin: 12/27/24 07:18 Dose: 3 ml Dextrose (Dextrose 50% 50 Ml Syringe) 25 - 50 ml IV UD PRN; Protocol PRN Reason: Hypoglycemia Protocol Stop: 01/19/25 22:29 Enoxaparin Sodium (Enoxaparin Inj 40 Mg/0.4 Ml Syr) 40 mg SQ Q24H VIRGILIO Stop: 01/19/25 21:59 Last Admin: 12/26/24 22:05 Dose: 40 mg Glucagon (Glucagon For Inj 1 Mg Vial) 1 mg SQ UD PRN; Protocol PRN Reason: Hypoglycemia Protocol Stop: 01/19/25 22:29 Glucose (Glucose 40% Gel 15 Gm Tube) 15 - 30 gm PO UD PRN; Protocol PRN Reason: Hypoglycemia Protocol Stop: 01/19/25 22:29 Glucose (Glucose 10 Tab/Tube) 4 - 8 tab PO UD PRN; Protocol PRN Reason: Hypoglycemia Protocol Stop: 01/19/25 22:29 Guaifenesin (Guaifenesin 600 Mg Tabcr) 1,200 mg PO Q12 [facility] Stop: 01/20/25 08:59 Last Admin: 12/27/24 07:56 Dose: 1,200 mg Haloperidol Lactate (Haloperidol Lactate 5 Mg/Ml 1 Ml Vial) 2.5 mg IV Q6H PRN PRN Reason: Anxiety/Agitation Stop: 01/22/25 15:03 Last Admin: 12/23/24 23:55 Dose: 2.5 mg Methylprednisolone 40 mg/ (Syringe) 0.64 mls @ 1.5 mls/min IV Q8H [facility] Stop: 01/22/25 10:59 Last Admin: 12/27/24 02:51 Dose: 1.5 mls/min Azithromycin (Zithromax) 500 mg in 255 mls @ 127.5 mls/hr IV Q24H [facility] Stop: 12/28/24 09:29 Last Admin: 12/27/24 07:56 Dose: 127.5 mls/hr Prochlorperazine 5 mg/ Syringe 5 mls @ 5 mls/min IV Q6H PRN PRN Reason: Nausea And Vomiting Stop: 01/23/25 18:14 Ceftriaxone Sodium (Rocephin) 2,000 mg in 50 mls @ 100 mls/hr IV Q24H [facility] Stop: 12/31/24 12:29 Last Infusion: 12/26/24 13:30 Dose: Infused Insulin Aspart (Insulin Aspart Per Unit Charge) 0 units SC ACHS [facility] Stop: 01/25/25 20:59 Last Admin: 12/27/24 07:56 Dose: Not Given Miscellaneous (Carbohydrates For Hypoglycemia ) 15 - 30 gm PO UD PRN PRN Reason: Hypoglycemia Treatment Stop: 01/19/25 22:29 Morphine Sulfate (Morphine Sulfate 2 Mg/Ml Carp) 2 mg IV Q4 PRN PRN Reason: Moderate Pain (Scale 4, 5, 6) Stop: 01/05/25 09:11 Last Admin: 12/25/24 06:40 Dose: 2 mg Ondansetron HCl (Ondansetron Inj 2 Mg/Ml 2 Ml Vial) 4 mg IV Q6H PRN PRN Reason: Nausea Stop: 01/19/25 22:16 Last Admin: 12/26/24 10:22 Dose: 4 mg Sennosides (Senna 8.6 Mg Tab) 17.2 mg PO QAM [facility] Stop: 01/26/25 08:14 Last Admin: 12/27/24 08:58 Dose: 17.2 mg Simethicone (Simethicone 80 Mg Chew) 160 mg PO Q8H [facility] Stop: 01/24/25 13:14 Last Admin: 12/27/24 05:45 Dose: 160 mg Sodium Chloride (Sodium Chlor 7% 4 Ml Neb) 4 ml NEB BIDR [facility] Stop: 01/20/25 09:59 Last Admin: 12/27/24 07:18 Dose: 4 ml PG Care Time/CCT Total # of Minutes Spent Total Time Spent with Patient: Total time spent is greater than 50% in coordination of care (as documented) at patient's floor/unit and/or counseling patient: Coding Level of Care Code 84981 SUB INP/OBS CARE 05/08MIN Diagnoses Respiratory failure J96.90 Acute respiratory acidosis J96.02 AMS (altered mental status) R41.82 Pneumonia J18.9 Time Spent (min) 24
--- NOTE | 2024-12-27 14:09 | Electrocardiogram Report ---
Test Reason : Blood Pressure : */* mmHG Vent. Rate : 74 BPM Atrial Rate : 74 BPM P-R Int : 142 ms QRS Dur : 82 ms QT Int : 382 ms P-R-T Axes : 26 -18 16 degrees QTcB Int : 424 ms Poor data quality, interpretation may be adversely affected Normal sinus rhythm Minimal voltage criteria for LVH, may be normal variant Cannot rule out Anterior infarct (cited on or before 17-Oct-2020) Abnormal ECG When compared with ECG of 23-Dec-2024 10:11, Questionable change in initial forces of Septal leads Confirmed by Toribio Saravia ([id number]) on 12/27/2024 2:08:54 PM Referred By: REFERRED SELF Confirmed By: Toribio Saravia
[2024-12-28 06:49] LABS: Hematocrit (blood only) 41.5 % (37.0-47.0); Hemoglobin 13.1 g/dl (12.0-16.0); Mean Corpuscular Hemoglobin 31.1 pg (25.0-34.0); Mean Corpuscular Volume 98.6 fL (80.0-100.0); Platelet Count 215 K/uL (130-400); RDW Standard Deviation 45.9 fL (36.4-46.3); Red Blood Count 4.21 M/uL (4.20-5.40); White Blood Count 13.53 K/ul (4.8-10.8)
--- NOTE | 2024-12-28 08:52 | Hospitalist Progress Note ---
Date of Service December 28, 2024 Assessment & Plan (1) Respiratory failure: (2) Acute respiratory acidosis: (3) AMS (altered mental status): (4) Pneumonia: Plan Gloria Romero is a 84 yo woman with PMH of dementia, bipolar depression, shes live in [facility] and is wheelchair bound her sister is a retired pscyhiatrist. daughter noticed she been having coughing spell and wheezing since last week, on 12/20/2024, presented to our hospital with hypoxic, septic shock, CT chest show pneumonia 12/21, 10-15 liter of oxygen, started on vapoteherm. flagyl added for aspiration coverage, 12/22/ on 60 liter oxygen; straight NPO, lactate improved. low dose IV lasix. 12/23/ started on bipap; tolerating, mentation stable, lasix 20mg IV, creatinine stable 12/23; tolreating bipap overnight, BP stable, lasix 40mg IV 12/26; wean from high flow to nasal cannula, tolerate pureed diet 12/27, she's currently on 6 liter, plan for MBS today daughter and sister, requested for placement to [facility] overall plan cefepime and flagy for PNA repeat CXR her oxygen need continue to improve. f/u on MBS result and speech recommendation #Hypoxic respiratory failure/hypercapnic respiratory failure septic shock BP stable off midodrine she was on 40-60 liter she been wean to 4-6 liter oxygen . mucinex, flutter valve. 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 #dementia seen by speech and cleared for diet as now as she's no somnolent, okay to give oral med Home meds will have to be on hold until she is alert enough to safely swallow - she's can no longer remember what she has for breakfast however, patient still highly verbal and interactive with daughter code status; intubation okay; no CPR wheelchair dependence bipolar depression in the past, [facility] try to take off her risperidone and that result in psychosis she's also on lamital before #DVT prophylaxis Lovenox #elevated troponin appears to be consistent with demand ischemia given her hypoxia and hypotensioncontinue to trend until peak. Echocardiogram in the morning. family update daughter and sister updated again on 12/26/2024; at 3pm Admission and Anticipated Discharge Date Admission Date: December 20, 2024 Subjective she's on 2-3 liter oxygen WBC still elevated, switching back to cefepime and flagyl limited historian, repeat CXR to ensure stability of PNA s/p MBS yesterday, Physical Exam Physical Exam: VITALS: Reviewed. WEIGHT/BMI reviewed. GEN: chronically ill appearing psych: no sign of psychosis \ HEENT -Head: NC/AT; -Mouth and throat: MMM. Normal gums, muc ernesto, palate,. Good dentition. NECK: Supple, with no masses. CV: RRR, no m/r/g. LUNGS: no wheezing; on 2-3 liter oxygen; no accessory muscle usage ABD: Soft, NT/ND, NBS, no masses or organomegaly. SKIN: Warm, well perfused. No skin rashes or abnormal lesions. MSK: No deformities, Normal gait. EXT: lymphedema NEURO: AAOx1. Results & Data Results & Data Vital Signs (Past 12 Hours) Vital Signs Temp Pulse Pulse Resp BP Pulse Ox Pulse Ox 12/28/24 08:03 36.5 C 61 14 136/83 96 12/28/24 07:31 53 L 16 95 12/28/24 02:35 36.6 C 76 18 136/80 94 12/28/24 01:59 64 21 94 12/28/24 01:57 56 L 19 95 12/27/24 23:32 36.5 C 57 L 18 144/94 H 95 12/27/24 23:06 67 16 95 12/27/24 22:24 61 12/27/24 22:00 94 O2 Del Method O2 Del Method O2 Flow Rate FiO2 12/28/24 08:03 Nebulizer 12/28/24 07:31 Nasal Cannula 3 12/28/24 02:35 BiPAP 12/28/24 01:59 BiPAP 40 12/28/24 01:57 40 12/27/24 23:32 BiPAP 12/27/24 23:06 40 12/27/24 22:24 12/27/24 22:00 BiPAP Laboratory Results Laboratory Results - last 72 hr 12/25/24 12/25/24 12/25/24 11:39 11:47 17:41 WBC RBC Hgb Hct MCV MCH MCHC RDW Std Deviation RDW Coeff of Guilherme Plt Count MPV Sodium Potassium Chloride Carbon Dioxide Anion Gap BUN Creatinine Est Cr Clr Drug Dosing eGFR BUN/Creatinine Ratio Glucose POC Glucose 158 H 144 H Calcium Total Bilirubin AST ALT Alkaline Phosphatase Troponin I High Sens 47.9 H Total Protein Albumin Globulin Albumin/Globulin Ratio 12/26/24 12/26/24 12/26/24 00:57 05:49 11:31 WBC RBC Hgb Hct MCV MCH MCHC RDW Std Deviation RDW Coeff of Guilherme Plt Count MPV Sodium 144 Potassium 3.7 Chloride 105 Carbon Dioxide 34 H Anion Gap 5 BUN 34 H Creatinine 0.52 L Est Cr Clr Drug Dosing 87.8 eGFR 92.13 BUN/Creatinine Ratio 65.4 H Glucose 149 H POC Glucose 148 H 163 H Calcium 9.3 Total Bilirubin 0.7 AST 20 ALT 15 Alkaline Phosphatase 54 Troponin I High Sens Total Protein 6.3 Albumin 3.2 L Globulin 3.1 Albumin/Globulin Ratio 1.0 12/26/24 12/26/24 12/27/24 16:08 20:37 05:51 WBC 9.91 RBC 4.10 L Hgb 12.9 Hct 40.4 MCV 98.5 MCH 31.5 MCHC 31.9 L RDW Std Deviation 46.4 H RDW Coeff of Guilherme 12.9 Plt Count 223 MPV 10.8 Sodium 143 Potassium 3.7 Chloride 101 Carbon Dioxide 35 H Anion Gap 7 BUN 32 H Creatinine 0.49 L Est Cr Clr Drug Dosing 92.7 eGFR 93.46 BUN/Creatinine Ratio 65.3 H Glucose 150 H POC Glucose 156 H 153 H Calcium 9.1 Total Bilirubin 0.6 AST 22 ALT 15 Alkaline Phosphatase 51 Troponin I High Sens Total Protein 6.2 Albumin 3.3 L Globulin 2.9 Albumin/Globulin Ratio 1.1 12/27/24 12/27/24 12/27/24 07:18 11:13 16:15 WBC RBC Hgb Hct MCV MCH MCHC RDW Std Deviation RDW Coeff of Guilherme Plt Count MPV Sodium Potassium Chloride Carbon Dioxide Anion Gap BUN Creatinine Est Cr Clr Drug Dosing eGFR BUN/Creatinine Ratio Glucose POC Glucose 146 H 164 H 145 H Calcium Total Bilirubin AST ALT Alkaline Phosphatase Troponin I High Sens Total Protein Albumin Globulin Albumin/Globulin Ratio 12/27/24 12/28/24 12/28/24 19:41 06:01 07:45 WBC 13.53 H RBC 4.21 Hgb 13.1 Hct 41.5 MCV 98.6 MCH 31.1 MCHC 31.6 L RDW Std Deviation 45.9 RDW Coeff of Guilherme 12.8 Plt Count 215 MPV 10.5 Sodium Potassium Chloride Carbon Dioxide Anion Gap BUN Creatinine Est Cr Clr Drug Dosing eGFR BUN/Creatinine Ratio Glucose POC Glucose 160 H 163 H Calcium Total Bilirubin AST ALT Alkaline Phosphatase Troponin I High Sens Total Protein Albumin Globulin Albumin/Globulin Ratio PG Care Time/CCT Total # of Minutes Spent Total Time Spent with Patient: Total time spent is greater than 50% in coordination of care (as documented) at patient's floor/unit and/or counseling patient: Coding Level of Care Code 37949 SUB INP/OBS CARE 05/08MIN Diagnoses Respiratory failure J96.90 Acute respiratory acidosis J96.02 AMS (altered mental status) R41.82 Pneumonia J18.9 Time Spent (min) 19
[2024-12-28] MEDS: CEFEPIME 2000MG 2,000 MG/20 ML SYR IV SCH (08:53)
[2024-12-28] MEDS: metroNIDAZOLE 500 MG/100 ML BAG IV SCH (08:53)
[2024-12-28] MEDS: MEMANTINE HCL 10 MG TAB PO SCH (13:04)
[2024-12-28] MEDS: ESCITALOPRAM OXALATE 10 MG TAB PO SCH (21:31)
[2024-12-28] MEDS: lamoTRIgine 100 MG TAB PO SCH (21:32)
[2024-12-29 06:46] LABS: Hematocrit (blood only) 40.2 % (37.0-47.0); Hemoglobin 13.5 g/dl (12.0-16.0); Mean Corpuscular Hemoglobin 32.3 pg (25.0-34.0); Mean Corpuscular Volume 96.2 fL (80.0-100.0); Platelet Count 254 K/uL (130-400); RDW Standard Deviation 45.0 fL (36.4-46.3); Red Blood Count 4.18 M/uL (4.20-5.40); White Blood Count 21.66 K/ul (4.8-10.8)
--- NOTE | 2024-12-29 10:08 | Hospitalist Progress Note ---
Date of Service December 29, 2024 Assessment & Plan (1) Respiratory failure: (2) Acute respiratory acidosis: (3) AMS (altered mental status): (4) Pneumonia: (5) ARDS (adult respiratory distress syndrome): (6) Acute respiratory failure with hypoxia and hypercapnia: (7) GERD (gastroesophageal reflux disease): Plan Gloria Romero is a 84 yo woman with PMH of dementia, bipolar depression, shes live in [facility] and is wheelchair bound Sister is a retired psychiatrist. Daughter noticed she been having coughing spell and wheezing since last week, on 12/20/2024, presented to our hospital with hypoxic, septic shock, CT chest show pneumonia 12/21, 10-15 liter of oxygen, started on vapotherm. flagyl added for aspiration coverage, 12/22/ on 60 liter oxygen; straight NPO, lactate improved. low dose IV lasix. 12/23/ started on bipap; tolerating, mentation stable, Lasix 20mg IV, creatinine stable 12/23; tolerating bipap overnight, BP stable, lasix 40mg IV 12/26; wean from high flow to nasal cannula, tolerate pureed diet #Acute on chronic respiratory failure with hypoxia and hypercapnia / Pneumonia (suspected aspiration) / Acute respiratory distress syndrome Respiratory failure suspected most likely due to aspiration pneumonia. Given improvement without significant diuretics and unremarkable echocardiogram the heart failure remains only a possible diagnosis and more likely ARDS; reasonable to continue Lasix until back to her baseline 2LPM O2, will continue Lasix 40mg PO daily, repeat BNP tomorrow Mostly on cefepime + metronidazole this admission but also had adequate course of azithromycin (cefepime switched to ceftriaxone for 2 days but then switched back, unclear reason why) > 7 days at this point, blood cultures negative, urine culture positive for w. coli adequately covered. Procalcitonin negative, we can discontinue antibiotics at this stage, increasing WBC suspect reflects steroids rather than infection given her clinical improvement (no diarrhea to suggest c. diff) Wean steroids to Solu-Medrol 40mg IV daily, continue to wean as outpatient Remove wilcox catheter #microaspiration, aspiration precaution Aspiration precautions as outlined in SLT plan #Delirium, component of septic metabolic encephalopathy stable, slowly improving Off her usual risperidone, plan on restarting on discharge as previous weaning led to psychosis but doing well without it here hx of paradoxical disinhibition to Ativan wheelchair dependence at baseline with assist of 1 #Bipolar disease Continue Wellbutrin, Lexapro and lamotrigine #GERD Restart on pantoprazole, suspect this is her epigastric pain on exam today #Elevated troponin Secondary to demand-ischemia, unremarkable echocardiogram VTE prophylaxis - Lovenox 40mg SQ daily Disposition - medically stable for discharge but not for transfer to another [facility] due to risk of delirium, unable to transport back to [facility] today, planning on tomorrow Admission and Anticipated Discharge Date Admission Date: December 20, 2024 Subjective Unable to get any history from patient. Patient seen again with sister and again with daughter and they report she is much closer to her baseline. Physical Exam Constitutional: well developed; no acute distress Respiratory: normal respiratory effort; no respiratory distress Auscultation: + crackles (bibasal); breath sounds present, no diminished lung sounds, no rales and no wheezes Cardiovascular: Rate/Rhythm: regular rate and regular rhythm Heart Sounds: no murmur Gastrointestinal (Abdomen): Percussion/Palpation: + abdomen tender (epigastric) and abdomen soft Psychiatric: Orientation: alert and oriented to person; + not oriented to place and + not oriented to time Results & Data Results & Data Vital Signs (Past 12 Hours) Vital Signs Temp Pulse Pulse Resp BP Pulse Ox O2 Del Method 12/29/24 08:00 36.8 C 73 16 127/57 L 93 Nasal Cannula 12/29/24 07:24 68 18 92 Nasal Cannula 12/29/24 03:53 37.4 C 69 16 132/71 93 BiPAP 12/29/24 03:00 69 14 95 12/29/24 02:18 Nasal Cannula, BiPAP 12/29/24 01:57 68 14 95 BiPAP 12/29/24 00:18 36.5 C 77 18 153/80 H 92 Nasal Cannula, BiPAP 12/28/24 22:22 81 16 96 O2 Flow Rate FiO2 12/29/24 08:00 3.0 12/29/24 07:24 3 12/29/24 03:53 4 12/29/24 03:00 40 12/29/24 02:18 4 12/29/24 01:57 40 12/29/24 00:18 12/28/24 22:22 40 PG Care Time/CCT Total # of Minutes Spent Total Time Spent with Patient: Total time spent is greater than 50% in coordination of care (as documented) at patient's floor/unit and/or counseling patient: Coding Level of Care Code 36545 SUB INP/OBS CARE 2/35MIN Diagnoses Respiratory failure J96.90 Acute respiratory acidosis J96.02 AMS (altered mental status) R41.82 Pneumonia J18.9 ARDS (adult respiratory distress syndrome) J80 Acute respiratory failure with hypoxia and hypercapnia J96.01; J96.02 GERD (gastroesophageal reflux disease) K21.9
[2024-12-29] MEDS: PANTOprazole 40 MG/10 ML SYR IV ONE (10:45)
--- NOTE | 2024-12-29 10:56 | XRay Report ---
XR chest 1V portable CLINICAL HISTORY: Hypoxia. COMPARISON STUDY: Chest radiograph and chest CT December 25, 2024. FINDINGS: There is no pneumothorax thorax or pleural effusion. Moderate elevation the right hemidiaph ragm is unchanged. Cardiomegaly and a hiatal hernia again noted. Mediastinal contours are stable. Int erstitial thickening and patchy bilateral airspace opacities persist. IMPRESSION: 1. Cardiomegaly. Persistent interstitial thickening and patchy bilateral airspace opacities. Pneumoni a is favored however pulmonary edema could appear similar. 2. Stable moderate elevation of the right hemidiaphragm. ACT 112: Negative or not required by law. Electronically signed by: Sai Reynaga M.D. 12/29/2024 10:55 AM
[2024-12-29] MEDS: FUROSEMIDE 40 MG TAB PO SCH (18:01)
[2024-12-30 07:06] LABS: Hematocrit (blood only) 35.2 % (37.0-47.0); Hemoglobin 12.1 g/dl (12.0-16.0); Mean Corpuscular Hemoglobin 33.0 pg (25.0-34.0); Mean Corpuscular Volume 95.9 fL (80.0-100.0); Platelet Count 239 K/uL (130-400); RDW Standard Deviation 45.1 fL (36.4-46.3); Red Blood Count 3.67 M/uL (4.20-5.40); White Blood Count 19.10 K/ul (4.8-10.8)
[2024-12-30 07:34] LABS: Anion Gap 4.0 (3-11); Blood Urea Nitrogen 32.0 mg/dl (6-23); Calcium 8.0 mg/dl (8.6-10.3); Carbon Dioxide 30.0 mmol/L (21-32); Chloride 100.0 mmol/L (98-107); Creatinine Clr Calc Pharmacy 95.7 ml/min; Glucose 118.0 mg/dl (70-99(Fasting)); Potassium 3.9 mmol/L (3.5-5.1); Sodium 134.0 mmol/L (136-145)
[2024-12-30 07:35] LABS: ALC (manual) 1.15 K/uL (1.2-3.4); ANC (manual) 17.57 K/uL (1.4-6.5); Polychromasia 1+; Toxic Vacuolation 1+
--- NOTE | 2024-12-30 10:23 | Discharge Summary ---
Discharge Summary Date of Service December 30, 2024 Principal Dx & Hospital Course #1 = Principal Diagnosis (1) Respiratory failure: (2) Acute respiratory acidosis: (3) AMS (altered mental status): (4) Pneumonia: (5) ARDS (adult respiratory distress syndrome): (6) Acute respiratory failure with hypoxia and hypercapnia: (7) GERD (gastroesophageal reflux disease): Mayda Romero is an 84 year old female admitted to [facility] from December 20 - 2024 due to unresponsive state. She was diagnosed with sepsis with acute hypoxic hypercapnic respiratory failure due to pneumonia. She was treated with BiPAP, Solu-medrol, cefepime, metronidazole and azithromycin. She slowly improved and now much closer to her prior baseline and tolerating oral minced and moist diet. She has now finished 10 days of antibiotics and will be weaned off steroids with te tapering course prescribed. She has continued to need 2-3LPM O2 which is close to her baseline. Due to decreased responsiveness her gabapentin was held during her hospitalization. Recommend restarting this only after being assessed by her outpatient physician - it has been placed on hold for now. She has also tolerated being off risperidone during her hospitalization but reportedly this has been tried off in the past in the jail and she developed psychosis therefore recommend restarting this when she returns to [facility]. Recommend using Boost drinks to help with her nutrition. Recommend ongoing PT and OT to help regain her strength. There was some initial concern for congestive heart failure however she improved with minimal diuretics and echocardiogram was unremarkable therefore recommend just repeating your CXR in 4-6 weeks to check for resolution. If worsening shortness of breath or hypoxia consider earlier CXR and diuretic. Suspect CXR changes are mostly acute respiratory distress syndrome (ARDS). Due to her daughter and sister's wish for non comfort care measures these medications have been discontinued and recommend they re-evaluate any POLST on file. Notes For Next Care Provider Evaluate to restart gabapentin if needed Evaluate for worsening shortness of breath ?need for diuretics Re-evaluate POLST - appears wishes of daughter and sister have changed from my conversation with them Medication Changes From Visit Tapering course steroids as she was on 40mg q8h Solu-medrol for the majority of her hospitalization Holding gabapentin as explained above Comfort care medications held per wishes of her daughter and sister Admission HPI Per Admitting Provider patient is an 84-year-old female presenting from [facility]. Her daughter notes that on Friday she was in her normal state of healthnoting that they were playing [employer] and the patient was correcting some of the daughter's mistakes. Today she found her to be unresponsive. She had very coarse respirations. No HPI or review of systems obtainable from patient. She was sent to the ER for further evaluation. Here she was found to be hypoxic as well as hypercapnic with a chest x-ray consistent with infiltrate and possibly pulmonary edema. Discharge Exam Constitutional well developed; no acute distress Respiratory normal respiratory effort; no respiratory distress Auscultation: + crackles (bibasal); breath sounds present, no diminished lung sounds, no rales and no wheezes Cardiovascular Rate/Rhythm: regular rate and regular rhythm Heart Sounds: no murmur Gastrointestinal (Abdomen) Percussion/Palpation: abdomen soft; abdomen nontender Psychiatric Orientation: alert and oriented to person; + not oriented to place and + not oriented to time Discharge Plan Discharge Items Patient Disposition: Transfer [facility] Reason For Visit: CAP, SEPSIS, HYPOXIA Discharge Diagnosis: Community acquired pneumonia Sepsis Acute respiratory failure with hypoxia and hypercapnia Condition on Discharge: Fair Activity: Resume your previous activity Non-emergency contact: Primary Care Provider Call non-emergency contact if: you have any medication questions and your symptoms worsen Follow-up/Referrals: [facility] [Primary Care Provider] - Diet: Regular Diet Texture: Mechanical soft (ground) Diet Comment: Miced and moist Addtl Attending Provider Instructions: You were admitted to [facility] from December 20 - 2024 due to unresponsive state. You were diagnosed with sepsis with acute hypoxic hypercapnic respiratory failure with pneumonia. You were treated with BiPAP, steroids and antibiotics. You slowly improved and now much closer to your baseline and tolerating oral minced and moist diet. You have been prescribed a tapering steroid dose on discharge. No further antibiotics are required. Due to decreased responsiveness your gabapentin was held during your hospitalization. Recommend restarting this only after being assessed by your outpatient doctors - it has been placed on hold for now. 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 Recommend using Boost drinks to help with your nutrition. Recommend ongoing PT and OT to help regain your strength. There was some initial concern for congestive heart failure however you improved with minimal diuretics and echocardiogram was unremarkable therefore recommend just repeating your CXR in 4-6 weeks to check for resolution. If worsening shortness of breath or hypoxia consider earlier CXR and diuretic. Suspect CXR changes are mostly acute respiratory distress syndrome (ARDS). Due to daughter and sisters wish for non comfort care measures these medications have been discontinued and recommend they re-evaluate any POLST on file. Pending Studies at Discharge: No Stand-Alone Forms: [facility] Skilled Items Patient informed of condition?: Yes DNR: Yes Discharge Level of Care: Skilled Communicable Disease: No Discharge Prognosis: Stable Lines: None Urinary Catheter: No Medications and DC Order Prescriptions: New prednisone 10 mg tablet See Rx Instructions .ROUTE .COMPLEX Qty: 20 0RF Rx Instructions: 40mg PO daily for 2 days, then 30 mg PO daily 2 days, then 20mg PO daily 2 days then 10mg PO daily 2 days Continued acetaminophen [Tylenol] 325 mg Tablet 650 mg PO Q6 MDD 3 GRAMS APAP/24 HOURS PRN (Reason: PAIN/FEVER) lidocaine 4 % Adhesive Patch,Medicated 1 patch TOPICAL DAILY Rx Instructions: PUT ON QAM, REMOVE AT HS bisacodyl [Dulcolax (bisacodyl)] 10 mg Suppository 10 mg OK DAILY PRN (Reason: Constipation) Rx Instructions: per bowel protocol pantoprazole 40 mg Tablet,Delayed Release (Dr/Ec) 40 mg PO HS ferrous sulfate [FeroSul] 325 mg (65 mg iron) tablet 325 mg PO QAM nitroglycerin [Nitrostat] 0.4 mg Tablet, Sublingual 0.4 mg sublingual UD PRN (Reason: Chest Pain) escitalopram oxalate [Lexapro] 10 mg Tablet 10 mg PO HS memantine 10 mg Tablet 10 mg PO BIDM acetaminophen [Tylenol] 325 mg Tablet 650 mg PO TIDM MDD 3 GRAMS APAP/24 HOURS sennosides-docusate sodium [Senna Plus] 8.6-50 mg Tablet 1 tab-cap PO BIDM risperidone 0.25 mg Tablet 0.25 mg PO BIDM aspirin 81 mg Tablet,Delayed Release (Dr/Ec) 81 mg PO DAILY lamotrigine [Lamictal] 25 mg Tablet 25 mg PO HS bupropion HCl 100 mg tablet 200 mg PO BIDM polyethylene glycol 3350 [Miralax] 17 gram/dose Powder 17 g PO DAILY alum-mag hydroxide-simeth 400-400-40 mg/5 mL Suspension 15 ml PO Q6H PRN (Reason: EPIGASTRIC PAIN) Probiotic (with Vitamin D3) 2 billion cell- 5 mcg Tablet,Chewable 1 tab PO BID Held gabapentin 100 mg Tablet 100 mg PO TIDM Hold Instructions: Resume on 01/05/25. Held during hospitalization, can restart as long as it doesn't make her drowsy Discontinued promethazine 25 mg/mL Solution 25 mg IM Q8H PRN (Reason: NAUSEA/VOMITING FOR 14 DAYS) Rx Instructions: STARTED 12/20/24 atropine 1 % Drops 2 drp BUCCAL Q1H PRN (Reason: EXCESSIVE SECRETIONS) morphine concentrate 20 mg/mL Syringe 10 mg SUBLINGUAL Q1H PRN (Reason: Pain) Discharge Orders: Discharge Order (Routine); Ordered 12/30/24 Ordered By: Papo Jensen Admission Data Admit Date/Time: 12/20/24 20:18 Attending Provider: Papo Jensen Admit Provider: Elvin Cummins Primary Care Provider: Berto Dejesus Other Providers: Berto Dejesus; Grey Kraft Other Interventions: Discharge Summary Assessment (RN) Last Done: 12/30/24 15:37 Hospital Stay Data Consultations 12/20/24 18:09 ED Decision to Admit Stat Diagnostic Imagining Performed 12/20/24 18:34 CT chest diagnostic wo con Stat 12/22/24 07:52 US venous duplex leg [US venous doppler LE BI] Routine 12/25/24 11:38 CT angio chest PE protocol Stat Pending Results Patient Have Any Pending Studies at Discharge: No Discharge Instructions Given to Patient (Per Discharging Provider) You were admitted to [facility] from December 20 - 2024 due to unresponsive state. You were diagnosed with sepsis with acute hypoxic hypercapnic respiratory failure with pneumonia. You were treated with BiPAP, steroids and antibiotics. You slowly improved and now much closer to your baseline and tolerating oral minced and moist diet. You have been prescribed a tapering steroid dose on discharge. No further antibiotics are required. Due to decreased responsiveness your gabapentin was held during your hospitalization. Recommend restarting this only after being assessed by your outpatient doctors - it has been placed on hold for now. 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 Recommend using Boost drinks to help with your nutrition. Recommend ongoing PT and OT to help regain your strength. There was some initial concern for congestive heart failure however you improved with minimal diuretics and echocardiogram was unremarkable therefore recommend just repeating your CXR in 4-6 weeks to check for resolution. If worsening shortness of breath or hypoxia consider earlier CXR and diuretic. Suspect CXR changes are mostly acute respiratory distress syndrome (ARDS). Due to daughter and sisters wish for non comfort care measures these medications have been discontinued and recommend they re-evaluate any POLST on file. Total Time Total Time Spent Total Time Spent (In Minutes): 35 Coding Level of Care Code 24609 INP/OBS DISCH >30 MIN Diagnoses Respiratory failure J96.90 Acute respiratory acidosis J96.02 AMS (altered mental status) R41.82 Pneumonia J18.9 ARDS (adult respiratory distress syndrome) J80 Acute respiratory failure with hypoxia and hypercapnia J96.01; J96.02 GERD (gastroesophageal reflux disease) K21.9
[2024-12-30 11:08] VITALS: BP 128/70; PULSE 84; TEMP 98.6
[2024-12-30 13:28] VITALS: RESP 19; O2SAT 93
--- NOTE | 2024-12-30 15:45 | Electrocardiogram Report ---
Test Reason : Blood Pressure : */* mmHG Vent. Rate : 87 BPM Atrial Rate : 87 BPM P-R Int : 146 ms QRS Dur : 84 ms QT Int : 360 ms P-R-T Axes : 33 -27 85 degrees QTcB Int : 433 ms Normal sinus rhythm Minimal voltage criteria for LVH, may be normal variant Possible Anterior infarct (cited on or before 17-Oct-2020) Abnormal ECG When compared with ECG of 25-Dec-2024 11:43, Questionable change in initial forces of Anterior leads Nonspecific T wave abnormality, worse in Inferior leads Nonspecific T wave abnormality now evident in Lateral leads Confirmed by Toribio Saravia ([id number]) on 12/30/2024 3:45:26 PM Referred By: REFERRED SELF Confirmed By: Toribio Saravia
== END 2024-12-30 15:35 | DRG 871 ==
LOC: ED 15:51 → 2E 20:18 → SUATTDRO 20:18 → 2E 23:25
DX: Z88.2 Allergy status to sulfonamides; J69.0 Pneumonitis due to inhalation of food and vomit; J96.02 Acute respiratory failure with hypercapnia; F03.90 Unspecified dementia, unspecified severity, without behavioral disturbance, psychotic disturbance, mood disturbance, and anxiety; J81.1 Chronic pulmonary edema; I24.89 Other forms of acute ischemic heart disease; Z99.3 Dependence on wheelchair; K21.9 Gastro-esophageal reflux disease without esophagitis; Z79.82 Long term (current) use of aspirin; F31.9 Bipolar disorder, unspecified; J80 Acute respiratory distress syndrome; A41.9 Sepsis, unspecified organism; G93.41 Metabolic encephalopathy; R65.21 Severe sepsis with septic shock; Z88.0 Allergy status to penicillin; J96.91 Respiratory failure, unspecified with hypoxia; J96.01 Acute respiratory failure with hypoxia